=== PATIENT | male | born 1935 | race American Indian/Alaskan Native ===

== ENCOUNTER 2016-05-12 17:20 | Inpatient (IN) | payer MEDICARE ==
[2016-05-12 18:18] LABS: Hematocrit 26.5 % (35.5-45.6); Hemoglobin 8.6 gm/dl (11.8-15.2); Mean Corpuscular HGB Conc 32 % (32-34); Mean Corpuscular Hemoglobin 27 pg (28-32); Mean Corpuscular Volume 82 fl (84-94); Platelet Count 340 K/mm3 (140-440); Red Blood Count 3.24 M/mm3 (3.65-5.03); Red Cell Distribution Width 18.6 % (13.2-15.2); White Blood Count 9.6 K/mm3 (4.5-11.0)
[2016-05-12] MEDS ORDERED: DUONEB 0.5 MG-3 MG/3 ML SOLN IH ONE (18:18)
[2016-05-12 18:26] LABS: Anion Gap 25 mmol/L; Blood Urea Nitrogen 27 mg/dL (9-20); Calcium 9.4 mg/dL (8.4-10.2); Carbon Dioxide 17 mmol/L (22-30); Glucose 82 mg/dL (75-100); Potassium 5.5 mmol/L (3.6-5.0); Sodium 138 mmol/L (137-145)
--- NOTE | 2016-05-12 18:31 | Emergency Department Report ---
HPI - General Chief Complaint: Dyspnea/Respdistress Time Seen by Provider: 05/12/16 18:12 - HPI HPI: This is a 80-year-old Afro-Bhut[place] male presents to the emergency department by EMS from home with complaint of shortness of breath and some generalized chest tightness has been going on since this morning. The patient has been using his inhaler without much relief. He denies any fever, back pain, nausea, vomiting or diaphoresis. He has a history of asthma, COPD not on oxygen, diabetes, left lower extremity DVT, and multiple hip surgeries. Patient complains of a few days of left lower extremity swelling around the foot and ankle. He is on Coumadin from a previous DVT and says he has been compliant with medications. The patient lives alone but is not ambulatory and is able to do his ADLs by using crutches. He has a primary care doctor but cannot name at this current time. No recent travel. ED Past Medical Hx - Past Medical History Previous Medical History?: Yes Hx Hypertension: Yes Hx Diabetes: Yes Hx Arthritis: Yes Hx Asthma: Yes Hx COPD: Yes Hx HIV: No Additional medical history: left foot dvt - Surgical History Hx Appendectomy: Yes Additional Surgical History: Total hip replacement and surgeries x 19 (10/31/15: currently has residual infections from most recent hip replacement performed in 2014) - Social History Smoking Status: Former Smoker - Medications Home Medications: Home Medications Medication Instructions Recorded Confirmed Last Taken Type Lisinopril/Hydrochlorothiazide 1 tab PO QDAY 12/11/15 05/12/16 1 Day Ago History [Zestoretic 20-25 mg] Metformin HCl [Glucophage] 1 tab PO DAILY 01/17/16 05/12/16 Unknown History Ipratropium/Albuter (Nf) 2 puff IH QID #1 inha 01/24/16 05/12/16 Unknown Rx [Combivent Inhaler] Warfarin [Coumadin] 5 mg PO DAILY@1700 #10 tablet 01/24/16 05/12/16 Unknown Rx Azithromycin [Zithromax TAB] 250 mg PO QDAY #6 tablet 04/29/16 05/12/16 Unknown Rx Prednisone [predniSONE 10 mg 10 mg PO .TAPER #1 tab.ds.pk 04/29/16 05/12/16 Unknown Rx (6-Day Pack, 21 Tabs)] glipiZIDE [Glucotrol] 5 mg PO QDAY 05/12/16 05/12/16 Unknown History ED Review of Systems ROS: Stated complaint: ATTILA Other details as noted in HPI Comment: All other systems reviewed and negative Constitutional: denies: chills, fever Eyes: denies: eye pain, eye discharge, vision change ENT: denies: ear pain, throat pain Respiratory: cough, shortness of breath, wheezing Cardiovascular: chest pain, edema. denies: palpitations Gastrointestinal: denies: abdominal pain, nausea, diarrhea Genitourinary: denies: urgency, dysuria Musculoskeletal: denies: back pain, joint swelling, arthralgia Skin: denies: rash, lesions Neurological: denies: headache, weakness, paresthesias Physical Exam - Physical Exam Vital Signs: Vital Signs 05/12/16 05/12/16 05/12/16 17:32 17:36 17:44 Temperature 98.3 F Pulse Rate 122 H Blood Pressure 136/62 O2 Sat by Pulse 99 Oximetry Physical Exam: GENERAL: The patient is well-developed well-nourished. HEENT: Normocephalic. Atraumatic. Extraocular motions are intact. Patient has moist mucous membranes. Pupils equal reactive to light bilaterally. NECK: Supple. Trachea is midline. CHEST/LUNGS: Moderate wheezing throughout the chest. There is tachypnea but no accessory muscle use. There is no respiratory distress noted. HEART/CARDIOVASCULAR: Regular. There is mild tachycardia. There is no gallop rub or murmur. ABDOMEN: Abdomen is soft, nontender. Patient has normal bowel sounds. There is no abdominal distention. SKIN: Warm and dry. NEURO: The patient is awake, alert, and oriented. The patient is cooperative. The patient has no focal neurologic deficits. The patient has normal speech. MUSCULOSKELETAL: There is no tenderness or deformity. There is no limitation range of motion. There is no evidence of acute injury. ED Course Vital Signs 05/12/16 05/12/16 05/12/16 17:32 17:36 17:44 Temperature 98.3 F Pulse Rate 122 H Blood Pressure 136/62 O2 Sat by Pulse 99 Oximetry ED Medical Decision Making - Lab Data Result diagrams: 05/12/16 17:54 05/12/16 17:53 - EKG Data -: EKG Interpreted by Me EKG shows normal: sinus rhythm, axis, intervals, QRS complexes, ST-T waves Rate: tachycardia (109 bpm) - EKG Data When compared to previous EKG there are: previous EKG unavailable Interpretation: normal EKG (with sinus tach) - Radiology Data Radiology results: report reviewed, image reviewed interpreted by me: Chest x-ray shows some hyperinflation of the lungs and some signs of some interstitial lung disease. No obvious pneumonia. No pleural effusions. No pneumothorax. CT angiography of the chest shows no embolism or dissection. Emphysema and fibrotic densities are seen. - Medical Decision Making Is a 80-year-old male presents the emergency department with complaint of shortness of breath and some chest tightness this morning. Patient's lungs sound tight with some moderate wheezing but there is no respiratory distress seen. Patient was given some breathing treatments and steroids. Patient's labs show some hyperkalemia with potassium of 5.5, supratherapeutic INR and anemia. Patient still had a elevated and equivocal d-dimer and due to his complaints of pain and shortness of breath, despite his supratherapeutic INR, he had a CT angiography of the chest done that did not show any PE or dissection but did show signs of emphysema and some fibrotic densities. The patient had some hypoxia when he was first in the emergency department. This is improved with supplemental oxygen and breathing treatments. However the patient continues to have tachycardia and bronchospasm. This reason the patient will be admitted to the hospital for further evaluation and treatment has been accepted for admission by the hospitalist, Dr. Rodríguez. - Differential Diagnosis PE, [place], asthma, COPD, pneumonia, CHF Critical Care Time: No Critical care attestation.: If time is entered above; I have spent that time in minutes in the direct care of this critically ill patient, excluding procedure time. ED Disposition Clinical Impression: COPD with exacerbation, Shortness of breath, Supratherapeutic INR, Hyperkalemia Chest pain Qualifiers: Chest pain type: unspecified Qualified Code(s): R07.9 - Chest pain, unspecified Disposition: OP ADMITTED IP TO THIS HOSP Is pt being admited?: Yes Does the pt Need Aspirin: Yes Condition: Stable Instructions: Chronic Obstructive Pulmonary Disease (ED), Chest Pain (ED) Referrals: PRIMARY CARE, [Primary Care Provider] - 3-5 Days Time of Disposition: 00:50
[2016-05-12 18:49] LABS: INR 4.89 (0.87-1.13)
[2016-05-12 18:50] LABS: Partial Thromboplastin Time 56.4 Sec. (24.2-36.6)
[2016-05-12] MEDS ORDERED: PROVENTIL IH ONE (19:00)
[2016-05-12] MEDS ORDERED: KIONEX PO ONE (19:01)
[2016-05-12 19:56] LABS: Anisocytosis 1+; Basophils % (Manual) 0 % (0.0-1.8); Blastocytes % (Manual) 0 %; Eosinophils % (Manual) 0 % (0.0-4.3); Microcytosis 1+; Poikilocytosis 1+
[2016-05-12 19:57] LABS: Diff Status Complete; Elliptocytes 1+; Hypochromasia 1+; Platelet Estimate Consistent w Auto
[2016-05-12] MEDS ORDERED: NACL ONE (19:57)
[2016-05-12] MEDS ORDERED: BENADRYL ONE (21:05)
[2016-05-12] MEDS ORDERED: BENADRYL IV ONE (21:13)
--- NOTE | 2016-05-12 22:54 | Cat Scan Report ---
FINAL REPORT PROCEDURE: CT ANGIO CHEST TECHNIQUE: Computerized tomographic angiography of the chest was performed after the IV injection of iodinated nonionic contrast including image processing. The image data was postprocessed using 2-dimensional multiplanar reformatted (MPR) and 3-dimensional (MIP and/or volume rendered) techniques. HISTORY: SOB COMPARISON: January 18, 2016 FINDINGS: Heart and pericardium: Normal. Thoracic aorta: Aorta is calcified and tortuous. Pulmonary vasculature: Suboptimal enhancement. No embolism seen. Lymph nodes: Calcified mediastinal lymph nodes.. Lungs: Emphysema and fibrotic densities. Right upper lobe nodule measuring 0.6 cm, axial series 3, image 48. Moderate tracheomegaly. Pleural space: No effusion, thickening, or pneumothorax. Musculoskeletal structures: Degenerative change. Upper abdominal structures: Hepatic cysts. IMPRESSION: No embolism seen. Emphysema and fibrotic densities.
[2016-05-13] MEDS ORDERED: BABY ASPIRIN PO ONE (00:50)
[2016-05-13] MEDS ORDERED: DULCOLAX PR PRN (01:22)
[2016-05-13] MEDS ORDERED: MILK OF MAGNESIA PO PRN (01:22)
[2016-05-13] MEDS ORDERED: ZOFRAN IV PRN (01:22)
--- NOTE | 2016-05-13 01:26 | History and Physical Report ---
History of Present Illness Date of examination: 05/13/16 History of present illness: 80-year-old man with a history of COPD, hypertension, diabetes, CHF constant emergency room with worsening shortness of breath, cough productive of thick white phlegm,, not relieved with his nebulizer treatments at home Patient denies chest pain, palpitation, abdominal pain, hematochezia, dysuria, frequency, focal weakness, dysarthria, fever chills, polydipsia polyuria, hot or cold intolerance, easy bruisability, or rash or bleeding from mucosal membrane, rhinorrhea, epistaxis, earache, tinnitus, blurry vision, eye discharge , anxiety, depression. Other review of systems negative PAST SURGICAL HISTORY: Appendectomy, hip replacement SOCIAL HISTORY: Denies alcohol, tobacco, drugs FAMILY HISTORY: Hypertension Medications and Allergies Allergies Allergy/AdvReac Type Severity Reaction Status Date / Time iodine Allergy Shortness Verified 09/09/15 21:37 of Breath shellfish derived Allergy Shortness Verified 10/31/15 02:03 of Breath Home Medications Medication Instructions Recorded Confirmed Last Taken Type Lisinopril/Hydrochlorothiazide 1 tab PO QDAY 12/11/15 05/12/16 1 Day Ago History [Zestoretic 20-25 mg] Metformin HCl [Glucophage] 1 tab PO DAILY 01/17/16 05/12/16 Unknown History Ipratropium/Albuter (Nf) 2 puff IH QID #1 inha 01/24/16 05/12/16 Unknown Rx [Combivent Inhaler] Warfarin [Coumadin] 5 mg PO DAILY@1700 #10 tablet 01/24/16 05/12/16 Unknown Rx Azithromycin [Zithromax TAB] 250 mg PO QDAY #6 tablet 04/29/16 05/12/16 Unknown Rx Prednisone [predniSONE 10 mg 10 mg PO .TAPER #1 tab.ds.pk 04/29/16 05/12/16 Unknown Rx (6-Day Pack, 21 Tabs)] glipiZIDE [Glucotrol] 5 mg PO QDAY 05/12/16 05/12/16 Unknown History Exam - Physical Exam Narrative exam: Gen. appearance: Patient lying in bed, no apparent distress HEENT: Normocephalic, atraumatic, pupils equally round and reactive to light, extraocular movement intact, and no sclericterus,. No JVD or thyromegaly or nodule,neck supple, no carotid bruit ,mucous membranes moist, no exudate or erythema Heart: S1, S2, regular rate and rhythm Lungs: Clear to auscultation bilaterally, breathing comfortable Abdomen: Positive bowel sounds, nontender, nondistended, no organomegaly Extremity: No edema, cyanosis, clubbing Skin: No rash, nodules, warm, dry Neuro: Oriented 3, cranial nerves II-12 intact, speech is fluent, motor and sensory intact - Constitutional Vitals: Temp Pulse Resp BP Pulse Ox 98.3 F 121 H 26 H 132/66 99 05/12/16 17:36 05/12/16 21:00 05/12/16 21:00 05/12/16 21:00 05/12/16 21:00 Results - Labs CBC & Chem 7: 05/12/16 17:54 05/12/16 17:53 Labs: Abnormal lab results 05/12/16 05/12/16 05/12/16 Range/Units 17:53 17:54 18:25 RBC 3.24 L (3.65-5.03) M/mm3 Hgb 8.6 L (11.8-15.2) gm/dl Hct 26.5 L (35.5-45.6) % MCV 82 L (84-94) fl MCH 27 L (28-32) pg RDW 18.6 H (13.2-15.2) % Seg Neuts % (Manual) 91.0 H (40.0-70.0) % Lymphocytes % (Manual) 2.0 L (13.4-35.0) % Seg Neutrophils # Man 8.7 H (1.8-7.7) K/mm3 Lymphocytes # (Manual) 0.2 L (1.2-5.4) K/mm3 PT 46.2 H (12.2-14.9) Sec. INR 4.89 H (0.87-1.13) APTT 56.4 H (24.2-36.6) Sec. D-Dimer 1051.41 H (0-234) ng/mlDDU Potassium 5.5 H (3.6-5.0) mmol/L Carbon Dioxide 17 L (22-30) mmol/L BUN 27 H (9-20) mg/dL - Imaging and Cardiology EKG: image reviewed Chest x-ray: image reviewed CT scan - chest: report reviewed Assessment and Plan COPD exacerbation Hypertension Diabetes CHF, stable Admits medicine Start high-dose IV steroids, nebulizer treatments Check cardiac enzymes, fingersticks, and initiate insulin sliding scale Continue outpatient medications, start dvt prophalaxis
[2016-05-13] MEDS ORDERED: CARDIZEM ONE (02:06)
[2016-05-13] MEDS ORDERED: TYLENOL ONE (02:13)
[2016-05-13] MEDS ORDERED: CARDIZEM PO ONE (02:14)
[2016-05-13 02:18] LABS: Creatine Kinase MB 2.3 ng/mL (0.0-4.0)
[2016-05-13 02:19] LABS: Creatine Kinase 97 units/L (55-170)
[2016-05-13] MEDS: TYLENOL PO PRN ×3 (02:21→21:29)
[2016-05-13] MEDS ORDERED: BABY ASPIRIN ONE (02:25)
[2016-05-13] MEDS ORDERED: DUONEB 0.5 MG-3 MG/3 ML SOLN IH ONE (02:26)
[2016-05-13] MEDS: DUONEB 0.5 MG-3 MG/3 ML SOLN IH SCH ×4 (02:27→20:28)
[2016-05-13 03:48] LABS: Creatine Kinase MB 2.4 ng/mL (0.0-4.0)
[2016-05-13 08:32] LABS: Creatine Kinase MB 2.1 ng/mL (0.0-4.0)
--- NOTE | 2016-05-13 08:35 | XRay Report ---
AP CHEST: HISTORY: Shortness of breath Mild chronic interstitial changes and chronic granulomatous findings are stable since 04/26/16. No evidence for pneumonia, pleural effusion or pneumothorax. Heart size is within normal limits. IMPRESSION: No acute cardiopulmonary process.
--- NOTE | 2016-05-13 09:32 | Admit Criteria Form ---
Admission Criteria Documentation: COPD Clinical Indications for Admission to Inpatient Care (Place 'X' for any and all applicable criteria): Admission is indicated for ANY ONE of the following (1)(2)(3): [ ]I. Acute exacerbation by high-risk comorbidity (e.g., pneumonia, dysrhythmia, heart failure, pleural effusion, pneumothorax) or severe underlying COPD (e.g., steroid dependent) [X]II. Inpatient admission required rather than observation care (see Chronic Obstructive Pulmonary Disease: Observation Care) because of ANY ONE of the following: [X]a) New or pre-existing signs or symptoms of COPD (eg, dyspnea or Tachypnea at rest or with minimal activity) that persist despite outpatient and observation care treatment [ ]b) New-onset hypoxemia (room air SaO2 less than 90%, PO2 less than 60 mm Hg (8.0 kPa)) that persists despite outpatient and observation care treatment [ ]c) Worsening of pre-existing hypoxemia (eg, new or increased requirement for supplemental oxygen to maintain oxygenation at baseline level) that persists despite outpatient and observation care treatment, with oxygen treatment needs performable only in acute inpatient setting [ ]d) Hypercarbia (PCO2 greater than 40 mm Hg (5.3 kPa))-induced respiratory acidosis (pH less than 7.35) that persists despite outpatient and observation care treatment [ ]e) Supplemental oxygen or respiratory treatments for over 24 hours that are performable only in acute inpatient setting [ ]f) Chest tube placement with active evacuation (e.g., suction, drainage) (5) [ ]g) Other condition, treatment or monitoring requiring inpatient admission [ ]III. Planned invasive surgical or diagnostic procedures requiring acute- care hospitalization [ ]IV. Acute respiratory failure (e.g., uncompensated hypercarbia, severe hypoxemia) [ ]V. Severe comorbid condition (e.g., severe steroid myopathy, acute vertebral fracture) that has acutely worsened pulmonary function [ ]. Confusion state, lethargy, obtundation, stupor or coma Extended stay beyond goal length of stay may be needed for (31)(32): [ ]a ) Respiratory Failure. [ ]b) Severe or persisting hypoxemia or hypercarbia [ ]c) Severe or persistent dyspnea [ ]d) Comorbidities (e.g. chronic heart failure, atrial fibrillation with rapid response, pneumonia) [ ]e) Malnutrition The original [facility] content created by [facility] has been revised. The portions of the content which have been revised are identified through the use of italic text or in bold, and [facility] has neither reviewed nor approved the modified material. All other unmodified content is copyright [facility]. Please see references footnoted in the original [facility] edition 2016 Admission Criteria Met: Yes
[2016-05-13] MEDS ORDERED: D50W (25GM) IV PRN (11:59)
[2016-05-13] MEDS ORDERED: PROVENTIL IH PRN (12:37)
[2016-05-13] MEDS ORDERED: NON-FORMULARY (Ipratropium/Albuter (Nf) 2 PUFF) IH SCH (14:00)
[2016-05-13 14:24] LABS: INR 7.6 (0.87-1.13)
[2016-05-13] MEDS ORDERED: COUMADIN PO SCH ×2 (17:00)
[2016-05-13] MEDS: NOVOLOG SUB-Q SCH (17:48)
[2016-05-14] MEDS: NOVOLOG SUB-Q SCH ×6 (00:46→22:33)
[2016-05-14] MEDS: DUONEB 0.5 MG-3 MG/3 ML SOLN IH SCH ×5 (01:04→19:41)
[2016-05-14 05:51] LABS: Hematocrit 22.6 % (35.5-45.6); Hemoglobin 7.4 gm/dl (11.8-15.2); Mean Corpuscular HGB Conc 33 % (32-34); Mean Corpuscular Hemoglobin 27 pg (28-32); Mean Corpuscular Volume 81 fl (84-94); Platelet Count 324 K/mm3 (140-440); Red Blood Count 2.79 M/mm3 (3.65-5.03); Red Cell Distribution Width 18.4 % (13.2-15.2); White Blood Count 10.9 K/mm3 (4.5-11.0)
[2016-05-14 06:04] LABS: Anion Gap 20 mmol/L; Blood Urea Nitrogen 34 mg/dL (9-20); Calcium 8.8 mg/dL (8.4-10.2); Carbon Dioxide 22 mmol/L (22-30); Chloride 101.4 mmol/L (98-107); Glucose 166 mg/dL (75-100); Potassium 5.3 mmol/L (3.6-5.0); Sodium 138 mmol/L (137-145)
[2016-05-14 06:05] LABS: INR 6.46 (0.87-1.13)
[2016-05-14 07:26] LABS: INR 6.12 (0.87-1.13)
[2016-05-14 07:36] LABS: Basophils % (Manual) 0 % (0.0-1.8); Blastocytes % (Manual) 0 %; Eosinophils % (Manual) 0 % (0.0-4.3)
[2016-05-14 07:37] LABS: Anisocytosis 1+; Diff Status Complete; Elliptocytes Few; Hypochromasia 1+; Poikilocytosis Few; Schistocytes Rare
[2016-05-14] MEDS: TYLENOL PO PRN ×3 (08:27→21:07)
--- NOTE | 2016-05-14 09:53 | Progress Note ---
Assessment and Plan Assessment and plan: 1. Acute hypoxemic respiratory failure. Continue O2 for supportive care. Etiology secondary to COPD exacerbation. CTA negative for PE 2. Acute COPD exacerbation. Continue IV steroids, bronchodilators, nebulizers and O2 for supportive care. 3. Hypertension. Resume antihypertensive medications. 4. Type 2 diabetes mellitus. Continue Accu-Cheks and sliding scale. 5. Coagulopathy. Continue to hold Coumadin. 6. Anemia. Given the anticoagulation will check Hemoccult of stools. Transfuse for hemoglobin less than 7.0. History Interval history: No new issues overnight. Hospitalist Physical - Constitutional Vitals: Temp Pulse Resp BP Pulse Ox 98.2 F 95 H 20 100/55 97 05/13/16 16:00 05/14/16 02:46 05/14/16 02:46 05/13/16 16:00 05/13/16 16:00 General appearance: Present: no acute distress, well-nourished - EENT Eyes: Present: PERRL, EOM intact ENT: hearing intact, clear oral mucosa, dentition normal - Neck Neck: Present: supple, normal ROM - Respiratory Respiratory effort: normal Respiratory: bilateral: diminished, rhonchi, wheezing - Cardiovascular Rhythm: regular Heart Sounds: Present: S1 & S2. Absent: gallop, rub - Extremities Extremities: no ischemia, No edema, Full ROM - Abdominal General gastrointestinal: soft, non-tender, non-distended, normal bowel sounds - Integumentary Integumentary: Present: clear, warm, dry - Neurologic Neurologic: CNII-XII intact, moves all extremities Results - Labs CBC & Chem 7: 05/14/16 05:23 05/14/16 05:23 Labs: Laboratory Last Values WBC 10.9 K/mm3 (4.5-11.0) 05/14/16 05:23 RBC 2.79 M/mm3 (3.65-5.03) L 05/14/16 05:23 Hgb 7.4 gm/dl (11.8-15.2) L 05/14/16 05:23 Hct 22.6 % (35.5-45.6) L 05/14/16 05:23 MCV 81 fl (84-94) L 05/14/16 05:23 MCH 27 pg (28-32) L 05/14/16 05:23 MCHC 33 % (32-34) 05/14/16 05:23 RDW 18.4 % (13.2-15.2) H 05/14/16 05:23 Plt Count 324 K/mm3 (140-440) 05/14/16 05:23 Add Manual Diff Complete 05/14/16 05:23 Total Counted 100 05/14/16 05:23 Seg Neutrophils % [employer] 05/14/16 05:23 Seg Neuts % (Manual) 91.0 % (40.0-70.0) H 05/14/16 05:23 Band Neutrophils % 0 % 05/14/16 05:23 Lymphocytes % (Manual) 6.0 % (13.4-35.0) L 05/14/16 05:23 Reactive Lymphs % (Man) 0 % 05/14/16 05:23 Monocytes % (Manual) 3.0 % (0.0-7.3) 05/14/16 05:23 Eosinophils % (Manual) 0 % (0.0-4.3) 05/14/16 05:23 Basophils % (Manual) 0 % (0.0-1.8) 05/14/16 05:23 Metamyelocytes % 0 % 05/14/16 05:23 Myelocytes % 0 % 05/14/16 05:23 Promyelocytes % 0 % 05/14/16 05:23 Blast Cells % 0 % 05/14/16 05:23 Nucleated RBC % Not Reportable 05/14/16 05:23 Seg Neutrophils # Man 9.9 K/mm3 (1.8-7.7) H 05/14/16 05:23 Band Neutrophils # 0.0 K/mm3 05/14/16 05:23 Lymphocytes # (Manual) 0.7 K/mm3 (1.2-5.4) L 05/14/16 05:23 Abs React Lymphs (Man) 0.0 K/mm3 05/14/16 05:23 Monocytes # (Manual) 0.3 K/mm3 (0.0-0.8) 05/14/16 05:23 Eosinophils # (Manual) 0.0 K/mm3 (0.0-0.4) 05/14/16 05:23 Basophils # (Manual) 0.0 K/mm3 (0.0-0.1) 05/14/16 05:23 Metamyelocytes # 0.0 K/mm3 05/14/16 05:23 Myelocytes # 0.0 K/mm3 05/14/16 05:23 Promyelocytes # 0.0 K/mm3 05/14/16 05:23 Blast Cells # 0.0 K/mm3 05/14/16 05:23 WBC Morphology Not Reportable 05/14/16 05:23 Hypersegmented Neuts Not Reportable 05/14/16 05:23 Hyposegmented Neuts Not Reportable 05/14/16 05:23 Hypogranular Neuts Not Reportable 05/14/16 05:23 Smudge Cells Not Reportable 05/14/16 05:23 Toxic Granulation Not Reportable 05/14/16 05:23 Toxic Vacuolation Not Reportable 05/14/16 05:23 Dohle Bodies Not Reportable 05/14/16 05:23 Pelger-Huet Anomaly Not Reportable 05/14/16 05:23 Yvonne Rods Not Reportable 05/14/16 05:23 Platelet Estimate Appears normal 05/14/16 05:23 Clumped Platelets Not Reportable 05/14/16 05:23 Plt Clumps, EDTA Not Reportable 05/14/16 05:23 Large Platelets Not Reportable 05/14/16 05:23 Giant Platelets Not Reportable 05/14/16 05:23 Platelet Satelliting Not Reportable 05/14/16 05:23 Plt Morphology Comment Not Reportable 05/14/16 05:23 RBC Morphology Not Reportable 05/14/16 05:23 Dimorphic RBCs Not Reportable 05/14/16 05:23 Polychromasia Not Reportable 05/14/16 05:23 Hypochromasia 1+ 05/14/16 05:23 Poikilocytosis Few 05/14/16 05:23 Anisocytosis 1+ 05/14/16 05:23 Microcytosis Not Reportable 05/14/16 05:23 Macrocytosis Not Reportable 05/14/16 05:23 Spherocytes Not Reportable 05/14/16 05:23 Pappenheimer Bodies Not Reportable 05/14/16 05:23 Sickle Cells Not Reportable 05/14/16 05:23 Target Cells Not Reportable 05/14/16 05:23 Tear Drop Cells Not Reportable 05/14/16 05:23 Ovalocytes Not Reportable 05/14/16 05:23 Helmet Cells Not Reportable 05/14/16 05:23 Ngo-Chaumont Bodies Not Reportable 05/14/16 05:23 [place] Rings Not Reportable 05/14/16 05:23 [place] Cells Not Reportable 05/14/16 05:23 Bite Cells Not Reportable 05/14/16 05:23 Crenated Cell Not Reportable 05/14/16 05:23 Elliptocytes Few 05/14/16 05:23 Acanthocytes (Spur) Not Reportable 05/14/16 05:23 Rouleaux Not Reportable 05/14/16 05:23 Hemoglobin C Crystals Not Reportable 05/14/16 05:23 Schistocytes Rare 05/14/16 05:23 Malaria parasites Not Reportable 05/14/16 05:23 Miguel Angel Bodies Not Reportable 05/14/16 05:23 Hem Pathologist Commnt No 05/14/16 05:23 PT 55.2 Sec. (12.2-14.9) H 05/14/16 06:49 INR 6.12 (0.87-1.13) H* 05/14/16 06:49 APTT 56.4 Sec. (24.2-36.6) H 05/12/16 18:25 D-Dimer 1051.41 ng/mlDDU (0-234) H 05/12/16 18:25 Sodium 138 mmol/L (137-145) 05/14/16 05:23 Potassium 5.3 mmol/L (3.6-5.0) H 05/14/16 05:23 Chloride 101.4 mmol/L (98-107) 05/14/16 05:23 Carbon Dioxide 22 mmol/L (22-30) 05/14/16 05:23 Anion Gap 20 mmol/L 05/14/16 05:23 BUN 34 mg/dL (9-20) H 05/14/16 05:23 Creatinine 1.0 mg/dL (0.8-1.5) 05/14/16 05:23 Estimated GFR > 60 ml/min 05/14/16 05:23 BUN/Creatinine Ratio 34.00 % 05/14/16 05:23 Glucose 166 mg/dL (75-100) H 05/14/16 05:23 POC Glucose 168 (70-105) H 05/14/16 06:09 Calcium 8.8 mg/dL (8.4-10.2) 05/14/16 05:23 Total Creatine Kinase 86 units/L (55-170) 05/13/16 08:04 CK-MB (CK-2) 2.1 ng/mL (0.0-4.0) 05/13/16 08:04 CK-MB (CK-2) Rel Index 2.4 (0-4) 05/13/16 08:04 Troponin T < 0.010 ng/mL (0.00-0.029) 05/13/16 08:04 NT-Pro-B Natriuret Pep 94.04 pg/mL (0-900) 05/12/16 17:53
[2016-05-14] MEDS ORDERED: NON-FORMULARY (Lisinopril/Hydrochlorothiazide [Zestoretic 20-25 Mg] 1 TAB) PO SCH (10:00)
[2016-05-14] MEDS: HCTZ PO SCH (11:10)
[2016-05-14] MEDS: ZESTRIL PO SCH (11:10)
[2016-05-15] MEDS: TYLENOL PO PRN ×3 (01:41→11:29)
[2016-05-15] MEDS: DUONEB 0.5 MG-3 MG/3 ML SOLN IH SCH ×4 (04:22→20:42)
[2016-05-15 06:33] LABS: Hematocrit 23.3 % (35.5-45.6); Hemoglobin 7.5 gm/dl (11.8-15.2); Mean Corpuscular HGB Conc 32 % (32-34); Mean Corpuscular Hemoglobin 26 pg (28-32); Mean Corpuscular Volume 81 fl (84-94); Platelet Count 340 K/mm3 (140-440); Red Blood Count 2.88 M/mm3 (3.65-5.03); Red Cell Distribution Width 18.5 % (13.2-15.2); White Blood Count 11.3 K/mm3 (4.5-11.0)
[2016-05-15 06:44] LABS: INR 4.52 (0.87-1.13)
[2016-05-15 06:57] LABS: Anion Gap 22 mmol/L; BUN/Creatinine Ratio 31.81; Blood Urea Nitrogen 35 mg/dL (9-20); Calcium 8.7 mg/dL (8.4-10.2); Carbon Dioxide 24 mmol/L (22-30); Chloride 96.4 mmol/L (98-107); Glucose 166 mg/dL (75-100); Sodium 137 mmol/L (137-145)
[2016-05-15] MEDS: NOVOLOG SUB-Q SCH ×4 (07:54→23:48)
[2016-05-15 08:00] LABS: Basophils % (Manual) 0 % (0.0-1.8); Blastocytes % (Manual) 0 %; Eosinophils % (Manual) 0 % (0.0-4.3)
[2016-05-15 08:02] LABS: Anisocytosis 1+; Diff Status Complete; Elliptocytes 1+; Hypochromasia 1+; Ovalocytes Few; Polychromasia 1+
[2016-05-15] MEDS: ZESTRIL PO SCH (11:20)
[2016-05-15] MEDS: HCTZ PO SCH (11:21)
--- NOTE | 2016-05-15 12:25 | Discharge Summary ---
Providers - Providers Date of Admission: 05/13/16 01:22 Date of discharge: 05/16/16 Attending physician: DENICE LOMBARDI Primary care physician: JO ANN ALBA MD Hospitalization Reason for admission: sob Condition: Stable Hospital course: 80-year-old man with a history of COPD, hypertension, diabetes and CHF who presented to the emergency room with worsening shortness of breath, cough productive of thick white phlegm .not relieved with his nebulizer treatments at home. Patient was admitted with a diagnosis of COPD exacerbation with bronchitis. Patient was initially treated with high-dose Solu-Medrol IV which was later transitioned to by mouth prednisone. Patient has significant improvement throughout hospitalization. Patient felt that his breathing returned to his baseline. He was felt to have received maximal hospital benefit to be discharged home. Dedicated discharge time 35 minutes. Disposition: DISCHARGED TO HOME OR SELFCARE Time spent for discharge: 35 - Discharge Diagnoses (1) COPD with exacerbation Status: Acute (2) Acute exacerbation of COPD with asthma Status: Acute (3) Acute renal failure Status: Acute Qualifiers: Acute renal failure type: A Core Measure Documentation - Palliative Care Palliative Care/ Comfort Measures: Not Applicable - Core Measures Any of the following diagnoses?: none Exam - Constitutional Vitals: Temp Pulse Resp BP Pulse Ox 99 F 94 H 20 110/60 94 05/15/16 08:00 05/15/16 11:20 05/15/16 08:00 05/15/16 11:20 05/15/16 08:00 General appearance: Present: no acute distress, well-nourished - EENT Eyes: Present: PERRL ENT: hearing intact, clear oral mucosa - Neck Neck: Present: supple, normal ROM - Respiratory Respiratory effort: normal Respiratory: bilateral: CTA - Cardiovascular Heart Sounds: Present: S1 & S2. Absent: rub, click - Extremities Extremities: pulses symmetrical, No edema Peripheral Pulses: within normal limits - Abdominal General gastrointestinal: Present: soft, non-tender, non-distended, normal bowel sounds Male genitourinary: Present: normal - Integumentary Integumentary: Present: clear, warm, dry - Musculoskeletal Musculoskeletal: gait normal, strength equal bilaterally - Psychiatric Psychiatric: appropriate mood/affect, intact judgment & insight - Neurologic Neurologic: CNII-XII intact, moves all extremities Plan Activity: no restrictions Weight Bearing Status: Full Weight Bearing Diet: regular Follow up with: PRIMARY CARE, [Primary Care Provider] - 3-5 Days Forms: Warfarin Discharge Instruction Prescriptions: Azithromycin [Zithromax TAB] 250 mg PO QDAY #6 tablet glipiZIDE [Glucotrol] 5 mg PO QDAY #30 tablet Ipratropium/Albuter (Nf) [Combivent Inhaler] 2 puff IH QID #1 inha Lisinopril/Hydrochlorothiazide [Zestoretic 20-25 mg] 1 tab PO QDAY #30 tablet Metformin HCl [Glucophage] 1 tab PO DAILY #30 tablet Prednisone [predniSONE 10 mg (6-Day Pack, 21 Tabs)] 10 mg PO .TAPER #1 tab.ds.pk Warfarin [Coumadin] 5 mg PO DAILY@1700 #10 tablet
--- NOTE | 2016-05-15 12:30 | Progress Note ---
Assessment and Plan Assessment and plan: 1. Acute hypoxemic respiratory failure. Continue O2 for supportive care. Etiology secondary to COPD exacerbation. CTA negative for PE 2. Acute COPD exacerbation. Continue IV steroids, bronchodilators, nebulizers and O2 for supportive care. Anticipate discharge in a.m. 3. Hypertension. Resume antihypertensive medications. 4. Type 2 diabetes mellitus. Continue Accu-Cheks and sliding scale. 5. Coagulopathy. Continue to hold Coumadin. 6. Anemia. Given the anticoagulation will check Hemoccult of stools. Transfuse for hemoglobin less than 7.0. - Patient Problems (1) COPD with exacerbation Current Visit: Yes Status: Acute (2) Acute exacerbation of COPD with asthma Current Visit: No Status: Acute (3) Acute renal failure Current Visit: No Status: Acute Qualifiers: Acute renal failure type: A History Interval history: No new issues overnight. Hospitalist Physical - Constitutional Vitals: Temp Pulse Resp BP Pulse Ox 99 F 94 H 20 110/60 94 05/15/16 08:00 05/15/16 11:20 05/15/16 08:00 05/15/16 11:20 05/15/16 08:00 General appearance: Present: no acute distress, well-nourished - EENT Eyes: Present: PERRL, EOM intact ENT: hearing intact, clear oral mucosa, dentition normal - Neck Neck: Present: supple, normal ROM - Respiratory Respiratory effort: normal Respiratory: bilateral: diminished, wheezing (mild) - Cardiovascular Rhythm: regular Heart Sounds: Present: S1 & S2. Absent: gallop, rub - Extremities Extremities: no ischemia, No edema, Full ROM - Abdominal General gastrointestinal: soft, non-tender, non-distended, normal bowel sounds - Integumentary Integumentary: Present: clear, warm, dry - Neurologic Neurologic: CNII-XII intact, moves all extremities Results - Labs CBC & Chem 7: 05/15/16 06:03 05/15/16 06:02 Labs: Laboratory Last Values WBC 11.3 K/mm3 (4.5-11.0) H 05/15/16 06:03 RBC 2.88 M/mm3 (3.65-5.03) L 05/15/16 06:03 Hgb 7.5 gm/dl (11.8-15.2) L 05/15/16 06:03 Hct 23.3 % (35.5-45.6) L 05/15/16 06:03 MCV 81 fl (84-94) L 05/15/16 06:03 MCH 26 pg (28-32) L 05/15/16 06:03 MCHC 32 % (32-34) 05/15/16 06:03 RDW 18.5 % (13.2-15.2) H 05/15/16 06:03 Plt Count 340 K/mm3 (140-440) 05/15/16 06:03 Add Manual Diff Complete 05/15/16 06:03 Total Counted 100 05/15/16 06:03 Seg Neutrophils % [employer] 05/15/16 06:03 Seg Neuts % (Manual) 90.0 % (40.0-70.0) H 05/15/16 06:03 Band Neutrophils % 3.0 % 05/15/16 06:03 Lymphocytes % (Manual) 5.0 % (13.4-35.0) L 05/15/16 06:03 Reactive Lymphs % (Man) 0 % 05/15/16 06:03 Monocytes % (Manual) 2.0 % (0.0-7.3) 05/15/16 06:03 Eosinophils % (Manual) 0 % (0.0-4.3) 05/15/16 06:03 Basophils % (Manual) 0 % (0.0-1.8) 05/15/16 06:03 Metamyelocytes % 0 % 05/15/16 06:03 Myelocytes % 0 % 05/15/16 06:03 Promyelocytes % 0 % 05/15/16 06:03 Blast Cells % 0 % 05/15/16 06:03 Nucleated RBC % Not Reportable 05/15/16 06:03 Seg Neutrophils # Man 10.2 K/mm3 (1.8-7.7) H 05/15/16 06:03 Band Neutrophils # 0.3 K/mm3 05/15/16 06:03 Lymphocytes # (Manual) 0.6 K/mm3 (1.2-5.4) L 05/15/16 06:03 Abs React Lymphs (Man) 0.0 K/mm3 05/15/16 06:03 Monocytes # (Manual) 0.2 K/mm3 (0.0-0.8) 05/15/16 06:03 Eosinophils # (Manual) 0.0 K/mm3 (0.0-0.4) 05/15/16 06:03 Basophils # (Manual) 0.0 K/mm3 (0.0-0.1) 05/15/16 06:03 Metamyelocytes # 0.0 K/mm3 05/15/16 06:03 Myelocytes # 0.0 K/mm3 05/15/16 06:03 Promyelocytes # 0.0 K/mm3 05/15/16 06:03 Blast Cells # 0.0 K/mm3 05/15/16 06:03 WBC Morphology Not Reportable 05/15/16 06:03 Hypersegmented Neuts Not Reportable 05/15/16 06:03 Hyposegmented Neuts Not Reportable 05/15/16 06:03 Hypogranular Neuts Not Reportable 05/15/16 06:03 Smudge Cells Not Reportable 05/15/16 06:03 Toxic Granulation Not Reportable 05/15/16 06:03 Toxic Vacuolation Not Reportable 05/15/16 06:03 Dohle Bodies Not Reportable 05/15/16 06:03 Pelger-Huet Anomaly Not Reportable 05/15/16 06:03 Yvonne Rods Not Reportable 05/15/16 06:03 Platelet Estimate Appears normal 05/15/16 06:03 Clumped Platelets Not Reportable 05/15/16 06:03 Plt Clumps, EDTA Not Reportable 05/15/16 06:03 Large Platelets Not Reportable 05/15/16 06:03 Giant Platelets Not Reportable 05/15/16 06:03 Platelet Satelliting Not Reportable 05/15/16 06:03 Plt Morphology Comment Not Reportable 05/15/16 06:03 RBC Morphology Not Reportable 05/15/16 06:03 Dimorphic RBCs Not Reportable 05/15/16 06:03 Polychromasia 1+ 05/15/16 06:03 Hypochromasia 1+ 05/15/16 06:03 Poikilocytosis Not Reportable 05/15/16 06:03 Anisocytosis 1+ 05/15/16 06:03 Microcytosis Not Reportable 05/15/16 06:03 Macrocytosis Not Reportable 05/15/16 06:03 Spherocytes Not Reportable 05/15/16 06:03 Pappenheimer Bodies Not Reportable 05/15/16 06:03 Sickle Cells Not Reportable 05/15/16 06:03 Target Cells Not Reportable 05/15/16 06:03 Tear Drop Cells Not Reportable 05/15/16 06:03 Ovalocytes Few 05/15/16 06:03 Helmet Cells Not Reportable 05/15/16 06:03 [place] Bodies Not Reportable 05/15/16 06:03 [place] Rings Not Reportable 05/15/16 06:03 Alvin Cells Not Reportable 05/15/16 06:03 Bite Cells Not Reportable 05/15/16 06:03 Crenated Cell Not Reportable 05/15/16 06:03 Elliptocytes 1+ 05/15/16 06:03 Acanthocytes (Spur) Not Reportable 05/15/16 06:03 Rouleaux Not Reportable 05/15/16 06:03 Hemoglobin C Crystals Not Reportable 05/15/16 06:03 Schistocytes Not Reportable 05/15/16 06:03 Malaria parasites Not Reportable 05/15/16 06:03 Miguel Angel Bodies Not Reportable 05/15/16 06:03 Hem Pathologist Commnt No 05/15/16 06:03 PT 43.4 Sec. (12.2-14.9) H 05/15/16 06:02 INR 4.52 (0.87-1.13) H 05/15/16 06:02 APTT 56.4 Sec. (24.2-36.6) H 05/12/16 18:25 D-Dimer 1051.41 ng/mlDDU (0-234) H 05/12/16 18:25 Sodium 137 mmol/L (137-145) 05/15/16 06:02 Potassium 5.0 mmol/L (3.6-5.0) 05/15/16 06:02 Chloride 96.4 mmol/L (98-107) L 05/15/16 06:02 Carbon Dioxide 24 mmol/L (22-30) 05/15/16 06:02 Anion Gap 22 mmol/L 05/15/16 06:02 BUN 35 mg/dL (9-20) H 05/15/16 06:02 Creatinine 1.1 mg/dL (0.8-1.5) 05/15/16 06:02 Estimated GFR > 60 ml/min 05/15/16 06:02 BUN/Creatinine Ratio 31.81 % 05/15/16 06:02 Glucose 166 mg/dL (75-100) H 05/15/16 06:02 POC Glucose 183 (70-105) H 05/15/16 07:39 Calcium 8.7 mg/dL (8.4-10.2) 05/15/16 06:02 Total Creatine Kinase 86 units/L (55-170) 05/13/16 08:04 CK-MB (CK-2) 2.1 ng/mL (0.0-4.0) 05/13/16 08:04 CK-MB (CK-2) Rel Index 2.4 (0-4) 05/13/16 08:04 Troponin T < 0.010 ng/mL (0.00-0.029) 05/13/16 08:04 NT-Pro-B Natriuret Pep 94.04 pg/mL (0-900) 05/12/16 17:53
[2016-05-15] MEDS: PERCOCET 5/325 PO PRN (20:30)
[2016-05-16 06:12] LABS: INR 2.69 (0.87-1.13)
[2016-05-16] MEDS: PERCOCET 5/325 PO PRN ×2 (06:23→17:05)
[2016-05-16] MEDS: DUONEB 0.5 MG-3 MG/3 ML SOLN IH SCH ×3 (07:42→20:32)
[2016-05-16] MEDS: NOVOLOG SUB-Q SCH ×3 (08:15→16:54)
[2016-05-16 08:47] LABS: Anion Gap 18 mmol/L; Blood Urea Nitrogen 36 mg/dL (9-20); Calcium 8.4 mg/dL (8.4-10.2); Carbon Dioxide 24 mmol/L (22-30); Chloride 95.3 mmol/L (98-107); Glucose 142 mg/dL (75-100); Potassium 4.9 mmol/L (3.6-5.0); Sodium 132 mmol/L (137-145)
[2016-05-16] MEDS: ZESTRIL PO SCH (11:00)
[2016-05-16] MEDS: HCTZ PO SCH (11:00)
[2016-05-16] MEDS ORDERED: COUMADIN PO SCH (17:00)
[2016-05-16 20:17] VITALS: BP 104/63
== END 2016-05-16 20:30 | disposition home or self-care (01) | DRG 189 ==
LOC: ED 17:20 → 3A 05-13 01:22 → CC2 05-14 12:14
PROVIDERS: ADMIT Internal Medicine; ATTEND Hospitalist
DX: J96.01 Acute respiratory failure with hypoxia (principal); J44.1 Chronic obstructive pulmonary disease with (acute) exacerbation; D68.9 Coagulation defect, unspecified; N17.9 Acute kidney failure, unspecified; I50.9 Heart failure, unspecified; E11.9 Type 2 diabetes mellitus without complications; M19.90 Unspecified osteoarthritis, unspecified site; Z96.649 Presence of unspecified artificial hip joint; I11.0 Hypertensive heart disease with heart failure; D64.9 Anemia, unspecified; J45.909 Unspecified asthma, uncomplicated; Z86.718 Personal history of other venous thrombosis and embolism; Z87.891 Personal history of nicotine dependence; Z82.49 Family history of ischemic heart disease and other diseases of the circulatory system; Z91.013 Allergy to seafood; Z91.041 Radiographic dye allergy status
CPT/HCPCS: 36415; 71010; 71275; 80048; 82550; 82553; 82962; 83880; 84484; 85007; 85025; 85379; 85610; 85730; 93005; 93010; 94640; 94760; 96374; 96375; J1200; J1815; J2920; J2930; Q9967

== ENCOUNTER 2016-09-17 17:55 | Inpatient (IN) | payer MEDICARE ==
[~2016-09-17 17:55] MED LIST: KETALAR IV ONE
[2016-09-17] MEDS ORDERED: KETALAR ONE (17:59)
[2016-09-17] MEDS ORDERED: PROVENTIL IH ONE (18:13)
[2016-09-17] MEDS ORDERED: NACL 0.9% 1000 ML 1,000 ML IV ONE (18:13)
[2016-09-17] MEDS ORDERED: ATROVENT IH ONE (18:13)
[2016-09-17] MEDS ORDERED: MAGNESIUM SULFATE 2GM/50ML 2 GM/50 ML BAG IV ONE (18:13)
--- NOTE | 2016-09-17 18:15 | Emergency Department Report ---
ED General Adult HPI - General Chief complaint: Dyspnea/Respdistress Stated complaint: ALTERED MENTAL STATUS Time Seen by Provider: 09/17/16 18:06 Source: EMS (verbal report received from EMS.ems notes not available at time of chart dictation), RN notes reviewed, old records reviewed Mode of arrival: Stretcher Limitations: Altered Mental Status - History of Present Illness Initial comments: This is a 80-year-old male. I have evaluated him in the past. Please see my note from 08/09/2016 for the full details of the patient's past medical history. The patient is brought to the hospital by EMS today for altered mental status. They report that he was found sitting in a corner. He reports normal fingerstick. EMS verbally reported the patient was hypoxic in the field, and was altered. They report normal fingerstick. Upon arrival to the ER, patient is altered, combative, moving 4 extremities, and hypoxic. He is given ketamine 50 mg, started on BiPAP therapy, and improved. He is found to have wheezing rales and rhonchi in the bilateral upper and lower lung bases, x-ray of the chest and was treated hyperinflated lungs, and an ABG did not demonstrate hypercapnic or hypoxemic respiratory failure. He was found to be somewhat acidotic with a decreased PaCO2, and decreased serum bicarbonate, suggestive of mixed picture acidosis. Patient's family is not available at this time, patient himself is sedated on BiPAP, protecting his airway at this time, saturating well, in no further distress. -: unknown Severity scale (0 -10): 0 Quality: constant Improves with: other (per hpi) Worsens with: other (per hpi) Associated Symptoms: confusion, shortness of breath, weakness - Related Data Home Medications Medication Instructions Recorded Confirmed Last Taken Coumadin 5 mg PO QHS 08/10/16 09/17/16 08/09/16 Amoxicillin/K Clav Tab [Augmentin 1 tab PO Q12HR 09/17/16 09/17/16 Unknown 875 mg] Dexamethasone 6 mg PO DAILY 09/17/16 09/17/16 Unknown Lisinopril/Hydrochlorothiazide 1 tab PO QDAY 09/17/16 09/17/16 Unknown [Zestoretic 20-25 mg] traMADol [Ultram] 50 mg PO BID PRN 09/17/16 09/17/16 Unknown Previous Rx's Medication Instructions Recorded Last Taken Type Ipratropium/Albuter (Nf) 2 puff IH QID #1 inha 08/12/16 Unknown Rx [Combivent Inhaler] Allergies Allergy/AdvReac Type Severity Reaction Status Date / Time iodine Allergy Shortness Verified 09/09/15 21:37 of Breath shellfish derived Allergy Shortness Verified 10/31/15 02:03 of Breath ED Review of Systems ROS: Stated complaint: ALTERED MENTAL STATUS Other details as noted in HPI Comment: Unobtainable due to pts medical conditions ED Past Medical Hx - Past Medical History Hx Hypertension: Yes Hx Diabetes: Yes Hx Arthritis: Yes Hx Asthma: Yes Hx COPD: Yes Hx HIV: No Additional medical history: left foot dvt - Surgical History Hx Appendectomy: Yes Additional Surgical History: Total hip replacement and surgeries x 19 (10/31/15: currently has residual infections from most recent hip replacement performed in 2014) - Social History Smoking Status: Unknown if ever smoked - Medications Home Medications: Home Medications Medication Instructions Recorded Confirmed Last Taken Type Coumadin 5 mg PO QHS 08/10/16 09/17/16 08/09/16 History Ipratropium/Albuter (Nf) 2 puff IH QID #1 inha 08/12/16 09/17/16 Unknown Rx [Combivent Inhaler] Amoxicillin/K Clav Tab [Augmentin 1 tab PO Q12HR 09/17/16 09/17/16 Unknown History 875 mg] Dexamethasone 6 mg PO DAILY 09/17/16 09/17/16 Unknown History Lisinopril/Hydrochlorothiazide 1 tab PO QDAY 09/17/16 09/17/16 Unknown History [Zestoretic 20-25 mg] traMADol [Ultram] 50 mg PO BID PRN 09/17/16 09/17/16 Unknown History ED Physical Exam - General Limitations: Altered Mental Status General appearance: in distress - Head Head exam: Present: atraumatic, normocephalic - Eye Eye exam: Present: normal appearance - ENT ENT exam: Present: mucous membranes dry - Neck Neck exam: Present: normal inspection, full ROM - Respiratory Respiratory exam: Present: respiratory distress, wheezes, rales, rhonchi, accessory muscle use - Cardiovascular Cardiovascular Exam: Present: normal rhythm, tachycardia, normal heart sounds. Absent: systolic murmur, diastolic murmur, rubs, gallop - GI/Abdominal GI/Abdominal exam: Present: soft, normal bowel sounds. Absent: distended, tenderness, guarding, rebound, rigid, pulsatile mass - Rectal Rectal exam: Present: normal inspection - exam: Present: normal inspection External exam: Present: normal external exam - Extremities Exam Extremities exam: Present: normal inspection, normal capillary refill. Absent: calf tenderness - Back Exam Back exam: Present: normal inspection, full ROM. Absent: tenderness, CVA tenderness (R), CVA tenderness (L), muscle spasm, paraspinal tenderness, vertebral tenderness - Neurological Exam Neurological exam: Present: altered, other (patient is moving 4 extremities spontaneously to initiation/induction with ketamine.) - Psychiatric Psychiatric exam: Present: anxious - Skin Skin exam: Present: warm, dry, intact, normal color. Absent: rash ED Course Vital Signs 09/17/16 09/17/16 09/17/16 18:04 18:21 18:22 Temperature 99.2 F Pulse Rate 132 H 120 H Pulse Rate [ 119 H Bilateral Upper Lobe] Respiratory 24 35 H Rate Respiratory 32 H Rate [Bilateral Upper Lobe] Blood Pressure 125/67 148/55 O2 Sat by Pulse 100 98 Oximetry 09/17/16 09/17/16 09/17/16 18:30 18:35 19:01 Temperature Pulse Rate 119 H 109 H Pulse Rate [ 122 H Bilateral Upper Lobe] Respiratory 17 15 Rate Respiratory 34 H Rate [Bilateral Upper Lobe] Blood Pressure 147/63 150/72 O2 Sat by Pulse 100 100 Oximetry 09/17/16 09/17/16 09/17/16 19:31 19:59 20:00 Temperature Pulse Rate 122 H 149 H 138 H Pulse Rate [ Bilateral Upper Lobe] Respiratory 26 H 17 Rate Respiratory Rate [Bilateral Upper Lobe] Blood Pressure 140/113 154/69 168/73 O2 Sat by Pulse 100 98 Oximetry 09/17/16 09/17/16 09/17/16 20:30 22:03 22:30 Temperature Pulse Rate 137 H 120 H 128 H Pulse Rate [ Bilateral Upper Lobe] Respiratory 17 20 17 Rate Respiratory Rate [Bilateral Upper Lobe] Blood Pressure 171/76 174/71 149/62 O2 Sat by Pulse 98 100 100 Oximetry 09/17/16 09/17/16 09/17/16 22:59 23:00 23:30 Temperature Pulse Rate 110 H 118 H 112 H Pulse Rate [ Bilateral Upper Lobe] Respiratory 16 15 Rate Respiratory Rate [Bilateral Upper Lobe] Blood Pressure 129/67 144/69 117/55 O2 Sat by Pulse 100 98 100 Oximetry 09/17/16 09/18/16 09/18/16 23:48 00:00 00:30 Temperature Pulse Rate 108 H 108 H 99 H Pulse Rate [ Bilateral Upper Lobe] Respiratory 11 L 10 L Rate Respiratory Rate [Bilateral Upper Lobe] Blood Pressure 129/67 127/63 123/63 O2 Sat by Pulse 100 Oximetry 09/18/16 09/18/16 09/18/16 00:41 00:51 01:00 Temperature Pulse Rate 104 H 109 H 111 H Pulse Rate [ Bilateral Upper Lobe] Respiratory 8 L 12 12 Rate Respiratory Rate [Bilateral Upper Lobe] Blood Pressure 125/63 130/62 145/66 O2 Sat by Pulse 100 100 100 Oximetry 09/18/16 09/18/16 01:02 01:11 Temperature Pulse Rate 122 H Pulse Rate [ Bilateral Upper Lobe] Respiratory Rate Respiratory Rate [Bilateral Upper Lobe] Blood Pressure 129/67 145/66 O2 Sat by Pulse 100 100 Oximetry - Reevaluation(s) Reevaluation #1: 09/17/16 19:05 differential diagnosis: Stroke, intracranial injury, pneumonia, urinary tract infection, multifactorial respiratory failure, COPD exacerbation Assessment and plan: 80-year-old male with altered mental status, sedated on ketamine at this time, on BiPAP, currently protecting his airway. His airway reflexes are intact. The is due to the ketamine. He does not require intubation at this time. CT scan of the brain is pending. Laboratory studies and urinalysis are pending. I Reevaluation #2: 09/17/16 20:06 patient continued to desaturate, and was pulling off of his leads , and pulling himself off of the BiPAP. Therefore, given his altered mental status desaturation, inability to cooperate with his care, he is intubated with one attempt with no obvious complications and no difficulty. The case was presented to the Hospital physician, Dr. Baer, who accepts the patient to his service. Reevaluation #3: 09/17/16 20:18 labs suggest elevated respiratory rate, decreased bicarbonate, consistent with tachypnea mild myositis noted in elevated ck hyperkalemia noted ivf, ketamine infusion ordered, ceftriaxone ordered, kayexalate ordered Dr Engel to follow up on head ct - EJ/Peripheral Line Neck L Time Out Performed: Yes Indications: multiple IV sites needed Skin Cleansed in Sterile Fashion: Yes Size: 18 Dressing Placed: Tegaderm Patient Tolerated Procedure: well - Intubation Time Out Performed: Yes Sedative: Ketamine Mg Given: 150 Paralytic: Rocuronium Mg Given: 100 Laryngoscope: fiberoptic video scope Size: 4 Assist Device Used: fiberoptic device ET Tube Size: 8 Tube Secured Location: teeth Tube Placement Confirmation: visualized tube passing t Patient Tolerated Procedure: well Intubation Complications: none Additional Comments: Patient was induced with 150 mg of ketamine. He is placed on a nasal cannula at 15 L/m. He receives [id number] ventilation. He does not desaturate. He is paralyzed with rocuronium. The patient has video laryngoscopy performed by the physician day care assistant Joshua under my direct supervision. The cords are visualized, and a 8.0 endotracheal tube is passed with one attempt with no obvious complications or desaturation. The patient tolerated the procedure well. ED Medical Decision Making - Lab Data Result diagrams: 09/23/16 05:15 09/23/16 05:15 Vital Signs 09/17/16 09/17/16 09/17/16 18:04 18:21 18:22 Temperature 99.2 F Pulse Rate 132 H 120 H Pulse Rate [ 119 H Bilateral Upper Lobe] Respiratory 24 35 H Rate Respiratory 32 H Rate [Bilateral Upper Lobe] Blood Pressure 125/67 148/55 O2 Sat by Pulse 100 98 Oximetry 09/17/16 18:35 Temperature Pulse Rate Pulse Rate [ 122 H Bilateral Upper Lobe] Respiratory Rate Respiratory 34 H Rate [Bilateral Upper Lobe] Blood Pressure O2 Sat by Pulse Oximetry Lab Results 09/17/16 09/17/16 Range/Units 18:00 18:34 POC ABG pH 7.316 L (7.35-7.45) POC ABG pCO2 27.3 L (35-45) POC ABG pO2 140 H (80-105) POC ABG HCO3 13.9 POC ABG Total CO2 15 POC ABG O2 Sat 99 POC ABG Base Excess -12 FiO2 30 % POC Glucose 123 H (70-105) - EKG Data -: EKG Interpreted by Or Rate: tachycardia - EKG Data 09/17/16 19:07 sinus tachycardia, 127 bpm, atrial enlargement, not morphologically consistent with STEMI, poor r wave progression - Radiology Data Radiology results: report reviewed, image reviewed interpreted by me: xr chest: hyper inflated lungs xr chest s/p intubation shows hyperinflated lungs, ett and ogt in place nap otherwise ct brain negative Critical Care Time: Yes Critical care time in (mins) excluding proc time.: 45 Critical care attestation.: If time is entered above; I have spent that time in minutes in the direct care of this critically ill patient, excluding procedure time. Critical Care Time: Critical care time includes multiple bedside evaluations, interpretation of laboratory studies, radiology studies, time spent managing critically ill patient with respiratory failure requiring positive pressure ventilation. This does not include procedure time. ED Disposition Clinical Impression: Respiratory failure, Acute exacerbation of COPD with asthma Disposition: OP ADMIT IP TO THIS HOSP Is pt being admited?: Yes Condition: Critical
[2016-09-17] MEDS ORDERED: KETALAR IV ONE ×4 (18:25→20:04)
[2016-09-17 18:41] LABS: ISTAT Base Excess -12; ISTAT HCO3 13.9; ISTAT PCO2 27.3 (35-45); ISTAT PH 7.316 (7.35-7.45); ISTAT PO2 140 (80-105); ISTAT SO2 99; ISTAT TCO2 15
--- NOTE | 2016-09-17 18:48 | Admit Criteria Form ---
Admission Criteria Documentation: RESPIRATORY FAILURE GRG Clinical Indications for Admission to Inpatient Care (Place 'X' for any and all applicable criteria): Hospital admission is needed for appropriate care of the patient because of acute respiratory failure or insufficiency as indicated by ANY ONE of the following(1)(2)(3)(4)(5)(6)(7)(8): [ X]I. Mechanical ventilation needed (acute invasive or noninvasive) [ ]II. Severe ventilation deficit as indicated by ANY ONE of the following (9) [ ]a) Respiratory acidosis (pH less than 7.32 and partial pressure of carbon dioxide greater than 40 mm Hg (5.3 kPa)) [ ]b) Partial pressure of carbon dioxide greater than 44 mm Hg (5.9 kPa ) (new) [ ]c) Airflow measurements less than 25% of predicted (eg, peak expiratory flow rate less than 100 L/minute) [ ]d) Forced vital capacity less than 15 mL/kg of ideal body weight, or 50% decrease in vital capacity from baseline [ ]III. Noncardiac pulmonary edema not resolving with rapid emergency treatment (8) [ ]IV. Severe respiratory distress as indicated by ANY ONE of the following: [ ]a) Severe tachypnea (respiratory rate greater than 30, greater than 45 for 6-month-old, greater than 60 for ) [ ]b) Severe hypoxemia (partial pressure of oxygen less than 50 mm Hg ( 6.7 kPa) on greater than 50% oxygen or partial pressure of oxygen to FIO2 ratio less than 200) [ ]c) Mental status deterioration from respiratory disease [ ]V. Airway obstruction or inadequate protection [A](10)(11) The original [employer] content created by [employer] has been revised. The portions of the content which have been revised are identified through the use of italic text or in bold, and [employer] has neither reviewed nor approved the modified material. All other unmodified content is copyright [employer]. Please see references footnoted in the original [employer] edition 2016 Admission Criteria Met: Yes
[2016-09-17 19:10] LABS: Bilirubin,Urine NEG (Negative); Blood,Urine SM (Negative); Ketones,Urine NEG (Negative); Leukocyte Esterase,Urine NEG (Negative); Nitrite,Urine NEG (Negative); Protein,Urine <15 mg/dL mg/dL (Negative); Urobilinogen,Urine < 2.0 mg/dL (<2.0); WBC,Urine < 1.0 /HPF (0.0-6.0)
[2016-09-17 19:21] LABS: Basophils % (Auto) 0.2 % (0.0-1.8); Eosinophils % (Auto) 0.2 % (0.0-4.3); Hematocrit 30.8 % (35.5-45.6); Mean Corpuscular HGB Conc 32 % (32-34); Mean Corpuscular Volume 80 fl (84-94); Platelet Count 478 K/mm3 (140-440); Red Blood Count 3.86 M/mm3 (3.65-5.03); Red Cell Distribution Width 17.7 % (13.2-15.2); White Blood Count 10.4 K/mm3 (4.5-11.0)
[2016-09-17 19:33] LABS: INR 2.47 (0.87-1.13)
[2016-09-17 19:34] LABS: Mean Corpuscular Hemoglobin 26 pg (28-32); Partial Thromboplastin Time 41.8 Sec. (24.2-36.6)
[2016-09-17 19:45] LABS: Alanine Aminotransferase 12 units/L (7-56); Albumin/Globulin Ratio 1.3 %; Alkaline Phosphatase 126 units/L (35-129); Anion Gap 26 mmol/L; BUN/Creatinine Ratio 44.28; Blood Urea Nitrogen 62 mg/dL (9-20); Calcium 9.2 mg/dL (8.4-10.2); Carbon Dioxide 13 mmol/L (22-30); Chloride 102.4 mmol/L (98-107); Creatine Kinase 1631 units/L (55-170); Glucose 120 mg/dL (75-100); Potassium 5.7 mmol/L (3.6-5.0); Sodium 136 mmol/L (137-145); Total Protein 7.2 g/dL (6.3-8.2)
[2016-09-17] MEDS ORDERED: VASELINE LIP THERAPY TP PRN (19:59)
[2016-09-17] MEDS ORDERED: KIONEX PR ONE (19:59)
[2016-09-17] MEDS ORDERED: ARTIFICIAL TEARS OPHTH OINT OU PRN (19:59)
[2016-09-17] MEDS ORDERED: NACL 0.9% 500 ML IV SCH (20:00)
--- NOTE | 2016-09-17 20:01 | Emergency Department Report ---
Blank Doc - Documentation Documentation: EMERGENCY DEPARTMENT PROCEDURE NOTE: ENDOTRACHEAL INTUBATION DATE 09/17/[address] Currie DIAGNOSIS: hypoxia, COPD exacerbation PROCEDURE PERFORMED Endotracheal Intubation. ANESTHESIA Ketamine and Roccuronium used for induction/paralysis None. INDICATIONS FOR PROCEDURE: Hypoxia The patient is a 80year-old male s/p respiratory failure. The patient is in need of airway maintenance and protection. DESCRIPTION OF PROCEDURE IN DETAIL The patient was lying in the supine position. Preoxygenation via NC and BipPAp was provided for a minimum of 3 minutes. The patient had continuous cardiac as well as pulse oximetry monitoring during the procedure. Rapid sequence induction was provided by administration Ketamine and Roccuronium. A glidodoscope video laryngoscope was used to directly visualize the vocal cords. A 8mm endotracheal tube was visualized advancing between the cords to a level of 20 cm at the lips. The sylette was then removed and discarded. Tube placement was also noted by fogging in the tube, equal and bilateral breath sounds, no sounds over the epigastrium, and end-tidal colorimetric monitoring. The cuff was then inflated with 10ccs of air and the tube secured using a commercially available device. A good pulse oximetry wave form was seen on the monitor throughout the procedure. The patient was then connected to the ventilator on PRVC setting titrated by Dr. Currie and Resp Therapy. Peep setting at 5. 450L/min rate 18 A portable chest x-ray has been ordered for placement.
[2016-09-17] MEDS ORDERED: ZEMURON IV ONE (20:04)
[2016-09-17] MEDS ORDERED: ROCEPHIN/NS 1 GM/50 ML 1 GM/50 ML BAG IV ONE (20:22)
[2016-09-17] MEDS ORDERED: D50W (25GM) IV PRN (20:32)
--- NOTE | 2016-09-17 20:35 | History and Physical Report ---
History of Present Illness Date of examination: 09/17/16 Chief complaint: Altered mental status History of present illness: 80-year-old -[place] man with past medical history significant for COPD , diabetes, hypertension, DVT, PE was brought by EMS for altered mental status. He was found to be CT when the corner. Patient is intubated and on mechanical ventilation and history is obtained from chart review. While in the emergency department he was hypoxic and he was put on BiPAP and he started to get better, but the patient become agitated and took off the BiPAP so the ER doctor intubated him and started on mechanical ventilation. Patient's INR is 2.47 which is therapeutic. Past History Past Medical History: COPD, diabetes, hypertension Past Surgical History: Other (hip surgery) Social history: other (couldn't obtained because of altered mental status) Family history: other (couldn't obtained because of altered mental status) Medications and Allergies Allergies Allergy/AdvReac Type Severity Reaction Status Date / Time iodine Allergy Shortness Verified 09/09/15 21:37 of Breath shellfish derived Allergy Shortness Verified 10/31/15 02:03 of Breath Home Medications Medication Instructions Recorded Confirmed Last Taken Type Coumadin 5 mg PO QHS 08/10/16 09/17/16 08/09/16 History Ipratropium/Albuter (Nf) 2 puff IH QID #1 inha 08/12/16 09/17/16 Unknown Rx [Combivent Inhaler] Amoxicillin/K Clav Tab [Augmentin 1 tab PO Q12HR 09/17/16 09/17/16 Unknown History 875 mg] Dexamethasone 6 mg PO DAILY 09/17/16 09/17/16 Unknown History Lisinopril/Hydrochlorothiazide 1 tab PO QDAY 09/17/16 09/17/16 Unknown History [Zestoretic 20-25 mg] traMADol [Ultram] 50 mg PO BID PRN 09/17/16 09/17/16 Unknown History Active Meds: Active Medications Albuterol/Ipratropium (Duoneb *Not For Prn Use*) 1 ampul IH QIDRT MARTHA Hydrophilic Ointment (Vaseline Lip Therapy) 1 applic TP Q2HR PRN PRN Reason: Dry Lips Ketamine HCl 500 mg/ Sodium (Chloride) 505 mls @ 15 mls/hr IV DIRECT MARTHA Ceftriaxone Sodium (Rocephin/Ns 1 Gm/50 Ml) 1 gm in 50 mls @ 100 mls/hr IV ONCE ONE PRN Reason: Protocol Stop: 09/17/16 20:51 Levofloxacin/Dextrose (Levaquin 750mg/150ml) 750 mg in 150 mls @ 100 mls/hr IV Q24HR MARTHA PRN Reason: Protocol Methylprednisolone Sodium Succinate (Solu-Medrol) 80 mg IV Q8HR MARTHA Multi-Ingred Cream/Lotion/Oil/Oint (Artificial Tears Ophth Oint) 1 applic OU Q4HR PRN PRN Reason: Dry Eye(s) Sodium Chloride (Nacl 0.9% 500 Ml) 1 ml IV DIRECT MARTHA Review of Systems ROS unobtainable: due to mental status (couldn't obtained because of altered mental status) Exam - Physical Exam Narrative exam: Patient is intubated and on mechanical ventilation. The patient appeared well nourished and normally developed. Vital signs as documented. Head exam is unremarkable. No scleral icterus . Neck is without jugular venous distension, thyromegaly, or carotid bruits. Lungs are clear to auscultation. Cardiac exam reveals regular rate and Rhythm. First and second heart sounds normal. No murmurs, rubs or gallops. Abdominal exam reveals normal bowel sounds, no masses, no organomegaly and no aortic enlargement. Extremities are nonedematous and both femoral and pedal pulses are normal. 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 - Constitutional Vitals: Temp Pulse Resp BP Pulse Ox 99.2 F 122 H 34 H 148/55 98 09/17/16 18:04 09/17/16 18:35 09/17/16 18:35 09/17/16 18:22 09/17/16 18:22 Results - Labs CBC & Chem 7: 09/17/16 18:13 09/17/16 18:13 Labs: Laboratory Last Values WBC 10.4 K/mm3 (4.5-11.0) 09/17/16 18:13 RBC 3.86 M/mm3 (3.65-5.03) 09/17/16 18:13 Hgb 10.0 gm/dl (11.8-15.2) L 09/17/16 18:13 Hct 30.8 % (35.5-45.6) L 09/17/16 18:13 MCV 80 fl (84-94) L 09/17/16 18:13 MCH 26 pg (28-32) L 09/17/16 18:13 MCHC 32 % (32-34) 09/17/16 18:13 RDW 17.7 % (13.2-15.2) H 09/17/16 18:13 Plt Count 478 K/mm3 (140-440) H 09/17/16 18:13 Lymph % (Auto) 6.5 % (13.4-35.0) L 09/17/16 18:13 [place] % (Auto) 7.4 % (0.0-7.3) H 09/17/16 18:13 Eos % (Auto) 0.2 % (0.0-4.3) 09/17/16 18:13 Baso % (Auto) 0.2 % (0.0-1.8) 09/17/16 18:13 Lymph # 0.7 K/mm3 (1.2-5.4) L 09/17/16 18:13 [place] # 0.8 K/mm3 (0.0-0.8) 09/17/16 18:13 Eos # 0.0 K/mm3 (0.0-0.4) 09/17/16 18:13 Baso # 0.0 K/mm3 (0.0-0.1) 09/17/16 18:13 Seg Neutrophils % 85.7 % (40.0-70.0) H 09/17/16 18:13 Seg Neutrophils # 8.9 K/mm3 (1.8-7.7) H 09/17/16 18:13 PT 28.1 Sec. (12.2-14.9) H 09/17/16 18:13 INR 2.47 (0.87-1.13) H 09/17/16 18:13 APTT 41.8 Sec. (24.2-36.6) H 09/17/16 18:13 POC ABG pH 7.316 (7.35-7.45) L 09/17/16 18:34 POC ABG pCO2 27.3 (35-45) L 09/17/16 18:34 POC ABG pO2 140 (80-105) H 09/17/16 18:34 POC ABG HCO3 13.9 09/17/16 18:34 POC ABG Total CO2 15 09/17/16 18:34 POC ABG O2 Sat 99 09/17/16 18:34 POC ABG Base Excess -12 09/17/16 18:34 FiO2 30 % 09/17/16 18:34 Sodium 136 mmol/L (137-145) L 09/17/16 18:13 Potassium 5.7 mmol/L (3.6-5.0) H 09/17/16 18:13 Chloride 102.4 mmol/L (98-107) 09/17/16 18:13 Carbon Dioxide 13 mmol/L (22-30) L 09/17/16 18:13 Anion Gap 26 mmol/L 09/17/16 18:13 BUN 62 mg/dL (9-20) H 09/17/16 18:13 Creatinine 1.4 mg/dL (0.8-1.5) 09/17/16 18:13 Estimated GFR 59 ml/min 09/17/16 18:13 BUN/Creatinine Ratio 44.28 % 09/17/16 18:13 Glucose 120 mg/dL (75-100) H 09/17/16 18:13 POC Glucose 123 (70-105) H 09/17/16 18:00 Lactic Acid 1.30 mmol/L (0.7-2.0) 09/17/16 19:15 Calcium 9.2 mg/dL (8.4-10.2) 09/17/16 18:13 Total Bilirubin 0.40 mg/dL (0.1-1.2) 09/17/16 18:13 AST 32 units/L (5-40) 09/17/16 18:13 ALT 12 units/L (7-56) 09/17/16 18:13 Alkaline Phosphatase 126 units/L (35-129) 09/17/16 18:13 Ammonia 27.0 umol/L (25-60) 09/17/16 19:15 Total Creatine Kinase 1631 units/L (55-170) H 09/17/16 18:13 Troponin T < 0.010 ng/mL (0.00-0.029) 09/17/16 18:13 Total Protein 7.2 g/dL (6.3-8.2) 09/17/16 18:13 Albumin 4.0 g/dL (3.9-5) 09/17/16 18:13 Albumin/Globulin Ratio 1.3 % 09/17/16 18:13 TSH 0.519 mlU/mL (0.270-4.200) 09/17/16 19:15 Urine Color Yellow (Yellow) 09/17/16 18:43 Urine Turbidity Clear (Clear) 09/17/16 18:43 Urine pH 5.0 (5.0-7.0) 09/17/16 18:43 Ur Specific [place] 1.014 (1.003-1.030) 09/17/16 18:43 Urine Protein <15 mg/dl mg/dL (Negative) 09/17/16 18:43 Urine Glucose (UA) Neg mg/dL (Negative) 09/17/16 18:43 Urine Ketones Neg mg/dL (Negative) 09/17/16 18:43 Urine Blood Sm (Negative) 09/17/16 18:43 Urine Nitrite Neg (Negative) 09/17/16 18:43 Urine Bilirubin Neg (Negative) 09/17/16 18:43 Urine Urobilinogen < 2.0 mg/dL (<2.0) 09/17/16 18:43 Ur Leukocyte Esterase Neg (Negative) 09/17/16 18:43 Urine WBC (Auto) < 1.0 /HPF (0.0-6.0) 09/17/16 18:43 Urine RBC (Auto) 1.0 /HPF (0.0-6.0) 09/17/16 18:43 Salicylates < 0.3 mg/dL (2.8-20.0) L 09/17/16 19:15 Acetaminophen < 15.0 ug/mL (10.0-30.0) 09/17/16 18:13 Plasma/Serum Alcohol < 0.01 gm% (0-0.07) 09/17/16 19:15 - Imaging and Cardiology Chest x-ray: image reviewed (hyperinflated ) Assessment and Plan Assessment and plan: Acute hypoxic respiratory failure - Patient is intubated on mechanical ventilation COPD exacerbation - Patient is on Solu-Medrol, nebulizer treatment, Levaquin Diabetes mellitus type 2 - Patient is on low-dose sliding-scale insulin - Accu-Chek Hypertension - On when necessary hydralazine 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 The aggregate critical care time was [34] minutes. This time is in addition to time spent performing reported procedures but includes the following: [x] Data Review and interpretation [x] Patient assessment and monitoring of vital signs [x] Documentation [x] Medication orders and management Advance Directives: Yes VTE prophylaxis?: Chemical Plan of care discussed with patient/family: No
[2016-09-17] MEDS ORDERED: APRESOLINE IV PRN (20:49)
[2016-09-17] MEDS ORDERED: KETALAR IV SCH (21:00)
[2016-09-17] MEDS ORDERED: NACL 0.9% IV SCH (21:00)
[2016-09-17 21:09] LABS: ISTAT Base Excess -14; ISTAT HCO3 14.9; ISTAT PCO2 42.1 (35-45); ISTAT PH 7.156 (7.35-7.45); ISTAT PO2 357 (80-105); ISTAT SO2 100; ISTAT TCO2 16
[2016-09-17] MEDS ORDERED: SODIUM BICARBONATE PEDIATRIC ONE (21:09)
[2016-09-17] MEDS ORDERED: NOVOLOG SUB-Q SCH (22:00)
[2016-09-17] MEDS ORDERED: COUMADIN 5 MG PO SCH (22:00)
[2016-09-17] MEDS: COUMADIN PO SCH (22:20)
--- NOTE | 2016-09-17 22:23 | Cat Scan Report ---
FINAL REPORT PROCEDURE: CT HEAD/BRAIN WO CON TECHNIQUE: Computerized tomography of the head was performed without contrast material. HISTORY: Altered mental status COMPARISON: 01/18/2016 FINDINGS: Skull and scalp: Scalp swelling right frontal head area. Portions of NG tube and endotracheal tube seen.. Paranasal sinuses: Fluid and thickening of the ethmoids. Hypoplastic left frontal sinus.. Ventricles and subarachnoid spaces: Normal. Cerebrum: No evidence of hemorrhage, acute infarction or mass . Cerebellum phong and brainstem: 7 x 9 millimeter low attenuated area right pontine area may reflect macro lacunar infarct or artifact, axial 18. Vasculature: No hyper dense MCA sign at this time.. Comments: Mild to moderate diffuse atrophy with mild periventricular microischemic change and central lacunar infarct disease. Questionable dural calcification or high attenuation left anterior frontal lobe region similar to prior study for but projecting differently given head positioning axial 30. IMPRESSION: No definite evidence of acute intracranial pathology. If symptoms and or concern persist consider followup MRI.
[2016-09-17] MEDS: LEVAQUIN 750MG/150ML 750 MG/150 ML BAG IV SCH (22:35)
[2016-09-17] MEDS ORDERED: SODIUM BICARBONATE IV ONE (23:23)
[2016-09-17] MEDS ORDERED: fentaNYL DRIP Premix 2,000 MCG/100 ML BAG IV ONE (23:26)
--- NOTE | 2016-09-17 23:45 | XRay Report ---
FINAL REPORT EXAM: XR ABDOMEN 1V AP HISTORY: ng tube placement confirmation TECHNIQUE: Supine abdomen PRIORS: None. FINDINGS: NG tube present. Distal end overlying the fundus of the stomach. There is mild gastric distention. In the visualized portion of the upper abdomen no acute abnormality identified. IMPRESSION: NG tube in satisfactory position
[2016-09-17] MEDS: fentaNYL DRIP Premix 2,000 MCG/100 ML BAG IV SCH (23:50)
[2016-09-18] MEDS: MIDAZOLAM 100 MG in NACL 0.9% 80 ML IV SCH (01:11)
[2016-09-18 01:14] LABS: ISTAT Base Excess -3; ISTAT HCO3 21.8; ISTAT PCO2 35.6 (35-45); ISTAT PH 7.396 (7.35-7.45); ISTAT PO2 147 (80-105); ISTAT SO2 99; ISTAT TCO2 23
[2016-09-18 03:44] LABS: Hematocrit 27.9 % (35.5-45.6); Hemoglobin 9.1 gm/dl (11.8-15.2); Mean Corpuscular HGB Conc 33 % (32-34); Mean Corpuscular Volume 78 fl (84-94); Platelet Count 434 K/mm3 (140-440); Red Blood Count 3.56 M/mm3 (3.65-5.03); White Blood Count 10.4 K/mm3 (4.5-11.0)
[2016-09-18 03:47] LABS: Mean Corpuscular Hemoglobin 26 pg (28-32)
[2016-09-18 03:58] LABS: INR 2.65 (0.87-1.13)
[2016-09-18 04:03] LABS: Blood Urea Nitrogen 55 mg/dL (9-20); Calcium 8.7 mg/dL (8.4-10.2); Carbon Dioxide 21 mmol/L (22-30); Chloride 104.3 mmol/L (98-107); Glucose 146 mg/dL (75-100); Sodium 142 mmol/L (137-145)
[2016-09-18 04:11] LABS: Anion Gap 22 mmol/L
[2016-09-18] MEDS: fentaNYL DRIP Premix 2,000 MCG/100 ML BAG IV SCH (05:43)
[2016-09-18] MEDS: DUONEB *Not for PRN Use IH SCH ×4 (07:20→21:55)
[2016-09-18 07:42] LABS: Anisocytosis 1+; Basophils % (Manual) 0 % (0.0-1.8); Blastocytes % (Manual) 0 %; Eosinophils % (Manual) 0 % (0.0-4.3); Poikilocytosis 1+
[2016-09-18 07:43] LABS: Acanthocytes Few; Diff Status Complete; Helmet Cells Rare; Platelet Estimate Cons; Tear Drop Cells Rare
--- NOTE | 2016-09-18 08:17 | XRay Report ---
AP chest x-ray. History: ET tube placement. Findings: The heart and lungs reveal no acute findings or interval changes. An endotracheal tube is in satisfactory position.
--- NOTE | 2016-09-18 08:18 | Consultation ---
History of Present Illness Consult date: 09/18/16 Requesting physician: TANGELA TAYLOR Reason for consult: COPD, other (Acute Hypoxemic Respiratory Failure on MVS; MICHAEL ) History of present illness: PULMONARY/CCM CONSULT NOTE (Full note dictated # [id number]) Please see dictated notes for full details Past History Past Medical History: COPD, diabetes, hypertension Past Surgical History: Other (hip surgery) Social history: other (couldn't obtained because of altered mental status) Family history: other (couldn't obtained because of altered mental status) Medications and Allergies Allergies Allergy/AdvReac Type Severity Reaction Status Date / Time iodine Allergy Shortness Verified 09/09/15 21:37 of Breath shellfish derived Allergy Shortness Verified 10/31/15 02:03 of Breath Home Medications Medication Instructions Recorded Confirmed Last Taken Type Coumadin 5 mg PO QHS 08/10/16 09/17/16 08/09/16 History Ipratropium/Albuter (Nf) 2 puff IH QID #1 inha 08/12/16 09/17/16 Unknown Rx [Combivent Inhaler] Amoxicillin/K Clav Tab [Augmentin 1 tab PO Q12HR 09/17/16 09/17/16 Unknown History 875 mg] Dexamethasone 6 mg PO DAILY 09/17/16 09/17/16 Unknown History Lisinopril/Hydrochlorothiazide 1 tab PO QDAY 09/17/16 09/17/16 Unknown History [Zestoretic 20-25 mg] traMADol [Ultram] 50 mg PO BID PRN 09/17/16 09/17/16 Unknown History Active Meds: Active Medications Albuterol/Ipratropium (Duoneb *Not For Prn Use*) 1 ampul IH QIDRT [facility] Last Admin: 09/18/16 07:20 Dose: 1 ampul Dextrose (D50w (25gm)) 50 ml IV PRN PRN PRN Reason: Hypoglycemia Famotidine (Pepcid) 20 mg IV DAILY [facility] Hydralazine HCl (Apresoline) 10 mg IV Q4H PRN PRN Reason: HTN SY=>160 Hydrochlorothiazide (Hctz) 25 mg PO QDAY [facility] Hydrophilic Ointment (Vaseline Lip Therapy) 1 applic TP Q2HR PRN PRN Reason: Dry Lips Levofloxacin/Dextrose (Levaquin 750mg/150ml) 750 mg in 150 mls @ 100 mls/hr IV Q48H MARTHA PRN Reason: Protocol Last Admin: 09/17/16 22:35 Dose: 100 mls/hr Fentanyl Citrate (Fentanyl Drip Premix) 2,000 mcg in 100 mls @ 2.608 mls/hr IV TITR MARTHA; 1 MCG/KG/HR PRN Reason: Protocol Last Admin: 09/18/16 05:43 Dose: 3 mcg/kg/hr, 7.824 mls/hr Midazolam HCl 100 mg/ Sodium (Chloride) 100 mls @ 2 mls/hr IV TITR MARTHA; 2 MG/HR PRN Reason: Protocol Last Admin: 09/18/16 01:11 Dose: 2 mg/hr, 2 mls/hr Insulin Aspart (Novolog) 0 units SUB-Q QHS MARTHA PRN Reason: Protocol Last Admin: 09/17/16 22:42 Dose: 2 units Lisinopril (Zestril) 20 mg PO QDAY [facility] Methylprednisolone Sodium Succinate (Solu-Medrol) 80 mg IV Q8H [facility] Last Admin: 09/18/16 02:34 Dose: 80 mg Multi-Ingred Cream/Lotion/Oil/Oint (Artificial Tears Ophth Oint) 1 applic OU Q4HR PRN PRN Reason: Dry Eye(s) Sodium Chloride (Nacl 0.9% 500 Ml) 1 ml IV DIRECT MARTHA Warfarin Sodium (Coumadin) 5 mg PO DAILY@1700 [facility] Last Admin: 09/17/16 22:20 Dose: 5 mg Physical Examination Vital signs: Vital Signs Temp Pulse Resp BP Pulse Ox 99.2 F 132 H 24 125/67 100 09/17/16 18:04 09/17/16 18:04 09/17/16 18:04 09/17/16 18:04 09/17/16 18:04 Results - Laboratory Findings CBC and BMP: 09/18/16 03:21 09/18/16 03:21 ABG POC ABG pH 7.396 (7.35-7.45) 09/18/16 01:02 POC ABG pCO2 35.6 (35-45) 09/18/16 01:02 POC ABG pO2 147 (80-105) H 09/18/16 01:02 POC ABG HCO3 21.8 09/18/16 01:02 POC ABG Total CO2 23 09/18/16 01:02 POC ABG O2 Sat 99 09/18/16 01:02 PT/INR, D-dimer PT 29.7 Sec. (12.2-14.9) H 09/18/16 03:21 INR 2.65 (0.87-1.13) H 09/18/16 03:21 Abnormal lab findings: Abnormal Labs 09/17/16 09/17/16 09/18/16 20:58 22:37 01:02 RBC Hgb Hct MCV MCH RDW Seg Neuts % (Manual) Lymphocytes % (Manual) Seg Neutrophils # Man Lymphocytes # (Manual) PT INR POC ABG pH 7.156 L POC ABG pO2 357 H 147 H Carbon Dioxide BUN Glucose POC Glucose 225 H 09/18/16 09/18/16 09/18/16 03:21 03:21 03:21 RBC 3.56 L Hgb 9.1 L Hct 27.9 L MCV 78 L MCH 26 L RDW 17.0 H Seg Neuts % (Manual) 98.0 H Lymphocytes % (Manual) 1.0 L Seg Neutrophils # Man 10.2 H Lymphocytes # (Manual) 0.1 L PT 29.7 H INR 2.65 H POC ABG pH POC ABG pO2 Carbon Dioxide 21 L D BUN 55 H Glucose 146 H POC Glucose
--- NOTE | 2016-09-18 08:18 | XRay Report ---
AP chest x-ray. History: Shortness of breath. Findings: The heart and lungs reveal no acute or significant abnormalities.
--- NOTE | 2016-09-18 08:33 | XRay Report ---
NECK SOFT TISSUE RADIOGRAPHS INDICATION: Bloody secretions. COMPARISON: None similar. FINDINGS: AP and crosstable lateral radiographs to evaluate neck soft tissues limited due to presence of endotracheal and esophagogastric tubes. Few extrinsic artifacts as well. No gross soft tissue abnormality though suspected. Edentulous jaw. Advanced multilevel cervical spondylosis. Osteopenia. Clear imaged lung apices. CONCLUSION: Findings, as above. Thank you for the opportunity to participate in this patient's care.
[2016-09-18] MEDS ORDERED: PEPCID IV SCH (10:00)
[2016-09-18] MEDS ORDERED: NON-FORMULARY (Lisinopril/Hydrochlorothiazide [Zestoretic 20-25 Mg] 1 TAB) PO SCH (10:00)
[2016-09-18] MEDS: ZESTRIL PO SCH (10:04)
[2016-09-18] MEDS: HCTZ PO SCH (10:04)
[2016-09-18] MEDS: NOVOLOG SUB-Q SCH ×3 (10:05→17:47)
[2016-09-18 10:41] LABS: Magnesium 2.9 mg/dL (1.7-2.3); Phosphorous 3.9 mg/dL (2.5-4.5)
--- NOTE | 2016-09-18 11:09 | Progress Note ---
Assessment and Plan Assessment and plan: Acute hypoxic respiratory failure - Patient is intubated on mechanical ventilation. Patient currently on fentanyl and Versed for sedation. Pulmonary consultation pending. 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 Hospitalist Physical - Constitutional Vitals: Temp Pulse Resp BP Pulse Ox 98 F 90 9 L 98/47 96 09/18/16 08:04 09/18/16 10:30 09/18/16 07:51 09/18/16 10:04 09/18/16 10:30 General appearance: Present: no acute distress, well-nourished - EENT Eyes: Present: PERRL, EOM intact ENT: hearing intact, clear oral mucosa, dentition normal - Neck Neck: Present: supple, normal ROM - Respiratory Respiratory effort: normal Respiratory: bilateral: CTA - Cardiovascular Rhythm: regular Heart Sounds: Present: S1 & S2. Absent: gallop, rub - Extremities Extremities: no ischemia, No edema, Full ROM - Abdominal General gastrointestinal: soft, non-tender, non-distended, normal bowel sounds - Integumentary Integumentary: Present: clear, warm, dry - Neurologic Neurologic: CNII-XII intact, moves all extremities Results - Labs CBC & Chem 7: 09/18/16 03:21 09/18/16 03:21 Labs: Laboratory Last Values WBC 10.4 K/mm3 (4.5-11.0) 09/18/16 03:21 RBC 3.56 M/mm3 (3.65-5.03) L 09/18/16 03:21 Hgb 9.1 gm/dl (11.8-15.2) L 09/18/16 03:21 Hct 27.9 % (35.5-45.6) L 09/18/16 03:21 MCV 78 fl (84-94) L 09/18/16 03:21 MCH 26 pg (28-32) L 09/18/16 03:21 MCHC 33 % (32-34) 09/18/16 03:21 RDW 17.0 % (13.2-15.2) H 09/18/16 03:21 Plt Count 434 K/mm3 (140-440) 09/18/16 03:21 Lymph % (Auto) 6.5 % (13.4-35.0) L 09/17/16 18:13 [place] % (Auto) 7.4 % (0.0-7.3) H 09/17/16 18:13 Eos % (Auto) 0.2 % (0.0-4.3) 09/17/16 18:13 Baso % (Auto) 0.2 % (0.0-1.8) 09/17/16 18:13 Lymph # 0.7 K/mm3 (1.2-5.4) L 09/17/16 18:13 [place] # 0.8 K/mm3 (0.0-0.8) 09/17/16 18:13 Eos # 0.0 K/mm3 (0.0-0.4) 09/17/16 18:13 Baso # 0.0 K/mm3 (0.0-0.1) 09/17/16 18:13 Add Manual Diff Complete 09/18/16 03:21 Total Counted 100 09/18/16 03:21 Seg Neutrophils % [employer] 09/18/16 03:21 Seg Neuts % (Manual) 98.0 % (40.0-70.0) H 09/18/16 03:21 Band Neutrophils % 0 % 09/18/16 03:21 Lymphocytes % (Manual) 1.0 % (13.4-35.0) L 09/18/16 03:21 Reactive Lymphs % (Man) 0 % 09/18/16 03:21 Monocytes % (Manual) 1.0 % (0.0-7.3) 09/18/16 03:21 Eosinophils % (Manual) 0 % (0.0-4.3) 09/18/16 03:21 Basophils % (Manual) 0 % (0.0-1.8) 09/18/16 03:21 Metamyelocytes % 0 % 09/18/16 03:21 Myelocytes % 0 % 09/18/16 03:21 Promyelocytes % 0 % 09/18/16 03:21 Blast Cells % 0 % 09/18/16 03:21 Nucleated RBC % Not Reportable 09/18/16 03:21 Seg Neutrophils # 8.9 K/mm3 (1.8-7.7) H 09/17/16 18:13 Seg Neutrophils # Man 10.2 K/mm3 (1.8-7.7) H 09/18/16 03:21 Band Neutrophils # 0.0 K/mm3 09/18/16 03:21 Lymphocytes # (Manual) 0.1 K/mm3 (1.2-5.4) L 09/18/16 03:21 Abs React Lymphs (Man) 0.0 K/mm3 09/18/16 03:21 Monocytes # (Manual) 0.1 K/mm3 (0.0-0.8) 09/18/16 03:21 Eosinophils # (Manual) 0.0 K/mm3 (0.0-0.4) 09/18/16 03:21 Basophils # (Manual) 0.0 K/mm3 (0.0-0.1) 09/18/16 03:21 Metamyelocytes # 0.0 K/mm3 09/18/16 03:21 Myelocytes # 0.0 K/mm3 09/18/16 03:21 Promyelocytes # 0.0 K/mm3 09/18/16 03:21 Blast Cells # 0.0 K/mm3 09/18/16 03:21 WBC Morphology Not Reportable 09/18/16 03:21 Hypersegmented Neuts Not Reportable 09/18/16 03:21 Hyposegmented Neuts Not Reportable 09/18/16 03:21 Hypogranular Neuts Not Reportable 09/18/16 03:21 Smudge Cells Not Reportable 09/18/16 03:21 Toxic Granulation Not Reportable 09/18/16 03:21 Toxic Vacuolation Not Reportable 09/18/16 03:21 Dohle Bodies Not Reportable 09/18/16 03:21 Pelger-Huet Anomaly Not Reportable 09/18/16 03:21 Yvonne Rods Not Reportable 09/18/16 03:21 Platelet Estimate Cons 09/18/16 03:21 Clumped Platelets Not Reportable 09/18/16 03:21 Plt Clumps, EDTA Not Reportable 09/18/16 03:21 Large Platelets Not Reportable 09/18/16 03:21 Giant Platelets Not Reportable 09/18/16 03:21 Platelet Satelliting Not Reportable 09/18/16 03:21 Plt Morphology Comment Not Reportable 09/18/16 03:21 RBC Morphology Not Reportable 09/18/16 03:21 Dimorphic RBCs Not Reportable 09/18/16 03:21 Polychromasia Not Reportable 09/18/16 03:21 Hypochromasia Not Reportable 09/18/16 03:21 Poikilocytosis 1+ 09/18/16 03:21 Anisocytosis 1+ 09/18/16 03:21 Microcytosis Not Reportable 09/18/16 03:21 Macrocytosis Not Reportable 09/18/16 03:21 Spherocytes Not Reportable 09/18/16 03:21 Pappenheimer Bodies Not Reportable 09/18/16 03:21 Sickle Cells Not Reportable 09/18/16 03:21 Target Cells Not Reportable 09/18/16 03:21 Tear Drop Cells Rare 09/18/16 03:21 Ovalocytes Not Reportable 09/18/16 03:21 Helmet Cells Rare 09/18/16 03:21 [place] Bodies Not Reportable 09/18/16 03:21 [place] Rings Not Reportable 09/18/16 03:21 [place] Cells Not Reportable 09/18/16 03:21 Bite Cells Not Reportable 09/18/16 03:21 Crenated Cell Not Reportable 09/18/16 03:21 Elliptocytes Not Reportable 09/18/16 03:21 Acanthocytes (Spur) Few 09/18/16 03:21 Rouleaux Not Reportable 09/18/16 03:21 Hemoglobin C Crystals Not Reportable 09/18/16 03:21 Schistocytes Not Reportable 09/18/16 03:21 Malaria parasites Not Reportable 09/18/16 03:21 [place] Bodies Not Reportable 09/18/16 03:21 Hem Pathologist Commnt No 09/18/16 03:21 PT 29.7 Sec. (12.2-14.9) H 09/18/16 03:21 INR 2.65 (0.87-1.13) H 09/18/16 03:21 APTT 41.8 Sec. (24.2-36.6) H 09/17/16 18:13 POC ABG pH 7.396 (7.35-7.45) 09/18/16 01:02 POC ABG pCO2 35.6 (35-45) 09/18/16 01:02 POC ABG pO2 147 (80-105) H 09/18/16 01:02 POC ABG HCO3 21.8 09/18/16 01:02 POC ABG Total CO2 23 09/18/16 01:02 POC ABG O2 Sat 99 09/18/16 01:02 POC ABG Base Excess -3 09/18/16 01:02 FiO2 40 % 09/18/16 01:02 Sodium 142 mmol/L (137-145) 09/18/16 03:21 Potassium 5.0 mmol/L (3.6-5.0) 09/18/16 03:21 Chloride 104.3 mmol/L (98-107) 09/18/16 03:21 Carbon Dioxide 21 mmol/L (22-30) L D 09/18/16 03:21 Anion Gap 22 mmol/L 09/18/16 03:21 BUN 55 mg/dL (9-20) H 09/18/16 03:21 Creatinine 1.3 mg/dL (0.8-1.5) 09/18/16 03:21 Estimated GFR > 60 ml/min 09/18/16 03:21 BUN/Creatinine Ratio 42.30 % 09/18/16 03:21 Glucose 146 mg/dL (75-100) H 09/18/16 03:21 POC Glucose 225 (70-105) H 09/17/16 22:37 Hemoglobin A1c 5.7 % (4-6) 09/17/16 18:13 Lactic Acid 1.30 mmol/L (0.7-2.0) 09/17/16 19:15 Calcium 8.7 mg/dL (8.4-10.2) 09/18/16 03:21 Phosphorus 3.90 mg/dL (2.5-4.5) 09/18/16 03:21 Magnesium 2.90 mg/dL (1.7-2.3) H 09/18/16 03:21 Total Bilirubin 0.40 mg/dL (0.1-1.2) 09/17/16 18:13 AST 32 units/L (5-40) 09/17/16 18:13 ALT 12 units/L (7-56) 09/17/16 18:13 Alkaline Phosphatase 126 units/L (35-129) 09/17/16 18:13 Ammonia 27.0 umol/L (25-60) 09/17/16 19:15 Total Creatine Kinase 1631 units/L (55-170) H 09/17/16 18:13 Troponin T < 0.010 ng/mL (0.00-0.029) 09/17/16 18:13 Total Protein 7.2 g/dL (6.3-8.2) 09/17/16 18:13 Albumin 4.0 g/dL (3.9-5) 09/17/16 18:13 Albumin/Globulin Ratio 1.3 % 09/17/16 18:13 Triglycerides 98 mg/dL (2-149) 09/17/16 18:13 Cholesterol 139 mg/dL (50-199) 09/17/16 18:13 LDL Cholesterol Direct 49 mg/dL (50-130) L 09/17/16 18:13 HDL Cholesterol 71 mg/dL (40-59) H 09/17/16 18:13 Cholesterol/HDL Ratio 1.95 % 09/17/16 18:13 TSH 0.519 mlU/mL (0.270-4.200) 09/17/16 19:15 Urine Color Yellow (Yellow) 09/17/16 18:43 Urine Turbidity Clear (Clear) 09/17/16 18:43 Urine pH 5.0 (5.0-7.0) 09/17/16 18:43 Ur Specific [place] 1.014 (1.003-1.030) 09/17/16 18:43 Urine Protein <15 mg/dl mg/dL (Negative) 09/17/16 18:43 Urine Glucose (UA) Neg mg/dL (Negative) 09/17/16 18:43 Urine Ketones Neg mg/dL (Negative) 09/17/16 18:43 Urine Blood Sm (Negative) 09/17/16 18:43 Urine Nitrite Neg (Negative) 09/17/16 18:43 Urine Bilirubin Neg (Negative) 09/17/16 18:43 Urine Urobilinogen < 2.0 mg/dL (<2.0) 09/17/16 18:43 Ur Leukocyte Esterase Neg (Negative) 09/17/16 18:43 Urine WBC (Auto) < 1.0 /HPF (0.0-6.0) 09/17/16 18:43 Urine RBC (Auto) 1.0 /HPF (0.0-6.0) 09/17/16 18:43 Salicylates < 0.3 mg/dL (2.8-20.0) L 09/17/16 19:15 Acetaminophen < 15.0 ug/mL (10.0-30.0) 09/17/16 18:13 Plasma/Serum Alcohol < 0.01 gm% (0-0.07) 09/17/16 19:15
[2016-09-18] MEDS: HALDOL IV PRN ×2 (11:30→17:28)
[2016-09-18] MEDS: Centrum Liq PO SCH (11:59)
[2016-09-18] MEDS ORDERED: PANCREAZE DR 10,500 UNIT FEEDTUBE PRN (12:03)
[2016-09-18] MEDS ORDERED: SODIUM BICARBONATE FEEDTUBE PRN (12:03)
[2016-09-18] MEDS ORDERED: SIMPLE SYRUP FEEDTUBE PRN ×2 (12:03)
[2016-09-18 16:46] LABS: C-Reactive Protein 9.3 mg/dL (0.00-1.30)
[2016-09-18] MEDS: COUMADIN PO SCH (17:27)
[2016-09-18] MEDS ORDERED: ZEMURON IV ONE (19:35)
[2016-09-18] MEDS ORDERED: KETALAR ONE (19:35)
[2016-09-19] MEDS: NOVOLOG SUB-Q SCH ×4 (01:59→18:21)
[2016-09-19] MEDS: fentaNYL DRIP Premix 2,000 MCG/100 ML BAG IV SCH ×2 (03:33→17:45)
[2016-09-19 04:46] LABS: Hematocrit 27.4 % (35.5-45.6); Mean Corpuscular HGB Conc 33 % (32-34); Mean Corpuscular Volume 78 fl (84-94); Platelet Count 390 K/mm3 (140-440); Red Blood Count 3.51 M/mm3 (3.65-5.03); Red Cell Distribution Width 17.1 % (13.2-15.2); White Blood Count 13.2 K/mm3 (4.5-11.0)
[2016-09-19 04:55] LABS: INR 3.89 (0.87-1.13)
[2016-09-19 05:04] LABS: Anion Gap 18 mmol/L; Blood Urea Nitrogen 48 mg/dL (9-20); Calcium 8.7 mg/dL (8.4-10.2); Carbon Dioxide 23 mmol/L (22-30); Glucose 206 mg/dL (75-100); Potassium 4.5 mmol/L (3.6-5.0); Sodium 144 mmol/L (137-145)
[2016-09-19 05:06] LABS: Mean Corpuscular Hemoglobin 26 pg (28-32)
--- NOTE | 2016-09-19 05:19 | Consultation ---
PULMONARY CRITICAL CARE CONSULT NOTE. CONSULTING PHYSICIAN: Dr. Currie. REASON FOR CONSULTATION: Acute respiratory failure, on mechanical ventilatory support. CHIEF COMPLAINT AND HISTORY OF PRESENT ILLNESS: The patient is a 80-year-old -Serbian male with past medical history significant amongst other things for a diagnosis of both of diabetes as well as COPD, came into the Emergency Room with altered mental status. He had been found sitting down in a corner. He was reported as being hypoxemic in the field. In the ER, he was moving all extremities. He was given some sedation. He had wheezing and rales bilaterally. He was initially placed on bilevel positive airway pressure ventilation therapy. It seems like the patient deteriorated somewhat while in the Emergency Room. He was not keeping the BiPAP mask on. Because of the altered mental status and the inability to tolerate BiPAP, he was intubated. We are asked to assist with his management. When I stopped by to see him, he was resting peacefully in bed. He had been agitated earlier and sedation had been resumed after his initial sedation . I do not have any history of emesis or overt aspiration. Now with regards to his tobacco use/abuse history, it is unknown. He also has a history of DVT in the past for which he was on anticoagulation. The above is as much of the history of presentation as I have. PAST MEDICAL HISTORY: Hypertension, diabetes, arthritis, COPD, left foot deep venous thrombosis. PAST SURGICAL HISTORY: He has had an appendectomy in the past. 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 MEDICATIONS: He was on at the time I stopped by to see him, according to the medication administration record included the following: DuoNeb treatments nebulized q.i.d., Pepcid 20 mg IV daily. Fentanyl was going at 2 mcg/kg/hour, hydralazine 10 mg IV q.4h. p.r.n. systolic blood pressure greater than 160, hydrochlorothiazide 25 mg p.o. daily, all p.o. meds via the feeding tube, insulin via sliding scale, Levaquin 750 mg IV q.48h. Lisinopril 20 mg p.o. daily, Solu-Medrol 80 mg IV q.8h. Versed drip was going at 3 mg per hour, Coumadin 5 mg p.o. daily. Artificial tears to reach eye q.4 hours p.r.n. dry eyes. ALLERGIES: IODINE AND SHELLFISH. Nature of this allergy is unknown. DIET: Thin gentleman, acute weight loss or gain history is unknown. FAMILY AND SOCIAL HISTORY: Apparently lives in the community. Alcohol, tobacco, or illicit drug use or abuse history unknown. REVIEW OF SYSTEMS: Unobtainable secondary to the patient's medical and mental condition. Since he has been here, no gross hematochezia or melena. No gross hematuria. No hematemesis. No bloody tracheal secretions. No witnessed seizures. Review of systems is otherwise unobtainable or as in the body of history above. PHYSICAL EXAMINATION: GENERAL: At presentation, he had a low grade fever. VITAL SIGNS: Temperature 99.2 degrees Fahrenheit, pulse was 132, respiratory rate was 24, blood pressure was 125/67, oxygen sats were 100%, inspired oxygen concentration was not recorded. HEAD, EYES, EARS, NOSE AND THROAT: Pupils were 1 mm, 1-2 mm at the most, very sluggishly reactive to light. Extraocular muscle movements were intact. NECK: Grossly, there were no palpable lymph nodes in the supraclavicular or submandibular lymph node chains. LUNGS: Auscultation of both lung kwong reveal bilateral rales, prolonged expiratory phase. No wheezing. HEART: Heart sounds 1 and 2 are heard. They were regular in rate and rhythm at the time of my evaluation. ABDOMEN: Soft, flat. Bowel sounds positive, nontender. EXTREMITIES: Without overt digital clubbing, cyanosis, or pedal edema. NEUROLOGIC: He was moving all extremities prior to his sedation. LABORATORY DATA: From my review are as follows: White cell count 10,400, hemoglobin 10.0, hematocrit 30.8, platelet count 478. INR 2.47. Arterial blood gas at presentation showed pH of 7.32, pCO2 of 27, pO2 of 140 that was on 30% FiO2. Admission sodium was 136, potassium 5.7, chloride 102, bicarbonate was 13, BUN was 62, creatinine was 1.4, glucose was 120. Hemoglobin A1c 5.7. Liver function tests essentially within normal limits. CPK was elevated at 1631. Troponin within normal limits. LDL cholesterol was 49. Urinalysis was negative for nitrites and leukocyte esterase. Tylenol, aspirin, and alcohol levels were all within expected limits. Potassium is at 5.0 now, BUN is down to 55. Microbiology study, a tracheal aspirate was sent, no growth to date. I have reviewed the chest x-ray post-intubation, there is an endotracheal tube in place, tip at the lower level of the clavicular heads. Increased interstitial markings bilaterally appear chronic. The film is slightly rotated to the right. No gross pneumothorax, no gross bony fracture. Cardiovascular silhouette appears within normal limits. A CT scan was also done of his head at presentation and it showed no definite acute intracranial abnormality. ASSESSMENT AND PLAN: We have an elderly gentleman coming in with hypoxemic respiratory failure, altered mental status, acute metabolic acidosis and ultimately intubated for airway protection. His pH did drop to about 7.16 on a nonrebreather. I believe that was prior to intubation. From a respiratory standpoint, we will keep him on full mechanical ventilator support in the short time. I will, however, reduce the sat rate to about 12 in preparation for beginning weaning. We will try and calm down over the Versed. If he gets agitated, we will try and control the agitation with Seroquel or some other antipsychotic medication that has minimal respiratory effects. The plan will be to begin weaning him right now. He is therapeutic on his anticoagulation. No need for pulmonary embolus workup. We will continue systemic steroids as ordered. I will reduce the dose a little bit. I will add long-acting bronchodilators and hold on inhaled corticosteroids. Aspiration precautions and other ventilator bundles will be addressed daily. Oxygen will be weaned to keep sats greater than or equal to about 92-94%, and hopefully, we can get to a point of extubation in the short term. From a cardiovascular standpoint, he is relatively hemodynamically stable, not on any vasopressors. Troponin was negative. I will trend the CPK level, I should say, but I doubt this is cardiac related. It may be related to his acute kidney injury though. We will follow him clinically otherwise. From a renal standpoint, I note that actually what I am assuming is an acute kidney injury. The numbers appear prerenal. His serum bicarbonate has improved at this point. We will continue gentle volume hydration. Inputs and outputs will be monitored. Electrolytes will be corrected as necessary. Just in case he is an alcoholic as that history is unknown, I will get magnesium and phosphorus levels and correct as necessary. I will begin a daily multivitamin in the short term. From a GI and nutritional standpoint, enteral nutrition will be the feeding modality of choice. A feeding tube will be placed. Aspiration precautions will be maintained and he is appropriately on GI prophylaxis. From an infectious disease standpoint, I really would have loved to have some blood cultures ordered. For now, we will go with the tracheal aspirate and continue the empiric Levaquin monotherapy. I will get a CRP level as a marker of the severity of the infection and I will trend that along with the lactic acid level as needed during this admission. Anti-infectious will ultimately be deescalated based on results of clinical and microbiologic data. From a PHOTO INTERN standpoint, the exam was grossly nonfocal. Neuro imaging is negative. We will follow him clinically. From a general and hospital healthcare maintenance standpoint, he is going to be on GI prophylaxis. He is fully anticoagulated. Flu and pneumonia vaccination will be per protocol. Thank you very much for the consult Dr. Currie and Dr. Baer. We will follow along and make further recommendations as picture progresses/becomes clearer. He is critically ill on life-sustaining interventions including mechanical ventilator support at high risk for further deterioration including . At this point, I have spent about 35 minutes of critical care time without overlap and excluding any procedural time that may be necessary. JOB# [id number] BELA/CHERELLE
[2016-09-19 05:36] LABS: ISTAT Base Excess -2; ISTAT HCO3 23.1; ISTAT PCO2 37.5 (35-45); ISTAT PH 7.399 (7.35-7.45); ISTAT PO2 125 (80-105); ISTAT SO2 99; ISTAT TCO2 24
[2016-09-19 07:16] LABS: Basophils % (Manual) 0 % (0.0-1.8); Blastocytes % (Manual) 0 %; Eosinophils % (Manual) 0 % (0.0-4.3)
[2016-09-19 07:17] LABS: Anisocytosis 1+; Elliptocytes Rare; Hypersegmented Neutrophils Few; Poikilocytosis Few; Tear Drop Cells Rare
[2016-09-19 07:18] LABS: Diff Status Complete; Large Platelets Rare; Platelet Estimate Consistent w Auto
[2016-09-19] MEDS: HALDOL IV PRN ×2 (07:52→22:43)
[2016-09-19] MEDS: DUONEB *Not for PRN Use IH SCH ×4 (08:40→20:34)
--- NOTE | 2016-09-19 08:43 | XRay Report ---
PORTABLE CHEST INDICATION: ET tube readjustment. COMPARISON: 2:42 AM earlier today. FINDINGS: Portable, frontal chest radiograph, 8:05 AM, 09/19/2016 demonstrates interval esophagogastric tube removal. Endotracheal tube tip approximately 3.3 cm above the foreign. Normal cardiomediastinal silhouette. Clear lungs. Intact bones. EKG leads and some other extrinsic artifacts. CONCLUSION: Interval esophagogastric tube removal, as described. Thank you for the opportunity to participate in this patient's care.
--- NOTE | 2016-09-19 08:44 | XRay Report ---
CHEST 1 VIEW INDICATION: Respiratory failure followup. COMPARISON: 09/17/2016. FINDINGS: Portable, frontal chest radiograph reveals stable cardiomediastinal silhouette, supporting devices, appearance of the lungs and osseous structures, providing for the difference in technique. CONCLUSION: No significant interval change. Thank you for the opportunity to participate in this patient's care.
[2016-09-19] MEDS: MIDAZOLAM 100 MG in NACL 0.9% 80 ML IV SCH (08:48)
[2016-09-19] MEDS: HCTZ PO SCH (09:54)
[2016-09-19] MEDS: ZESTRIL PO SCH (09:54)
[2016-09-19] MEDS: Centrum Liq PO SCH (09:54)
[2016-09-19] MEDS: LEVEMIR SUB-Q SCH (09:58)
[2016-09-19] MEDS ORDERED: PEPCID PO SCH (10:00)
--- NOTE | 2016-09-19 10:46 | Progress Note ---
Assessment and Plan - Patient Problems (1) Acute hypoxemic respiratory failure Current Visit: Yes Status: Acute Plan to address problem: - continue bronchodilators and pulmonary toilet - continue aspiration precautions / addressed VAP bundle - wean oxygen for O2 Sats > 92-94% - adjust anxiolytics/antipsychotics to aid weaning - continue empiric AB's therapy - consider VTE w/up - follow clinically (2) MICHAEL (acute kidney injury) Current Visit: No Status: Acute Plan to address problem: - appears pre-renal - continue volume resuscitation - folow I's & O's - follow electrolytes and correct as necessary (3) Acute exacerbation of COPD with asthma Current Visit: No Status: Acute Plan to address problem: - as for acute resp failure above - continue systemic steroids - consider adding LABA (4) Coumadin toxicity Current Visit: No Status: Acute Qualifiers: Encounter type: initial encounter Injury intent: accidental or unintentional Qualified Code(s): T45.511A - Poisoning by anticoagulants, accidental (unintentional), initial encounter Plan to address problem: - on hold - follow PT/INR - no gross bleeding (5) Diabetes Current Visit: No Status: Acute Qualifiers: Diabetes mellitus type: D Diabetes mellitus complication status: D Diabetes mellitus complication detail: D Diabetic retinopathy severity: D Proliferative retinopathy type: P Diabetes mellitus macular edema: D Diabetes mellitus care home insulin use: D Laterality: L Chronic kidney disease stage: C Plan to address problem: - continue SSI - introduce Detemir insulin (6) Syncope Current Visit: No Status: Acute Qualifiers: Syncope type: S Encounter type: E Plan to address problem: - may have been related to hypoxemia - consider VTE w/up (7) Discharge planning issues Current Visit: Yes Status: Acute Plan to address problem: - hopefully with adding seroquel and adjusting dose can get to a point he tolerates weaning ...he is critically ill on life sustaining interventions including MVS and at high risk for further deterioration including ....35' CCT today without overlap Subjective Date of service: 09/19/16 Principal diagnosis: Acute Hypoxemic Respiratory Failure on MVS; MICHAEL Interval history: Seen and examined at bedside; 24 hour events reviewed; nursing and respiratory care staff consulted; no adverse overnight events reported to me; remains on MVS ; again agitated during sedation holiday and we were unable to wean him; no emesis or overt aspiration and no gross bleeding Objective Vital Signs - 12hr 07/26/17 07/26/17 07/26/17 22:50 23:00 23:09 Temperature Pulse Rate 110 H 100 H 119 H Pulse Rate [ Anterior Bilateral] Respiratory 14 13 13 Rate Respiratory Rate [Anterior Bilateral] Blood Pressure 127/96 118/52 118/52 O2 Sat by Pulse 99 97 100 Oximetry 09/18/16 09/18/16 09/18/16 23:10 23:20 23:30 Temperature Pulse Rate 104 H 107 H 99 H Pulse Rate [ Anterior Bilateral] Respiratory 13 13 13 Rate Respiratory Rate [Anterior Bilateral] Blood Pressure 118/52 118/52 118/52 O2 Sat by Pulse 99 100 100 Oximetry 09/18/16 09/18/16 09/18/16 23:32 23:40 23:50 Temperature Pulse Rate 98 H 100 H 98 H Pulse Rate [ Anterior Bilateral] Respiratory 13 14 14 Rate Respiratory Rate [Anterior Bilateral] Blood Pressure 118/52 118/52 118/52 O2 Sat by Pulse 100 100 100 Oximetry 09/18/16 09/19/16 09/19/16 23:58 00:00 00:10 Temperature 98.0 F Pulse Rate 92 H 99 H Pulse Rate [ Anterior Bilateral] Respiratory 14 14 Rate Respiratory Rate [Anterior Bilateral] Blood Pressure 126/55 126/55 O2 Sat by Pulse 97 100 Oximetry 09/19/16 09/19/16 09/19/16 00:13 00:15 00:20 Temperature Pulse Rate 99 H 95 H Pulse Rate [ Anterior Bilateral] Respiratory 14 Rate Respiratory Rate [Anterior Bilateral] Blood Pressure 126/55 126/55 O2 Sat by Pulse 100 100 100 Oximetry 09/19/16 09/19/16 09/19/16 00:30 00:40 00:50 Temperature Pulse Rate 87 95 H 92 H Pulse Rate [ Anterior Bilateral] Respiratory 13 13 13 Rate Respiratory Rate [Anterior Bilateral] Blood Pressure 126/55 126/55 126/55 O2 Sat by Pulse 100 100 100 Oximetry 09/19/16 09/19/16 09/19/16 01:00 01:10 01:20 Temperature Pulse Rate 93 H 90 96 H Pulse Rate [ Anterior Bilateral] Respiratory 14 14 13 Rate Respiratory Rate [Anterior Bilateral] Blood Pressure 104/54 104/54 104/54 O2 Sat by Pulse 97 100 100 Oximetry 09/19/16 09/19/16 09/19/16 01:30 01:40 01:50 Temperature Pulse Rate 91 H 91 H 88 Pulse Rate [ Anterior Bilateral] Respiratory 14 14 13 Rate Respiratory Rate [Anterior Bilateral] Blood Pressure 104/54 104/54 104/54 O2 Sat by Pulse 100 100 100 Oximetry 09/19/16 09/19/16 09/19/16 02:00 02:10 02:20 Temperature Pulse Rate 87 84 89 Pulse Rate [ Anterior Bilateral] Respiratory 14 14 14 Rate Respiratory Rate [Anterior Bilateral] Blood Pressure 105/53 105/53 105/53 O2 Sat by Pulse 100 100 Oximetry 09/19/16 09/19/16 09/19/16 02:30 02:40 02:50 Temperature Pulse Rate 86 87 85 Pulse Rate [ Anterior Bilateral] Respiratory 14 10 L 10 L Rate Respiratory Rate [Anterior Bilateral] Blood Pressure 105/53 105/53 105/53 O2 Sat by Pulse 100 100 100 Oximetry 09/19/16 09/19/16 09/19/16 03:00 03:10 03:20 Temperature Pulse Rate 91 H 83 93 H Pulse Rate [ Anterior Bilateral] Respiratory 11 L 14 13 Rate Respiratory Rate [Anterior Bilateral] Blood Pressure 125/52 105/53 105/53 O2 Sat by Pulse 97 100 100 Oximetry 09/19/16 09/19/16 09/19/16 03:28 03:30 03:40 Temperature 97.9 F Pulse Rate 88 82 Pulse Rate [ Anterior Bilateral] Respiratory 13 13 Rate Respiratory Rate [Anterior Bilateral] Blood Pressure 105/53 105/53 O2 Sat by Pulse 100 99 Oximetry 09/19/16 09/19/16 09/19/16 03:50 04:00 04:10 Temperature Pulse Rate 78 90 94 H Pulse Rate [ Anterior Bilateral] Respiratory 13 15 16 Rate Respiratory Rate [Anterior Bilateral] Blood Pressure 105/53 110/54 110/54 O2 Sat by Pulse 100 100 100 Oximetry 09/19/16 09/19/16 09/19/16 04:20 04:30 04:40 Temperature Pulse Rate 98 H 84 93 H Pulse Rate [ Anterior Bilateral] Respiratory 12 9 L 13 Rate Respiratory Rate [Anterior Bilateral] Blood Pressure 110/54 110/54 110/54 O2 Sat by Pulse 100 100 99 Oximetry 09/19/16 09/19/16 09/19/16 04:50 05:00 05:10 Temperature Pulse Rate 88 119 H 98 H Pulse Rate [ Anterior Bilateral] Respiratory 13 14 14 Rate Respiratory Rate [Anterior Bilateral] Blood Pressure 110/54 110/54 126/58 O2 Sat by Pulse 99 98 100 Oximetry 09/19/16 09/19/16 09/19/16 05:20 05:30 05:40 Temperature Pulse Rate 94 H 98 H 86 Pulse Rate [ Anterior Bilateral] Respiratory 12 12 13 Rate Respiratory Rate [Anterior Bilateral] Blood Pressure 126/58 126/58 126/58 O2 Sat by Pulse 100 100 99 Oximetry 09/19/16 09/19/16 09/19/16 05:50 06:00 06:10 Temperature Pulse Rate 90 97 H 123 H Pulse Rate [ Anterior Bilateral] Respiratory 13 14 15 Rate Respiratory Rate [Anterior Bilateral] Blood Pressure 126/58 136/61 136/61 O2 Sat by Pulse 100 98 99 Oximetry 09/19/16 09/19/16 09/19/16 06:20 06:30 06:40 Temperature Pulse Rate 116 H 120 H 101 H Pulse Rate [ Anterior Bilateral] Respiratory 16 15 14 Rate Respiratory Rate [Anterior Bilateral] Blood Pressure 136/61 136/61 136/61 O2 Sat by Pulse 100 100 100 Oximetry 09/19/16 09/19/16 09/19/16 06:50 07:00 07:10 Temperature Pulse Rate 97 H 92 H 133 H Pulse Rate [ Anterior Bilateral] Respiratory 14 13 20 Rate Respiratory Rate [Anterior Bilateral] Blood Pressure 136/61 142/63 142/63 O2 Sat by Pulse 100 98 100 Oximetry 09/19/16 09/19/16 09/19/16 07:20 07:30 07:40 Temperature Pulse Rate 120 H 137 H 135 H Pulse Rate [ Anterior Bilateral] Respiratory 18 24 27 H Rate Respiratory Rate [Anterior Bilateral] Blood Pressure 142/63 142/63 142/63 O2 Sat by Pulse 100 99 97 Oximetry 09/19/16 09/19/16 09/19/16 07:50 08:00 08:10 Temperature 97.7 F Pulse Rate 126 H 119 H 112 H Pulse Rate [ Anterior Bilateral] Respiratory 17 17 14 Rate Respiratory Rate [Anterior Bilateral] Blood Pressure 142/63 147/72 147/72 O2 Sat by Pulse 99 96 98 Oximetry 09/19/16 09/19/16 09/19/16 08:20 08:30 08:35 Temperature Pulse Rate 106 H 101 H 100 H Pulse Rate [ Anterior Bilateral] Respiratory 13 13 Rate Respiratory Rate [Anterior Bilateral] Blood Pressure 147/72 147/72 147/72 O2 Sat by Pulse 99 99 99 Oximetry 09/19/16 09/19/16 09/19/16 08:40 08:50 08:55 Temperature Pulse Rate 101 H 96 H Pulse Rate [ 100 H 99 H Anterior Bilateral] Respiratory 14 14 Rate Respiratory 14 15 Rate [Anterior Bilateral] Blood Pressure 147/72 147/72 O2 Sat by Pulse 98 99 Oximetry 09/19/16 09/19/16 09/19/16 09:00 09:10 09:20 Temperature Pulse Rate 95 H 89 87 Pulse Rate [ Anterior Bilateral] Respiratory 10 L 13 14 Rate Respiratory Rate [Anterior Bilateral] Blood Pressure 118/55 118/55 118/55 O2 Sat by Pulse 96 99 99 Oximetry Constitutional: no acute distress, appears uncomfortable, other (sedated) Eyes: non-icteric ENT: oropharynx moist Neck: supple, no lymphadenopathy Effort: mildly labored Ascultation: Bilateral: diminished breath sounds, rales Cardiovascular: regular rate and rhythm Gastrointestinal: normoactive bowel sounds, soft, non-tender, non-distended Integumentary: normal Extremities: no cyanosis, no edema, pulses normal, no ischemia or petechiae Neurologic: unable to assess Psychiatric: other (sedated) CBC and BMP: 09/20/16 05:03 09/20/16 05:03 ABG, PT/INR, D-dimer: ABG POC ABG pH 7.399 (7.35-7.45) 09/19/16 04:40 POC ABG pCO2 37.5 (35-45) 09/19/16 04:40 POC ABG pO2 125 (80-105) H 09/19/16 04:40 POC ABG HCO3 23.1 09/19/16 04:40 POC ABG Total CO2 24 09/19/16 04:40 POC ABG O2 Sat 99 09/19/16 04:40 PT/INR, D-dimer PT 40.3 Sec. (12.2-14.9) H 09/19/16 04:19 INR 3.89 (0.87-1.13) H 09/19/16 04:19 Abnormal lab findings: Abnormal Labs 09/17/16 09/17/16 09/18/16 20:58 22:37 01:02 WBC RBC Hgb Hct MCV MCH RDW Seg Neuts % (Manual) Lymphocytes % (Manual) Seg Neutrophils # Man Lymphocytes # (Manual) PT INR POC ABG pH 7.156 L POC ABG pO2 357 H 147 H Chloride Carbon Dioxide BUN Glucose POC Glucose 225 H Magnesium C-Reactive Protein 09/18/16 09/18/16 09/18/16 03:21 03:21 03:21 WBC RBC 3.56 L Hgb 9.1 L Hct 27.9 L MCV 78 L MCH 26 L RDW 17.0 H Seg Neuts % (Manual) 98.0 H Lymphocytes % (Manual) 1.0 L Seg Neutrophils # Man 10.2 H Lymphocytes # (Manual) 0.1 L PT 29.7 H INR 2.65 H POC ABG pH POC ABG pO2 Chloride Carbon Dioxide 21 L D BUN 55 H Glucose 146 H POC Glucose Magnesium C-Reactive Protein 09/18/16 09/18/16 09/18/16 03:21 12:17 17:37 WBC RBC Hgb Hct MCV MCH RDW Seg Neuts % (Manual) Lymphocytes % (Manual) Seg Neutrophils # Man Lymphocytes # (Manual) PT INR POC ABG pH POC ABG pO2 Chloride Carbon Dioxide BUN Glucose POC Glucose 206 H 189 H Magnesium 2.90 H C-Reactive Protein 9.30 H 09/18/16 09/19/16 09/19/16 23:23 04:19 04:19 WBC 13.2 H RBC 3.51 L Hgb 9.0 L Hct 27.4 L MCV 78 L MCH 26 L RDW 17.1 H Seg Neuts % (Manual) 86.0 H Lymphocytes % (Manual) 9.0 L Seg Neutrophils # Man 11.4 H Lymphocytes # (Manual) PT 40.3 H INR 3.89 H POC ABG pH POC ABG pO2 Chloride Carbon Dioxide BUN Glucose POC Glucose 191 H Magnesium C-Reactive Protein 09/19/16 09/19/16 09/19/16 04:19 04:40 05:22 WBC RBC Hgb Hct MCV MCH RDW Seg Neuts % (Manual) Lymphocytes % (Manual) Seg Neutrophils # Man Lymphocytes # (Manual) PT INR POC ABG pH POC ABG pO2 125 H Chloride 108.0 H Carbon Dioxide BUN 48 H Glucose 206 H POC Glucose 222 H Magnesium C-Reactive Protein Chest x-ray: image reviewed
--- NOTE | 2016-09-19 12:16 | Progress Note ---
Assessment and Plan Assessment and plan: Acute hypoxic respiratory failure - Patient is intubated on mechanical ventilation. Patient currently on fentanyl and Versed for sedation. Pulmonary following. Continue weaning protocols. 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 DVT prophylaxis -Patient is on Coumadin History Interval history: Patient remains intubated and sedated on fentanyl and Versed. Hospitalist Physical - Constitutional Vitals: Temp Pulse Resp BP Pulse Ox 97.7 F 84 11 L 115/54 100 09/19/16 08:00 09/19/16 12:09 09/19/16 12:09 09/19/16 11:43 09/19/16 11:43 General appearance: Present: no acute distress, well-nourished - EENT Eyes: Present: PERRL, EOM intact ENT: hearing intact, clear oral mucosa, dentition normal - Neck Neck: Present: supple, normal ROM - Respiratory Respiratory effort: normal Respiratory: bilateral: CTA - Cardiovascular Rhythm: regular Heart Sounds: Present: S1 & S2. Absent: gallop, rub - Extremities Extremities: no ischemia, No edema, Full ROM - Abdominal General gastrointestinal: soft, non-tender, non-distended, normal bowel sounds - Integumentary Integumentary: Present: clear, warm, dry - Neurologic Neurologic: CNII-XII intact, moves all extremities Results - Labs CBC & Chem 7: 09/19/16 04:19 09/19/16 04:19 Labs: Laboratory Last Values WBC 13.2 K/mm3 (4.5-11.0) H 09/19/16 04:19 RBC 3.51 M/mm3 (3.65-5.03) L 09/19/16 04:19 Hgb 9.0 gm/dl (11.8-15.2) L 09/19/16 04:19 Hct 27.4 % (35.5-45.6) L 09/19/16 04:19 MCV 78 fl (84-94) L 09/19/16 04:19 MCH 26 pg (28-32) L 09/19/16 04:19 MCHC 33 % (32-34) 09/19/16 04:19 RDW 17.1 % (13.2-15.2) H 09/19/16 04:19 Plt Count 390 K/mm3 (140-440) 09/19/16 04:19 Lymph % (Auto) 6.5 % (13.4-35.0) L 09/17/16 18:13 Gem % (Auto) 7.4 % (0.0-7.3) H 09/17/16 18:13 Eos % (Auto) 0.2 % (0.0-4.3) 09/17/16 18:13 Baso % (Auto) 0.2 % (0.0-1.8) 09/17/16 18:13 Lymph # 0.7 K/mm3 (1.2-5.4) L 09/17/16 18:13 Gem # 0.8 K/mm3 (0.0-0.8) 09/17/16 18:13 Eos # 0.0 K/mm3 (0.0-0.4) 09/17/16 18:13 Baso # 0.0 K/mm3 (0.0-0.1) 09/17/16 18:13 Add Manual Diff Complete 09/19/16 04:19 Total Counted 100 09/19/16 04:19 Seg Neutrophils % Voice Data Communications Engineer 09/19/16 04:19 Seg Neuts % (Manual) 86.0 % (40.0-70.0) H 09/19/16 04:19 Band Neutrophils % 2.0 % 09/19/16 04:19 Lymphocytes % (Manual) 9.0 % (13.4-35.0) L 09/19/16 04:19 Reactive Lymphs % (Man) 0 % 09/19/16 04:19 Monocytes % (Manual) 3.0 % (0.0-7.3) 09/19/16 04:19 Eosinophils % (Manual) 0 % (0.0-4.3) 09/19/16 04:19 Basophils % (Manual) 0 % (0.0-1.8) 09/19/16 04:19 Metamyelocytes % 0 % 09/19/16 04:19 Myelocytes % 0 % 09/19/16 04:19 Promyelocytes % 0 % 09/19/16 04:19 Blast Cells % 0 % 09/19/16 04:19 Nucleated RBC % Not Reportable 09/19/16 04:19 Seg Neutrophils # 8.9 K/mm3 (1.8-7.7) H 09/17/16 18:13 Seg Neutrophils # Man 11.4 K/mm3 (1.8-7.7) H 09/19/16 04:19 Band Neutrophils # 0.3 K/mm3 09/19/16 04:19 Lymphocytes # (Manual) 1.2 K/mm3 (1.2-5.4) 09/19/16 04:19 Abs React Lymphs (Man) 0.0 K/mm3 09/19/16 04:19 Monocytes # (Manual) 0.4 K/mm3 (0.0-0.8) 09/19/16 04:19 Eosinophils # (Manual) 0.0 K/mm3 (0.0-0.4) 09/19/16 04:19 Basophils # (Manual) 0.0 K/mm3 (0.0-0.1) 09/19/16 04:19 Metamyelocytes # 0.0 K/mm3 09/19/16 04:19 Myelocytes # 0.0 K/mm3 09/19/16 04:19 Promyelocytes # 0.0 K/mm3 09/19/16 04:19 Blast Cells # 0.0 K/mm3 09/19/16 04:19 WBC Morphology Not Reportable 09/19/16 04:19 Hypersegmented Neuts Few 09/19/16 04:19 Hyposegmented Neuts Not Reportable 09/19/16 04:19 Hypogranular Neuts Not Reportable 09/19/16 04:19 Smudge Cells Not Reportable 09/19/16 04:19 Toxic Granulation Not Reportable 09/19/16 04:19 Toxic Vacuolation Not Reportable 09/19/16 04:19 Dohle Bodies Not Reportable 09/19/16 04:19 Pelger-Huet Anomaly Not Reportable 09/19/16 04:19 Yvonne Rods Not Reportable 09/19/16 04:19 Platelet Estimate Consistent w auto 09/19/16 04:19 Clumped Platelets Not Reportable 09/19/16 04:19 Plt Clumps, EDTA Not Reportable 09/19/16 04:19 Large Platelets Rare 09/19/16 04:19 Giant Platelets Not Reportable 09/19/16 04:19 Platelet Satelliting Not Reportable 09/19/16 04:19 Plt Morphology Comment Not Reportable 09/19/16 04:19 RBC Morphology Not Reportable 09/19/16 04:19 Dimorphic RBCs Not Reportable 09/19/16 04:19 Polychromasia Not Reportable 09/19/16 04:19 Hypochromasia Not Reportable 09/19/16 04:19 Poikilocytosis Few 09/19/16 04:19 Anisocytosis 1+ 09/19/16 04:19 Microcytosis Not Reportable 09/19/16 04:19 Macrocytosis Not Reportable 09/19/16 04:19 Spherocytes Not Reportable 09/19/16 04:19 Pappenheimer Bodies Not Reportable 09/19/16 04:19 Sickle Cells Not Reportable 09/19/16 04:19 Target Cells Not Reportable 09/19/16 04:19 Tear Drop Cells Rare 09/19/16 04:19 Ovalocytes Not Reportable 09/19/16 04:19 Helmet Cells Not Reportable 09/19/16 04:[address] Bodies Not Reportable 09/19/16 04:19 Beeler Rings Not Reportable 09/19/16 04:19 Erick Cells Not Reportable 09/19/16 04:19 Bite Cells Not Reportable 09/19/16 04:19 Crenated Cell Not Reportable 09/19/16 04:19 Elliptocytes Rare 09/19/16 04:19 Acanthocytes (Spur) Not Reportable 09/19/16 04:19 Rouleaux Not Reportable 09/19/16 04:19 Hemoglobin C Crystals Not Reportable 09/19/16 04:19 Schistocytes Not Reportable 09/19/16 04:19 Malaria parasites Not Reportable 09/19/16 04:19 Miguel Angel Bodies Not Reportable 09/19/16 04:19 Hem Pathologist Commnt No 09/19/16 04:19 PT 40.3 Sec. (12.2-14.9) H 09/19/16 04:19 INR 3.89 (0.87-1.13) H 09/19/16 04:19 APTT 41.8 Sec. (24.2-36.6) H 09/17/16 18:13 POC ABG pH 7.399 (7.35-7.45) 09/19/16 04:40 POC ABG pCO2 37.5 (35-45) 09/19/16 04:40 POC ABG pO2 125 (80-105) H 09/19/16 04:40 POC ABG HCO3 23.1 09/19/16 04:40 POC ABG Total CO2 24 09/19/16 04:40 POC ABG O2 Sat 99 09/19/16 04:40 POC ABG Base Excess -2 09/19/16 04:40 FiO2 30 % 09/19/16 04:40 Sodium 144 mmol/L (137-145) 09/19/16 04:19 Potassium 4.5 mmol/L (3.6-5.0) 09/19/16 04:19 Chloride 108.0 mmol/L (98-107) H 09/19/16 04:19 Carbon Dioxide 23 mmol/L (22-30) 09/19/16 04:19 Anion Gap 18 mmol/L 09/19/16 04:19 BUN 48 mg/dL (9-20) H 09/19/16 04:19 Creatinine 1.2 mg/dL (0.8-1.5) 09/19/16 04:19 Estimated GFR > 60 ml/min 09/19/16 04:19 BUN/Creatinine Ratio 40.00 % 09/19/16 04:19 Glucose 206 mg/dL (75-100) H 09/19/16 04:19 POC Glucose 222 (70-105) H 09/19/16 05:22 Hemoglobin A1c 5.7 % (4-6) 09/17/16 18:13 Lactic Acid 1.30 mmol/L (0.7-2.0) 09/17/16 19:15 Calcium 8.7 mg/dL (8.4-10.2) 09/19/16 04:19 Phosphorus 3.90 mg/dL (2.5-4.5) 09/18/16 03:21 Magnesium 2.90 mg/dL (1.7-2.3) H 09/18/16 03:21 Total Bilirubin 0.40 mg/dL (0.1-1.2) 09/17/16 18:13 AST 32 units/L (5-40) 09/17/16 18:13 ALT 12 units/L (7-56) 09/17/16 18:13 Alkaline Phosphatase 126 units/L (35-129) 09/17/16 18:13 Ammonia 27.0 umol/L (25-60) 09/17/16 19:15 Total Creatine Kinase 1631 units/L (55-170) H 09/17/16 18:13 Troponin T < 0.010 ng/mL (0.00-0.029) 09/17/16 18:13 C-Reactive Protein 9.30 mg/dL (0.00-1.30) H 09/18/16 03:21 Total Protein 7.2 g/dL (6.3-8.2) 09/17/16 18:13 Albumin 4.0 g/dL (3.9-5) 09/17/16 18:13 Albumin/Globulin Ratio 1.3 % 09/17/16 18:13 Triglycerides 98 mg/dL (2-149) 09/17/16 18:13 Cholesterol 139 mg/dL (50-199) 09/17/16 18:13 LDL Cholesterol Direct 49 mg/dL (50-130) L 09/17/16 18:13 HDL Cholesterol 71 mg/dL (40-59) H 09/17/16 18:13 Cholesterol/HDL Ratio 1.95 % 09/17/16 18:13 TSH 0.519 mlU/mL (0.270-4.200) 09/17/16 19:15 Urine Color Yellow (Yellow) 09/17/16 18:43 Urine Turbidity Clear (Clear) 09/17/16 18:43 Urine pH 5.0 (5.0-7.0) 09/17/16 18:43 Ur Specific Constable 1.014 (1.003-1.030) 09/17/16 18:43 Urine Protein <15 mg/dl mg/dL (Negative) 09/17/16 18:43 Urine Glucose (UA) Neg mg/dL (Negative) 09/17/16 18:43 Urine Ketones Neg mg/dL (Negative) 09/17/16 18:43 Urine Blood Sm (Negative) 09/17/16 18:43 Urine Nitrite Neg (Negative) 09/17/16 18:43 Urine Bilirubin Neg (Negative) 09/17/16 18:43 Urine Urobilinogen < 2.0 mg/dL (<2.0) 09/17/16 18:43 Ur Leukocyte Esterase Neg (Negative) 09/17/16 18:43 Urine WBC (Auto) < 1.0 /HPF (0.0-6.0) 09/17/16 18:43 Urine RBC (Auto) 1.0 /HPF (0.0-6.0) 09/17/16 18:43 Salicylates < 0.3 mg/dL (2.8-20.0) L 09/17/16 19:15 Acetaminophen < 15.0 ug/mL (10.0-30.0) 09/17/16 18:13 Plasma/Serum Alcohol < 0.01 gm% (0-0.07) 09/17/16 19:15
--- NOTE | 2016-09-19 12:42 | XRay Report ---
ABDOMEN RADIOGRAPH INDICATION: NG tube placement. COMPARISON: 09/17/2016 FINDINGS: Frontal abdominal radiograph demonstrates interval nasogastric tube replacement by a Dobbhoff tube, though similarly looped about the mid stomach with its tip pointing superiorly at the fundus. Nonobstructive bowel gas pattern. At least 3 nails project over the left iliac bone. EKG leads. Clear imaged lung bases. CONCLUSION: Dobbhoff tube now noted and few other findings, as detailed above. Thank you for the opportunity to participate in this patient's care.
[2016-09-19] MEDS ORDERED: DIPRIVAN 10 MG/ML 1,000 MG/100 ML BOTTLE IV SCH (13:00)
[2016-09-19] MEDS: LEVAQUIN 750MG/150ML 750 MG/150 ML BAG IV SCH (21:45)
[2016-09-19] MEDS: LOPRESSOR PO SCH (21:46)
[2016-09-19 22:33] LABS: ISTAT Base Excess -3; ISTAT HCO3 22.1; ISTAT PH 7.408 (7.35-7.45); ISTAT PO2 105 (80-105); ISTAT SO2 98; ISTAT TCO2 23
[2016-09-20] MEDS: NOVOLOG SUB-Q SCH ×3 (00:25→13:38)
[2016-09-20 05:51] LABS: Hematocrit 30.5 % (35.5-45.6); Hemoglobin 9.5 gm/dl (11.8-15.2); Mean Corpuscular HGB Conc 31 % (32-34); Mean Corpuscular Volume 81 fl (84-94); Platelet Count 385 K/mm3 (140-440); Red Blood Count 3.78 M/mm3 (3.65-5.03); Red Cell Distribution Width 17.6 % (13.2-15.2); White Blood Count 15.9 K/mm3 (4.5-11.0)
[2016-09-20 05:59] LABS: INR 4.87 (0.87-1.13); Mean Corpuscular Hemoglobin 25 pg (28-32)
[2016-09-20 06:07] LABS: Anion Gap 21 mmol/L; Blood Urea Nitrogen 45 mg/dL (9-20); Carbon Dioxide 22 mmol/L (22-30); Chloride 107.5 mmol/L (98-107); Glucose 129 mg/dL (75-100); Potassium 4.6 mmol/L (3.6-5.0); Sodium 146 mmol/L (137-145)
[2016-09-20 07:28] LABS: Basophils % (Manual) 0 % (0.0-1.8); Blastocytes % (Manual) 0 %; Eosinophils % (Manual) 0 % (0.0-4.3)
[2016-09-20 07:29] LABS: Anisocytosis 1+; Elliptocytes Few
[2016-09-20 07:30] LABS: Burr Cells Few; Hypersegmented Neutrophils Few; Poikilocytosis Few
[2016-09-20 07:31] LABS: Diff Status Complete
--- NOTE | 2016-09-20 07:41 | XRay Report ---
AP CHEST: HISTORY: Followup respiratory failure The endotracheal tube and feeding tube are in adequate position. Heart and mediastinal structures are unremarkable. The lungs are clear. No pleural effusion or pneumothorax. IMPRESSION: Unremarkable AP chest.
[2016-09-20] MEDS: DUONEB *Not for PRN Use IH SCH ×4 (07:58→20:01)
[2016-09-20] MEDS: HALDOL IV PRN (08:01)
--- NOTE | 2016-09-20 09:42 | Progress Note ---
Assessment and Plan (1) Acute hypoxemic respiratory failure Current Visit: Yes Status: Acute Plan to address problem: - continue bronchodilators and pulmonary toilet - continue aspiration precautions / addressed VAP bundle - continue wean oxygen for O2 Sats > 92-94% - adjust anxiolytics/antipsychotics (will begin seroquel taper) - continue empiric AB's therapy and follow cultures - will begin VTE w/up re: acute hypotensive episode - continue to follow clinically in the ICU (2) MICHAEL (acute kidney injury) Current Visit: No Status: Acute Plan to address problem: - appears pre-renal - continue volume resuscitation - follow I's & O's - follow electrolytes and correct as necessary (3) Acute exacerbation of COPD with asthma Current Visit: No Status: Acute Plan to address problem: - as for acute resp failure above - continue systemic steroids - will add brovana (4) Coumadin toxicity Current Visit: No Status: Acute Qualifiers: Encounter type: initial encounter Injury intent: accidental or unintentional Qualified Code(s): T45.511A - Poisoning by anticoagulants, accidental (unintentional), initial encounter Plan to address problem: - on hold - follow PT/INR - no gross bleeding (5) Diabetes Current Visit: No Status: Acute Qualifiers: Diabetes mellitus type: D Diabetes mellitus complication status: D Diabetes mellitus complication detail: D Diabetic retinopathy severity: D Proliferative retinopathy type: P Diabetes mellitus macular edema: D Diabetes mellitus nursing home insulin use: D Laterality: L Chronic kidney disease stage: C Plan to address problem: - continue SSI - introduce Detemir insulin (6) Syncope Current Visit: No Status: Acute Qualifiers: Syncope type: S Encounter type: E Plan to address problem: - may have been related to hypoxemia - acute hypotension bothersome - get 2D ECHO - get cardiac enzymes - get stat D-dimer +/- NM VQ scan - aggresive volume resuscitation - get serum lactate (7) Discharge planning issues Current Visit: Yes Status: Acute Plan to address problem: - hopefully with adding seroquel and adjusting dose can get to a point he tolerates weaning ...he remains critically ill on life sustaining interventions including MVS and at high risk for further deterioration including ....care plan discussed with outside room ....35' CCT today without overlap Subjective Date of service: 09/20/16 Principal diagnosis: Acute Hypoxemic Respiratory Failure on MVS; MICHAEL Interval history: Seen and examined at bedside; 24 hour events reviewed; nursing and respiratory care staff consulted; no adverse overnight events reported to me; did better with increased seroquel dosing; passed SBT and given a trial of extubation; denies acute chest pains or increased SOB; episode of unexplained hypotension without syncope post extubation though; no N/V/F/C Objective Vital Signs - 12hr 09/19/16 09/19/16 09/19/16 21:46 21:50 22:00 Temperature Pulse Rate 131 H 145 H 127 H Pulse Rate [ Anterior Bilateral Throughout] Pulse Rate [ 130 H From Monitor] Respiratory 23 11 L Rate Respiratory Rate [Anterior Bilateral Throughout] Blood Pressure 142/71 142/72 O2 Sat by Pulse 99 100 Oximetry 09/19/16 09/19/16 09/19/16 22:10 22:20 22:24 Temperature Pulse Rate 128 H 123 H 125 H Pulse Rate [ Anterior Bilateral Throughout] Pulse Rate [ From Monitor] Respiratory 12 12 12 Rate Respiratory Rate [Anterior Bilateral Throughout] Blood Pressure 142/72 142/72 142/72 O2 Sat by Pulse 100 100 100 Oximetry 09/19/16 09/19/16 09/19/16 22:30 22:40 22:50 Temperature Pulse Rate 156 H 126 H 124 H Pulse Rate [ Anterior Bilateral Throughout] Pulse Rate [ From Monitor] Respiratory 22 13 12 Rate Respiratory Rate [Anterior Bilateral Throughout] Blood Pressure 142/72 142/72 142/72 O2 Sat by Pulse 100 100 100 Oximetry 09/19/16 09/19/16 09/19/16 23:00 23:10 23:20 Temperature Pulse Rate 123 H 123 H 126 H Pulse Rate [ Anterior Bilateral Throughout] Pulse Rate [ From Monitor] Respiratory 11 L 11 L 13 Rate Respiratory Rate [Anterior Bilateral Throughout] Blood Pressure 131/70 131/70 131/70 O2 Sat by Pulse 98 99 100 Oximetry 09/19/16 09/19/16 09/19/16 23:30 23:40 23:50 Temperature Pulse Rate 118 H 114 H 112 H Pulse Rate [ Anterior Bilateral Throughout] Pulse Rate [ From Monitor] Respiratory 12 12 12 Rate Respiratory Rate [Anterior Bilateral Throughout] Blood Pressure 131/70 131/70 131/70 O2 Sat by Pulse 100 99 99 Oximetry 09/20/16 09/20/16 09/20/16 00:00 00:10 00:20 Temperature 97.6 F Pulse Rate 140 H 117 H 114 H Pulse Rate [ Anterior Bilateral Throughout] Pulse Rate [ 104 H From Monitor] Respiratory 17 12 11 L Rate Respiratory Rate [Anterior Bilateral Throughout] Blood Pressure 131/70 131/70 131/70 O2 Sat by Pulse 99 100 100 Oximetry 09/20/16 09/20/16 09/20/16 00:25 00:30 00:40 Temperature Pulse Rate 113 H 108 H 113 H Pulse Rate [ Anterior Bilateral Throughout] Pulse Rate [ From Monitor] Respiratory 12 11 L Rate Respiratory Rate [Anterior Bilateral Throughout] Blood Pressure 152/86 131/70 131/70 O2 Sat by Pulse 100 100 100 Oximetry 09/20/16 09/20/16 09/20/16 00:50 01:00 01:10 Temperature Pulse Rate 113 H 107 H 133 H Pulse Rate [ Anterior Bilateral Throughout] Pulse Rate [ From Monitor] Respiratory 12 10 L 14 Rate Respiratory Rate [Anterior Bilateral Throughout] Blood Pressure 131/70 138/71 138/71 O2 Sat by Pulse 100 100 Oximetry 09/20/16 09/20/16 09/20/16 01:20 01:30 01:40 Temperature Pulse Rate 112 H 108 H 119 H Pulse Rate [ Anterior Bilateral Throughout] Pulse Rate [ From Monitor] Respiratory 11 L 12 12 Rate Respiratory Rate [Anterior Bilateral Throughout] Blood Pressure 138/71 138/71 138/71 O2 Sat by Pulse 100 100 100 Oximetry 09/20/16 09/20/16 09/20/16 01:50 02:00 02:10 Temperature Pulse Rate 112 H 107 H 129 H Pulse Rate [ Anterior Bilateral Throughout] Pulse Rate [ From Monitor] Respiratory 11 L 11 L 15 Rate Respiratory Rate [Anterior Bilateral Throughout] Blood Pressure 138/71 143/72 143/72 O2 Sat by Pulse 100 100 Oximetry 09/20/16 09/20/16 09/20/16 02:20 02:30 02:40 Temperature Pulse Rate 111 H 113 H 108 H Pulse Rate [ Anterior Bilateral Throughout] Pulse Rate [ From Monitor] Respiratory 12 12 11 L Rate Respiratory Rate [Anterior Bilateral Throughout] Blood Pressure 143/72 143/72 143/72 O2 Sat by Pulse 100 100 99 Oximetry 09/20/16 09/20/16 09/20/16 02:50 03:00 03:10 Temperature Pulse Rate 109 H 107 H 115 H Pulse Rate [ Anterior Bilateral Throughout] Pulse Rate [ From Monitor] Respiratory 11 L 11 L 11 L Rate Respiratory Rate [Anterior Bilateral Throughout] Blood Pressure 143/72 131/69 131/69 O2 Sat by Pulse 99 100 Oximetry 09/20/16 09/20/16 09/20/16 03:20 03:30 03:40 Temperature 98.5 F Pulse Rate 111 H 106 H 113 H Pulse Rate [ Anterior Bilateral Throughout] Pulse Rate [ From Monitor] Respiratory 10 L 10 L 10 L Rate Respiratory Rate [Anterior Bilateral Throughout] Blood Pressure 131/69 131/69 131/69 O2 Sat by Pulse 100 100 100 Oximetry 09/20/16 09/20/16 09/20/16 03:50 04:00 04:10 Temperature Pulse Rate 110 H 104 H 115 H Pulse Rate [ Anterior Bilateral Throughout] Pulse Rate [ From Monitor] Respiratory 12 11 L 11 L Rate Respiratory Rate [Anterior Bilateral Throughout] Blood Pressure 131/69 131/71 131/71 O2 Sat by Pulse 100 98 100 Oximetry 09/20/16 09/20/16 09/20/16 04:20 04:30 04:40 Temperature Pulse Rate 104 H 106 H 111 H Pulse Rate [ Anterior Bilateral Throughout] Pulse Rate [ From Monitor] Respiratory 12 11 L 12 Rate Respiratory Rate [Anterior Bilateral Throughout] Blood Pressure 131/69 131/69 131/69 O2 Sat by Pulse 100 100 100 Oximetry 09/20/16 09/20/16 09/20/16 04:50 05:00 05:10 Temperature Pulse Rate 103 H 113 H 102 H Pulse Rate [ Anterior Bilateral Throughout] Pulse Rate [ From Monitor] Respiratory 11 L 12 9 L Rate Respiratory Rate [Anterior Bilateral Throughout] Blood Pressure 131/71 143/79 143/79 O2 Sat by Pulse 99 99 100 Oximetry 09/20/16 09/20/16 09/20/16 05:20 05:30 05:40 Temperature Pulse Rate 127 H 102 H 113 H Pulse Rate [ Anterior Bilateral Throughout] Pulse Rate [ From Monitor] Respiratory 15 10 L 14 Rate Respiratory Rate [Anterior Bilateral Throughout] Blood Pressure 143/79 143/79 143/79 O2 Sat by Pulse 100 100 100 Oximetry 09/20/16 09/20/16 09/20/16 07:51 08:10 08:11 Temperature Pulse Rate 110 H 103 H Pulse Rate [ 111 H 118 H Anterior Bilateral Throughout] Pulse Rate [ From Monitor] Respiratory 14 Rate Respiratory 16 15 Rate [Anterior Bilateral Throughout] Blood Pressure 148/77 158/83 O2 Sat by Pulse 100 99 Oximetry Constitutional: no acute distress, alert Eyes: non-icteric ENT: oropharynx moist Neck: supple, no lymphadenopathy Effort: mildly labored Ascultation: Bilateral: diminished breath sounds, rales (scant bilaterally) Cardiovascular: regular rate and rhythm, other (tachycardia in 120's to 130's) Gastrointestinal: normoactive bowel sounds, soft, non-tender, non-distended Integumentary: normal Extremities: no cyanosis, no edema, pulses normal, no ischemia or petechiae Neurologic: normal mental status, non-focal exam, pupils equal and round, motor strength normal and Psychiatric: mood appropriate, affect normal CBC and BMP: 09/20/16 05:03 09/20/16 05:03 ABG, PT/INR, D-dimer: ABG POC ABG pH 7.408 (7.35-7.45) 09/19/16 22:20 POC ABG pCO2 35.0 (35-45) 09/19/16 22:20 POC ABG pO2 105 (80-105) 09/19/16 22:20 POC ABG HCO3 22.1 09/19/16 22:20 POC ABG Total CO2 23 09/19/16 22:20 POC ABG O2 Sat 98 09/19/16 22:20 PT/INR, D-dimer PT 46.0 Sec. (12.2-14.9) H 09/20/16 05:03 INR 4.87 (0.87-1.13) H 09/20/16 05:03 Abnormal lab findings: Abnormal Labs 09/17/16 09/17/16 09/18/16 20:58 22:37 01:02 WBC RBC Hgb Hct MCV MCH MCHC RDW Seg Neuts % (Manual) Lymphocytes % (Manual) Seg Neutrophils # Man Lymphocytes # (Manual) PT INR POC ABG pH 7.156 L POC ABG pO2 357 H 147 H Sodium Chloride Carbon Dioxide BUN Glucose POC Glucose 225 H Magnesium C-Reactive Protein 09/18/16 09/18/16 09/18/16 03:21 03:21 03:21 WBC RBC 3.56 L Hgb 9.1 L Hct 27.9 L MCV 78 L MCH 26 L MCHC RDW 17.0 H Seg Neuts % (Manual) 98.0 H Lymphocytes % (Manual) 1.0 L Seg Neutrophils # Man 10.2 H Lymphocytes # (Manual) 0.1 L PT 29.7 H INR 2.65 H POC ABG pH POC ABG pO2 Sodium Chloride Carbon Dioxide 21 L D BUN 55 H Glucose 146 H POC Glucose Magnesium C-Reactive Protein 09/18/16 09/18/16 09/18/16 03:21 12:17 17:37 WBC RBC Hgb Hct MCV MCH MCHC RDW Seg Neuts % (Manual) Lymphocytes % (Manual) Seg Neutrophils # Man Lymphocytes # (Manual) PT INR POC ABG pH POC ABG pO2 Sodium Chloride Carbon Dioxide BUN Glucose POC Glucose 206 H 189 H Magnesium 2.90 H C-Reactive Protein 9.30 H 09/18/16 09/19/16 09/19/16 23:23 04:19 04:19 WBC 13.2 H RBC 3.51 L Hgb 9.0 L Hct 27.4 L MCV 78 L MCH 26 L MCHC RDW 17.1 H Seg Neuts % (Manual) 86.0 H Lymphocytes % (Manual) 9.0 L Seg Neutrophils # Man 11.4 H Lymphocytes # (Manual) PT 40.3 H INR 3.89 H POC ABG pH POC ABG pO2 Sodium Chloride Carbon Dioxide BUN Glucose POC Glucose 191 H Magnesium C-Reactive Protein 09/19/16 09/19/16 09/19/16 04:19 04:40 05:22 WBC RBC Hgb Hct MCV MCH MCHC RDW Seg Neuts % (Manual) Lymphocytes % (Manual) Seg Neutrophils # Man Lymphocytes # (Manual) PT INR POC ABG pH POC ABG pO2 125 H Sodium Chloride 108.0 H Carbon Dioxide BUN 48 H Glucose 206 H POC Glucose 222 H Magnesium C-Reactive Protein 09/19/16 09/19/16 09/19/16 11:59 17:58 23:43 WBC RBC Hgb Hct MCV MCH MCHC RDW Seg Neuts % (Manual) Lymphocytes % (Manual) Seg Neutrophils # Man Lymphocytes # (Manual) PT INR POC ABG pH POC ABG pO2 Sodium Chloride Carbon Dioxide BUN Glucose POC Glucose 162 H 201 H 236 H Magnesium C-Reactive Protein 09/20/16 09/20/16 09/20/16 04:04 05:03 05:03 WBC 15.9 H RBC Hgb 9.5 L Hct 30.5 L MCV 81 L MCH 25 L MCHC 31 L RDW 17.6 H Seg Neuts % (Manual) 94.0 H Lymphocytes % (Manual) 4.0 L Seg Neutrophils # Man 14.9 H Lymphocytes # (Manual) 0.6 L PT 46.0 H INR 4.87 H POC ABG pH POC ABG pO2 Sodium Chloride Carbon Dioxide BUN Glucose POC Glucose 129 H Magnesium C-Reactive Protein 09/20/16 05:03 WBC RBC Hgb Hct MCV MCH MCHC RDW Seg Neuts % (Manual) Lymphocytes % (Manual) Seg Neutrophils # Man Lymphocytes # (Manual) PT INR POC ABG pH POC ABG pO2 Sodium 146 H Chloride 107.5 H Carbon Dioxide BUN 45 H Glucose 129 H POC Glucose Magnesium C-Reactive Protein Chest x-ray: image reviewed
[2016-09-20] MEDS: LOPRESSOR PO SCH ×2 (11:04→23:03)
[2016-09-20] MEDS: HCTZ PO SCH (11:05)
[2016-09-20] MEDS: ZESTRIL PO SCH (11:06)
[2016-09-20] MEDS: Centrum Liq PO SCH (11:07)
[2016-09-20] MEDS: PEPCID PO SCH ×2 (11:13→23:03)
[2016-09-20] MEDS: LEVEMIR SUB-Q SCH (11:15)
[2016-09-20 11:43] LABS: ISTAT Base Excess 0; ISTAT HCO3 24.4; ISTAT PCO2 38.6 (35-45); ISTAT PH 7.409 (7.35-7.45); ISTAT PO2 101 (80-105); ISTAT SO2 98; ISTAT TCO2 26
--- NOTE | 2016-09-20 13:03 | Progress Note ---
Assessment and Plan Assessment and plan: Acute hypoxic respiratory failure - Patient is intubated on mechanical ventilation. Patient currently on fentanyl and Versed for sedation. Pulmonary following. Continue weaning protocols. Acute COPD exacerbation - Continue IV Solu-Medrol, nebulizer treatments and Levaquin Leukocytosis. Etiology likely secondary to IV steroids. 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 DVT prophylaxis -Patient is on Coumadin History Interval history: Patient remains intubated and sedated on fentanyl and Versed. Hospitalist Physical - Constitutional Vitals: Temp Pulse Resp BP Pulse Ox 97.3 F L 94 H 17 143/65 100 09/20/16 08:00 09/20/16 12:17 09/20/16 12:17 09/20/16 11:06 09/20/16 10:57 General appearance: Present: no acute distress, well-nourished - EENT Eyes: Present: PERRL, EOM intact ENT: hearing intact, clear oral mucosa, dentition normal - Neck Neck: Present: supple, normal ROM - Respiratory Respiratory effort: normal Respiratory: bilateral: diminished, rhonchi, wheezing - Cardiovascular Rhythm: regular Heart Sounds: Present: S1 & S2. Absent: gallop, rub - Extremities Extremities: no ischemia, No edema, Full ROM - Abdominal General gastrointestinal: soft, non-tender, non-distended, normal bowel sounds - Integumentary Integumentary: Present: clear, warm, dry - Neurologic Neurologic: CNII-XII intact, moves all extremities Results - Labs CBC & Chem 7: 09/20/16 05:03 09/20/16 05:03 Labs: Laboratory Last Values WBC 15.9 K/mm3 (4.5-11.0) H 09/20/16 05:03 RBC 3.78 M/mm3 (3.65-5.03) 09/20/16 05:03 Hgb 9.5 gm/dl (11.8-15.2) L 09/20/16 05:03 Hct 30.5 % (35.5-45.6) L 09/20/16 05:03 MCV 81 fl (84-94) L 09/20/16 05:03 MCH 25 pg (28-32) L 09/20/16 05:03 MCHC 31 % (32-34) L 09/20/16 05:03 RDW 17.6 % (13.2-15.2) H 09/20/16 05:03 Plt Count 385 K/mm3 (140-440) 09/20/16 05:03 Lymph % (Auto) 6.5 % (13.4-35.0) L 09/17/16 18:13 [place] % (Auto) 7.4 % (0.0-7.3) H 09/17/16 18:13 Eos % (Auto) 0.2 % (0.0-4.3) 09/17/16 18:13 Baso % (Auto) 0.2 % (0.0-1.8) 09/17/16 18:13 Lymph # 0.7 K/mm3 (1.2-5.4) L 09/17/16 18:13 [place] # 0.8 K/mm3 (0.0-0.8) 09/17/16 18:13 Eos # 0.0 K/mm3 (0.0-0.4) 09/17/16 18:13 Baso # 0.0 K/mm3 (0.0-0.1) 09/17/16 18:13 Add Manual Diff Complete 09/20/16 05:03 Total Counted 100 09/20/16 05:03 Seg Neutrophils % Investor Relations Manager 09/20/16 05:03 Seg Neuts % (Manual) 94.0 % (40.0-70.0) H 09/20/16 05:03 Band Neutrophils % 0 % 09/20/16 05:03 Lymphocytes % (Manual) 4.0 % (13.4-35.0) L 09/20/16 05:03 Reactive Lymphs % (Man) 0 % 09/20/16 05:03 Monocytes % (Manual) 2.0 % (0.0-7.3) 09/20/16 05:03 Eosinophils % (Manual) 0 % (0.0-4.3) 09/20/16 05:03 Basophils % (Manual) 0 % (0.0-1.8) 09/20/16 05:03 Metamyelocytes % 0 % 09/20/16 05:03 Myelocytes % 0 % 09/20/16 05:03 Promyelocytes % 0 % 09/20/16 05:03 Blast Cells % 0 % 09/20/16 05:03 Nucleated RBC % Not Reportable 09/20/16 05:03 Seg Neutrophils # 8.9 K/mm3 (1.8-7.7) H 09/17/16 18:13 Seg Neutrophils # Man 14.9 K/mm3 (1.8-7.7) H 09/20/16 05:03 Band Neutrophils # 0.0 K/mm3 09/20/16 05:03 Lymphocytes # (Manual) 0.6 K/mm3 (1.2-5.4) L 09/20/16 05:03 Abs React Lymphs (Man) 0.0 K/mm3 09/20/16 05:03 Monocytes # (Manual) 0.3 K/mm3 (0.0-0.8) 09/20/16 05:03 Eosinophils # (Manual) 0.0 K/mm3 (0.0-0.4) 09/20/16 05:03 Basophils # (Manual) 0.0 K/mm3 (0.0-0.1) 09/20/16 05:03 Metamyelocytes # 0.0 K/mm3 09/20/16 05:03 Myelocytes # 0.0 K/mm3 09/20/16 05:03 Promyelocytes # 0.0 K/mm3 09/20/16 05:03 Blast Cells # 0.0 K/mm3 09/20/16 05:03 WBC Morphology Not Reportable 09/20/16 05:03 Hypersegmented Neuts Few 09/20/16 05:03 Hyposegmented Neuts Not Reportable 09/20/16 05:03 Hypogranular Neuts Not Reportable 09/20/16 05:03 Smudge Cells Not Reportable 09/20/16 05:03 Toxic Granulation Not Reportable 09/20/16 05:03 Toxic Vacuolation Not Reportable 09/20/16 05:03 Dohle Bodies Not Reportable 09/20/16 05:03 Pelger-Huet Anomaly Not Reportable 09/20/16 05:03 Yvonne Rods Not Reportable 09/20/16 05:03 Platelet Estimate Appears normal 09/20/16 05:03 Clumped Platelets Not Reportable 09/20/16 05:03 Plt Clumps, EDTA Not Reportable 09/20/16 05:03 Large Platelets Not Reportable 09/20/16 05:03 Giant Platelets Not Reportable 09/20/16 05:03 Platelet Satelliting Not Reportable 09/20/16 05:03 Plt Morphology Comment Not Reportable 09/20/16 05:03 RBC Morphology Not Reportable 09/20/16 05:03 Dimorphic RBCs Not Reportable 09/20/16 05:03 Polychromasia Not Reportable 09/20/16 05:03 Hypochromasia Not Reportable 09/20/16 05:03 Poikilocytosis Few 09/20/16 05:03 Anisocytosis 1+ 09/20/16 05:03 Microcytosis Not Reportable 09/20/16 05:03 Macrocytosis Not Reportable 09/20/16 05:03 Spherocytes Not Reportable 09/20/16 05:03 Pappenheimer Bodies Not Reportable 09/20/16 05:03 Sickle Cells Not Reportable 09/20/16 05:03 Target Cells Not Reportable 09/20/16 05:03 Tear Drop Cells Not Reportable 09/20/16 05:03 Ovalocytes Not Reportable 09/20/16 05:03 Helmet Cells Not Reportable 09/20/16 05:03 [place] Bodies Not Reportable 09/20/16 05:03 [place] Rings Not Reportable 09/20/16 05:03 [place] Cells Few 09/20/16 05:03 Bite Cells Not Reportable 09/20/16 05:03 Crenated Cell Not Reportable 09/20/16 05:03 Elliptocytes Few 09/20/16 05:03 Acanthocytes (Spur) Not Reportable 09/20/16 05:03 Rouleaux Not Reportable 09/20/16 05:03 Hemoglobin C Crystals Not Reportable 09/20/16 05:03 Schistocytes Not Reportable 09/20/16 05:03 Malaria parasites Not Reportable 09/20/16 05:03 Miguel Angel Bodies Not Reportable 09/20/16 05:03 Hem Pathologist Commnt No 09/20/16 05:03 PT 46.0 Sec. (12.2-14.9) H 09/20/16 05:03 INR 4.87 (0.87-1.13) H 09/20/16 05:03 APTT 41.8 Sec. (24.2-36.6) H 09/17/16 18:13 POC ABG pH 7.409 (7.35-7.45) 09/20/16 11:08 POC ABG pCO2 38.6 (35-45) 09/20/16 11:08 POC ABG pO2 101 (80-105) 09/20/16 11:08 POC ABG HCO3 24.4 09/20/16 11:08 POC ABG Total CO2 26 09/20/16 11:08 POC ABG O2 Sat 98 09/20/16 11:08 POC ABG Base Excess 0 09/20/16 11:08 FiO2 30 % 09/20/16 11:08 Sodium 146 mmol/L (137-145) H 09/20/16 05:03 Potassium 4.6 mmol/L (3.6-5.0) 09/20/16 05:03 Chloride 107.5 mmol/L (98-107) H 09/20/16 05:03 Carbon Dioxide 22 mmol/L (22-30) 09/20/16 05:03 Anion Gap 21 mmol/L 09/20/16 05:03 BUN 45 mg/dL (9-20) H 09/20/16 05:03 Creatinine 1.1 mg/dL (0.8-1.5) 09/20/16 05:03 Estimated GFR > 60 ml/min 09/20/16 05:03 BUN/Creatinine Ratio 40.90 % 09/20/16 05:03 Glucose 129 mg/dL (75-100) H 09/20/16 05:03 POC Glucose 129 (70-105) H 09/20/16 04:04 Hemoglobin A1c 5.7 % (4-6) 09/17/16 18:13 Lactic Acid 1.30 mmol/L (0.7-2.0) 09/17/16 19:15 Calcium 9.0 mg/dL (8.4-10.2) 09/20/16 05:03 Phosphorus 3.90 mg/dL (2.5-4.5) 09/18/16 03:21 Magnesium 2.90 mg/dL (1.7-2.3) H 09/18/16 03:21 Total Bilirubin 0.40 mg/dL (0.1-1.2) 09/17/16 18:13 AST 32 units/L (5-40) 09/17/16 18:13 ALT 12 units/L (7-56) 09/17/16 18:13 Alkaline Phosphatase 126 units/L (35-129) 09/17/16 18:13 Ammonia 27.0 umol/L (25-60) 09/17/16 19:15 Total Creatine Kinase 1631 units/L (55-170) H 09/17/16 18:13 Troponin T < 0.010 ng/mL (0.00-0.029) 09/17/16 18:13 C-Reactive Protein 9.30 mg/dL (0.00-1.30) H 09/18/16 03:21 Total Protein 7.2 g/dL (6.3-8.2) 09/17/16 18:13 Albumin 4.0 g/dL (3.9-5) 09/17/16 18:13 Albumin/Globulin Ratio 1.3 % 09/17/16 18:13 Triglycerides 98 mg/dL (2-149) 09/17/16 18:13 Cholesterol 139 mg/dL (50-199) 09/17/16 18:13 LDL Cholesterol Direct 49 mg/dL (50-130) L 09/17/16 18:13 HDL Cholesterol 71 mg/dL (40-59) H 09/17/16 18:13 Cholesterol/HDL Ratio 1.95 % 09/17/16 18:13 TSH 0.519 mlU/mL (0.270-4.200) 09/17/16 19:15 Urine Color Yellow (Yellow) 09/17/16 18:43 Urine Turbidity Clear (Clear) 09/17/16 18:43 Urine pH 5.0 (5.0-7.0) 09/17/16 18:43 Ur Specific [place] 1.014 (1.003-1.030) 09/17/16 18:43 Urine Protein <15 mg/dl mg/dL (Negative) 09/17/16 18:43 Urine Glucose (UA) Neg mg/dL (Negative) 09/17/16 18:43 Urine Ketones Neg mg/dL (Negative) 09/17/16 18:43 Urine Blood Sm (Negative) 09/17/16 18:43 Urine Nitrite Neg (Negative) 09/17/16 18:43 Urine Bilirubin Neg (Negative) 09/17/16 18:43 Urine Urobilinogen < 2.0 mg/dL (<2.0) 09/17/16 18:43 Ur Leukocyte Esterase Neg (Negative) 09/17/16 18:43 Urine WBC (Auto) < 1.0 /HPF (0.0-6.0) 09/17/16 18:43 Urine RBC (Auto) 1.0 /HPF (0.0-6.0) 09/17/16 18:43 Salicylates < 0.3 mg/dL (2.8-20.0) L 09/17/16 19:15 Acetaminophen < 15.0 ug/mL (10.0-30.0) 09/17/16 18:13 Plasma/Serum Alcohol < 0.01 gm% (0-0.07) 09/17/16 19:15
--- NOTE | 2016-09-20 14:31 | XRay Report ---
ABDOMEN RADIOGRAPH INDICATION: Dobbhoff placement. COMPARISON: Yesterday. FINDINGS: Frontal abdominal radiograph, 1:53 PM, 09/20/2016 now demonstrates Dobbhoff tube looped in the proximal stomach with its tip directed inferiorly toward the right lower quadrant. Few lower abdominal air-containing small bowel loop caliber approximately 2.2 cm. Clear visualized lung bases. Mid to lower lumbar degenerative changes. EKG leads. CONCLUSION: Findings, as above. Thank you for the opportunity to participate in this patient's care.
[2016-09-20] MEDS ORDERED: NACL 0.9% 500 ML 500 ML IV ONE (16:34)
[2016-09-20 16:55] LABS: ISTAT Base Excess -1; ISTAT HCO3 23.8; ISTAT PCO2 37.1 (35-45); ISTAT PH 7.415 (7.35-7.45); ISTAT PO2 105 (80-105); ISTAT SO2 98; ISTAT TCO2 25
[2016-09-20] MEDS ORDERED: NACL 0.9% 1000 ML 1,000 ML IV ONE (17:43)
[2016-09-20] MEDS ORDERED: TYLENOL PO PRN (17:54)
[2016-09-20] MEDS ORDERED: MORPHINE IV PRN (17:54)
[2016-09-20] MEDS ORDERED: NACL 0.9% 1000 ML 1,000 ML IV SCH (18:00)
[2016-09-20] MEDS: PERCOCET 5/325 PO PRN (18:58)
[2016-09-20 18:59] LABS: Creatine Kinase 325 units/L (55-170); Creatine Kinase MB 2.2 ng/mL (0.0-4.0)
[2016-09-20] MEDS: LEVAQUIN 750MG/150ML 750 MG/150 ML BAG IV SCH (23:03)
[2016-09-20] MEDS: NACL 0.9% 1000 ML 1,000 ML IV SCH (23:05)
[2016-09-21] MEDS: NOVOLOG SUB-Q SCH ×4 (00:44→18:42)
[2016-09-21] MEDS: PERCOCET 5/325 PO PRN ×2 (01:46→22:03)
[2016-09-21 04:26] LABS: Hematocrit 28.2 % (35.5-45.6); Mean Corpuscular HGB Conc 32 % (32-34); Mean Corpuscular Volume 78 fl (84-94); Platelet Count 336 K/mm3 (140-440); Red Cell Distribution Width 17.3 % (13.2-15.2); White Blood Count 15.5 K/mm3 (4.5-11.0)
[2016-09-21 04:35] LABS: Mean Corpuscular Hemoglobin 25 pg (28-32)
[2016-09-21 04:36] LABS: INR 3.39 (0.87-1.13)
[2016-09-21 04:37] LABS: Anion Gap 22 mmol/L; BUN/Creatinine Ratio 46.66; Blood Urea Nitrogen 56 mg/dL (9-20); Carbon Dioxide 22 mmol/L (22-30); Chloride 104.1 mmol/L (98-107); Glucose 92 mg/dL (75-100); Potassium 4.7 mmol/L (3.6-5.0); Sodium 143 mmol/L (137-145)
[2016-09-21 06:15] LABS: Anisocytosis 1+; Basophils % (Manual) 0 % (0.0-1.8); Blastocytes % (Manual) 0 %; Diff Status Complete; Eosinophils % (Manual) 0 % (0.0-4.3); Hypochromasia 1+; Platelet Estimate Consistent w Auto
[2016-09-21] MEDS: DUONEB *Not for PRN Use IH SCH ×3 (08:18→20:21)
[2016-09-21] MEDS: NACL 0.9% 1000 ML 1,000 ML IV SCH (08:53)
[2016-09-21] MEDS: PEPCID PO SCH ×2 (09:40→22:03)
[2016-09-21] MEDS: HCTZ PO SCH (09:40)
[2016-09-21] MEDS: ZESTRIL PO SCH (09:41)
[2016-09-21] MEDS: Centrum Liq PO SCH (09:42)
[2016-09-21] MEDS: LEVEMIR SUB-Q SCH ×2 (10:35→15:18)
[2016-09-21] MEDS: LOPRESSOR PO SCH (10:49)
--- NOTE | 2016-09-21 12:15 | Progress Note ---
Assessment and Plan Assessment and plan: Acute hypoxic respiratory failure - Continue O2 and BiPAP as needed. Patient is extubated. Pulmonary following. Acute COPD exacerbation - Continue IV Solu-Medrol, nebulizer treatments and Levaquin Leukocytosis. Etiology likely secondary to IV steroids. 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 DVT prophylaxis -Patient is on Coumadin Disposition. Pt. is transferred floor History Interval history: Patient is now extubated and is doing well Hospitalist Physical - Constitutional Vitals: Temp Pulse Resp BP Pulse Ox 98.3 F 100 H 18 123/53 100 09/21/16 11:47 09/21/16 10:00 09/21/16 10:00 09/21/16 10:00 09/21/16 10:00 General appearance: Present: no acute distress, well-nourished - EENT Eyes: Present: PERRL, EOM intact ENT: hearing intact, clear oral mucosa, dentition normal - Neck Neck: Present: supple, normal ROM - Respiratory Respiratory effort: normal Respiratory: bilateral: diminished, rhonchi - Cardiovascular Rhythm: regular Heart Sounds: Present: S1 & S2. Absent: gallop, rub - Extremities Extremities: no ischemia, No edema, Full ROM - Abdominal General gastrointestinal: soft, non-tender, non-distended, normal bowel sounds - Integumentary Integumentary: Present: clear, warm, dry - Neurologic Neurologic: CNII-XII intact, moves all extremities Results - Labs CBC & Chem 7: 09/21/16 03:38 09/21/16 03:38 Labs: Laboratory Last Values WBC 15.5 K/mm3 (4.5-11.0) H 09/21/16 03:38 RBC 3.60 M/mm3 (3.65-5.03) L 09/21/16 03:38 Hgb 9.0 gm/dl (11.8-15.2) L 09/21/16 03:38 Hct 28.2 % (35.5-45.6) L 09/21/16 03:38 MCV 78 fl (84-94) L 09/21/16 03:38 MCH 25 pg (28-32) L 09/21/16 03:38 MCHC 32 % (32-34) 09/21/16 03:38 RDW 17.3 % (13.2-15.2) H 09/21/16 03:38 Plt Count 336 K/mm3 (140-440) 09/21/16 03:38 Lymph % (Auto) 6.5 % (13.4-35.0) L 09/17/16 18:13 [place] % (Auto) 7.4 % (0.0-7.3) H 09/17/16 18:13 Eos % (Auto) 0.2 % (0.0-4.3) 09/17/16 18:13 Baso % (Auto) 0.2 % (0.0-1.8) 09/17/16 18:13 Lymph # 0.7 K/mm3 (1.2-5.4) L 09/17/16 18:13 [place] # 0.8 K/mm3 (0.0-0.8) 09/17/16 18:13 Eos # 0.0 K/mm3 (0.0-0.4) 09/17/16 18:13 Baso # 0.0 K/mm3 (0.0-0.1) 09/17/16 18:13 Add Manual Diff Complete 09/21/16 03:38 Total Counted 100 09/21/16 03:38 Seg Neutrophils % Agronomy Supervisor 09/21/16 03:38 Seg Neuts % (Manual) 89.0 % (40.0-70.0) H 09/21/16 03:38 Band Neutrophils % 0 % 09/21/16 03:38 Lymphocytes % (Manual) 6.0 % (13.4-35.0) L 09/21/16 03:38 Reactive Lymphs % (Man) 0 % 09/21/16 03:38 Monocytes % (Manual) 5.0 % (0.0-7.3) 09/21/16 03:38 Eosinophils % (Manual) 0 % (0.0-4.3) 09/21/16 03:38 Basophils % (Manual) 0 % (0.0-1.8) 09/21/16 03:38 Metamyelocytes % 0 % 09/21/16 03:38 Myelocytes % 0 % 09/21/16 03:38 Promyelocytes % 0 % 09/21/16 03:38 Blast Cells % 0 % 09/21/16 03:38 Nucleated RBC % Not Reportable 09/21/16 03:38 Seg Neutrophils # 8.9 K/mm3 (1.8-7.7) H 09/17/16 18:13 Seg Neutrophils # Man 13.8 K/mm3 (1.8-7.7) H 09/21/16 03:38 Band Neutrophils # 0.0 K/mm3 09/21/16 03:38 Lymphocytes # (Manual) 0.9 K/mm3 (1.2-5.4) L 09/21/16 03:38 Abs React Lymphs (Man) 0.0 K/mm3 09/21/16 03:38 Monocytes # (Manual) 0.8 K/mm3 (0.0-0.8) 09/21/16 03:38 Eosinophils # (Manual) 0.0 K/mm3 (0.0-0.4) 09/21/16 03:38 Basophils # (Manual) 0.0 K/mm3 (0.0-0.1) 09/21/16 03:38 Metamyelocytes # 0.0 K/mm3 09/21/16 03:38 Myelocytes # 0.0 K/mm3 09/21/16 03:38 Promyelocytes # 0.0 K/mm3 09/21/16 03:38 Blast Cells # 0.0 K/mm3 09/21/16 03:38 WBC Morphology Not Reportable 09/21/16 03:38 Hypersegmented Neuts Not Reportable 09/21/16 03:38 Hyposegmented Neuts Not Reportable 09/21/16 03:38 Hypogranular Neuts Not Reportable 09/21/16 03:38 Smudge Cells Not Reportable 09/21/16 03:38 Toxic Granulation Not Reportable 09/21/16 03:38 Toxic Vacuolation Not Reportable 09/21/16 03:38 Dohle Bodies Not Reportable 09/21/16 03:38 Pelger-Huet Anomaly Not Reportable 09/21/16 03:38 Yvonne Rods Not Reportable 09/21/16 03:38 Platelet Estimate Consistent w auto 09/21/16 03:38 Clumped Platelets Not Reportable 09/21/16 03:38 Plt Clumps, EDTA Not Reportable 09/21/16 03:38 Large Platelets Not Reportable 09/21/16 03:38 Giant Platelets Not Reportable 09/21/16 03:38 Platelet Satelliting Not Reportable 09/21/16 03:38 Plt Morphology Comment Not Reportable 09/21/16 03:38 RBC Morphology Not Reportable 09/21/16 03:38 Dimorphic RBCs Not Reportable 09/21/16 03:38 Polychromasia Not Reportable 09/21/16 03:38 Hypochromasia 1+ 09/21/16 03:38 Poikilocytosis Not Reportable 09/21/16 03:38 Anisocytosis 1+ 09/21/16 03:38 Microcytosis Not Reportable 09/21/16 03:38 Macrocytosis Not Reportable 09/21/16 03:38 Spherocytes Not Reportable 09/21/16 03:38 Pappenheimer Bodies Not Reportable 09/21/16 03:38 Sickle Cells Not Reportable 09/21/16 03:38 Target Cells Not Reportable 09/21/16 03:38 Tear Drop Cells Not Reportable 09/21/16 03:38 Ovalocytes Not Reportable 09/21/16 03:38 Helmet Cells Not Reportable 09/21/16 03:38 [place] Bodies Not Reportable 09/21/16 03:38 [place] Rings Not Reportable 09/21/16 03:38 [place] Cells Not Reportable 09/21/16 03:38 Bite Cells Not Reportable 09/21/16 03:38 Crenated Cell Not Reportable 09/21/16 03:38 Elliptocytes Not Reportable 09/21/16 03:38 Acanthocytes (Spur) Not Reportable 09/21/16 03:38 Rouleaux Not Reportable 09/21/16 03:38 Hemoglobin C Crystals Not Reportable 09/21/16 03:38 Schistocytes Not Reportable 09/21/16 03:38 Malaria parasites Not Reportable 09/21/16 03:38 Miguel Angel Bodies Not Reportable 09/21/16 03:38 Hem Pathologist Commnt No 09/21/16 03:38 PT 34.5 Sec. (12.2-14.9) H 09/21/16 03:38 INR 3.39 (0.87-1.13) H 09/21/16 03:38 APTT 41.8 Sec. (24.2-36.6) H 09/17/16 18:13 D-Dimer 567.12 ng/mlDDU (0-234) H 09/20/16 18:11 POC ABG pH 7.415 (7.35-7.45) 09/20/16 16:47 POC ABG pCO2 37.1 (35-45) 09/20/16 16:47 POC ABG pO2 105 (80-105) 09/20/16 16:47 POC ABG HCO3 23.8 09/20/16 16:47 POC ABG Total CO2 25 09/20/16 16:47 POC ABG O2 Sat 98 09/20/16 16:47 POC ABG Base Excess -1 09/20/16 16:47 FiO2 28 % 09/20/16 16:47 Sodium 143 mmol/L (137-145) 09/21/16 03:38 Potassium 4.7 mmol/L (3.6-5.0) 09/21/16 03:38 Chloride 104.1 mmol/L (98-107) 09/21/16 03:38 Carbon Dioxide 22 mmol/L (22-30) 09/21/16 03:38 Anion Gap 22 mmol/L 09/21/16 03:38 BUN 56 mg/dL (9-20) H 09/21/16 03:38 Creatinine 1.2 mg/dL (0.8-1.5) 09/21/16 03:38 Estimated GFR > 60 ml/min 09/21/16 03:38 BUN/Creatinine Ratio 46.66 % 09/21/16 03:38 Glucose 92 mg/dL (75-100) 09/21/16 03:38 POC Glucose 184 (70-105) H 09/21/16 11:30 Hemoglobin A1c 5.7 % (4-6) 09/17/16 18:13 Lactic Acid 2.80 mmol/L (0.7-2.0) H* 09/20/16 18:11 Calcium 8.0 mg/dL (8.4-10.2) L 09/21/16 03:38 Phosphorus 3.90 mg/dL (2.5-4.5) 09/18/16 03:21 Magnesium 2.90 mg/dL (1.7-2.3) H 09/18/16 03:21 Total Bilirubin 0.40 mg/dL (0.1-1.2) 09/17/16 18:13 AST 32 units/L (5-40) 09/17/16 18:13 ALT 12 units/L (7-56) 09/17/16 18:13 Alkaline Phosphatase 126 units/L (35-129) 09/17/16 18:13 Ammonia 27.0 umol/L (25-60) 09/17/16 19:15 Total Creatine Kinase 325 units/L (55-170) H 09/20/16 18:11 CK-MB (CK-2) 2.2 ng/mL (0.0-4.0) 09/20/16 18:11 CK-MB (CK-2) Rel Index 0.6 (0-4) 09/20/16 18:11 Troponin T < 0.010 ng/mL (0.00-0.029) 09/20/16 18:11 C-Reactive Protein 9.30 mg/dL (0.00-1.30) H 09/18/16 03:21 Total Protein 7.2 g/dL (6.3-8.2) 09/17/16 18:13 Albumin 4.0 g/dL (3.9-5) 09/17/16 18:13 Albumin/Globulin Ratio 1.3 % 09/17/16 18:13 Triglycerides 98 mg/dL (2-149) 09/17/16 18:13 Cholesterol 139 mg/dL (50-199) 09/17/16 18:13 LDL Cholesterol Direct 49 mg/dL (50-130) L 09/17/16 18:13 HDL Cholesterol 71 mg/dL (40-59) H 09/17/16 18:13 Cholesterol/HDL Ratio 1.95 % 09/17/16 18:13 TSH 0.519 mlU/mL (0.270-4.200) 09/17/16 19:15 Urine Color Yellow (Yellow) 09/17/16 18:43 Urine Turbidity Clear (Clear) 09/17/16 18:43 Urine pH 5.0 (5.0-7.0) 09/17/16 18:43 Ur Specific [place] 1.014 (1.003-1.030) 09/17/16 18:43 Urine Protein <15 mg/dl mg/dL (Negative) 09/17/16 18:43 Urine Glucose (UA) Neg mg/dL (Negative) 09/17/16 18:43 Urine Ketones Neg mg/dL (Negative) 09/17/16 18:43 Urine Blood Sm (Negative) 09/17/16 18:43 Urine Nitrite Neg (Negative) 09/17/16 18:43 Urine Bilirubin Neg (Negative) 09/17/16 18:43 Urine Urobilinogen < 2.0 mg/dL (<2.0) 09/17/16 18:43 Ur Leukocyte Esterase Neg (Negative) 09/17/16 18:43 Urine WBC (Auto) < 1.0 /HPF (0.0-6.0) 09/17/16 18:43 Urine RBC (Auto) 1.0 /HPF (0.0-6.0) 09/17/16 18:43 Salicylates < 0.3 mg/dL (2.8-20.0) L 09/17/16 19:15 Acetaminophen < 15.0 ug/mL (10.0-30.0) 09/17/16 18:13 Plasma/Serum Alcohol < 0.01 gm% (0-0.07) 09/17/16 19:15
--- NOTE | 2016-09-21 16:47 | Progress Note ---
Assessment and Plan (1) Acute hypoxemic respiratory failure Current Visit: Yes Status: Acute Plan to address problem: - continue bronchodilators and pulmonary toilet - continue aspiration precautions / addressed VAP bundle - continue wean oxygen for O2 Sats > 92-94% - adjust anxiolytics/antipsychotics (will begin seroquel taper) - continue empiric AB's therapy and follow cultures - will begin VTE w/up re: acute hypotensive episode - improved (2) MICHAEL (acute kidney injury) Current Visit: No Status: Acute Plan to address problem: - appears pre-renal - continue volume resuscitation - follow I's & O's - follow electrolytes and correct as necessary (3) Acute exacerbation of COPD with asthma Current Visit: No Status: Acute Plan to address problem: - as for acute resp failure above - continue systemic steroids - added brovana (4) Coumadin toxicity Current Visit: No Status: Acute Qualifiers: Encounter type: initial encounter Injury intent: accidental or unintentional Qualified Code(s): T45.511A - Poisoning by anticoagulants, accidental (unintentional), initial encounter Plan to address problem: - on hold - follow PT/INR - no gross bleeding (5) Diabetes Current Visit: No Status: Acute Qualifiers: Diabetes mellitus type: D Diabetes mellitus complication status: D Diabetes mellitus complication detail: D Diabetic retinopathy severity: D Proliferative retinopathy type: P Diabetes mellitus macular edema: D Diabetes mellitus penitentiary insulin use: D Laterality: L Chronic kidney disease stage: C Plan to address problem: - continue SSI - introduce Detemir insulin (6) Syncope Current Visit: No Status: Acute Qualifiers: Syncope type: S Encounter type: E Plan to address problem: - may have been related to hypoxemia - acute hypotension bothersome - follow 2D ECHO - troponin unremarkable - already anticoagulated and h/o VTE - continue volume resuscitation - trend serum lactate (was elevated) (7) Discharge planning issues Current Visit: Yes Status: Acute Plan to address problem: - ok to transfer out of ICU today Subjective Date of service: 09/21/16 Principal diagnosis: Acute Hypoxemic Respiratory Failure on MVS; MICHAEL Interval history: Seen and examined at bedside; 24 hour events reviewed; nursing and respiratory care staff consulted; no adverse overnight events reported to me; resting peacefully in bed; denies acute chest pains or increased SOB; looks and feels better; no emesis or overt aspiration; no hemoptysis Objective Vital Signs - 12hr 07/29/17 07/29/17 07/29/17 05:01 06:00 07:01 Temperature Pulse Rate 88 76 90 Pulse Rate [ Anterior Bilateral Throughout] Respiratory 11 L 14 16 Rate Respiratory Rate [Anterior Bilateral Throughout] Blood Pressure 126/60 125/59 112/57 O2 Sat by Pulse 100 100 96 Oximetry 09/21/16 09/21/16 09/21/16 07:37 08:00 08:18 Temperature 98.0 F Pulse Rate 96 H Pulse Rate [ 110 H Anterior Bilateral Throughout] Respiratory 23 Rate Respiratory 20 Rate [Anterior Bilateral Throughout] Blood Pressure 122/65 O2 Sat by Pulse 97 98 Oximetry 09/21/16 09/21/16 09/21/16 08:28 09:01 09:41 Temperature Pulse Rate 110 H 92 H Pulse Rate [ 95 H Anterior Bilateral Throughout] Respiratory 28 H Rate Respiratory 20 Rate [Anterior Bilateral Throughout] Blood Pressure 113/74 117/74 O2 Sat by Pulse 95 Oximetry 09/21/16 09/21/16 09/21/16 10:00 10:49 11:00 Temperature Pulse Rate 100 H 107 H Pulse Rate [ Anterior Bilateral Throughout] Respiratory 18 20 Rate Respiratory Rate [Anterior Bilateral Throughout] Blood Pressure 123/53 112/63 125/60 O2 Sat by Pulse 100 100 Oximetry 09/21/16 09/21/16 09/21/16 11:47 12:01 12:41 Temperature 98.3 F Pulse Rate 117 H Pulse Rate [ 92 H Anterior Bilateral Throughout] Respiratory 24 Rate Respiratory 20 Rate [Anterior Bilateral Throughout] Blood Pressure 117/68 O2 Sat by Pulse 99 Oximetry 09/21/16 09/21/16 09/21/16 12:53 13:00 14:00 Temperature Pulse Rate 102 H 92 H Pulse Rate [ 103 H Anterior Bilateral Throughout] Respiratory 25 H 23 Rate Respiratory 20 Rate [Anterior Bilateral Throughout] Blood Pressure 106/53 123/63 O2 Sat by Pulse 100 100 Oximetry Constitutional: no acute distress, alert Eyes: non-icteric ENT: oropharynx moist Neck: supple, no lymphadenopathy Effort: mildly labored Ascultation: Bilateral: diminished breath sounds, wheezes (faint exp in bases), rales (scant bilaterally) Cardiovascular: regular rate and rhythm, other (tachycardia in 120's to 130's) Gastrointestinal: normoactive bowel sounds, soft, non-tender, non-distended Integumentary: normal Extremities: no cyanosis, no edema, pulses normal, no ischemia or petechiae Neurologic: normal mental status, non-focal exam, pupils equal and round, motor strength normal and Psychiatric: mood appropriate, affect normal CBC and BMP: 09/21/16 03:38 09/21/16 03:38 ABG, PT/INR, D-dimer: ABG POC ABG pH 7.415 (7.35-7.45) 09/20/16 16:47 POC ABG pCO2 37.1 (35-45) 09/20/16 16:47 POC ABG pO2 105 (80-105) 09/20/16 16:47 POC ABG HCO3 23.8 09/20/16 16:47 POC ABG Total CO2 25 09/20/16 16:47 POC ABG O2 Sat 98 09/20/16 16:47 PT/INR, D-dimer PT 34.5 Sec. (12.2-14.9) H 09/21/16 03:38 INR 3.39 (0.87-1.13) H 09/21/16 03:38 D-Dimer 567.12 ng/mlDDU (0-234) H 09/20/16 18:11 Abnormal lab findings: Abnormal Labs 09/17/16 09/17/16 09/18/16 20:58 22:37 01:02 WBC RBC Hgb Hct MCV MCH MCHC RDW Seg Neuts % (Manual) Lymphocytes % (Manual) Seg Neutrophils # Man Lymphocytes # (Manual) PT INR D-Dimer POC ABG pH 7.156 L POC ABG pO2 357 H 147 H Sodium Chloride Carbon Dioxide BUN Glucose POC Glucose 225 H Lactic Acid Calcium Magnesium Total Creatine Kinase C-Reactive Protein 09/18/16 09/18/16 09/18/16 03:21 03:21 03:21 WBC RBC 3.56 L Hgb 9.1 L Hct 27.9 L MCV 78 L MCH 26 L MCHC RDW 17.0 H Seg Neuts % (Manual) 98.0 H Lymphocytes % (Manual) 1.0 L Seg Neutrophils # Man 10.2 H Lymphocytes # (Manual) 0.1 L PT 29.7 H INR 2.65 H D-Dimer POC ABG pH POC ABG pO2 Sodium Chloride Carbon Dioxide 21 L D BUN 55 H Glucose 146 H POC Glucose Lactic Acid Calcium Magnesium Total Creatine Kinase C-Reactive Protein 09/18/16 09/18/16 09/18/16 03:21 12:17 17:37 WBC RBC Hgb Hct MCV MCH MCHC RDW Seg Neuts % (Manual) Lymphocytes % (Manual) Seg Neutrophils # Man Lymphocytes # (Manual) PT INR D-Dimer POC ABG pH POC ABG pO2 Sodium Chloride Carbon Dioxide BUN Glucose POC Glucose 206 H 189 H Lactic Acid Calcium Magnesium 2.90 H Total Creatine Kinase C-Reactive Protein 9.30 H 09/18/16 09/19/16 09/19/16 23:23 04:19 04:19 WBC 13.2 H RBC 3.51 L Hgb 9.0 L Hct 27.4 L MCV 78 L MCH 26 L MCHC RDW 17.1 H Seg Neuts % (Manual) 86.0 H Lymphocytes % (Manual) 9.0 L Seg Neutrophils # Man 11.4 H Lymphocytes # (Manual) PT 40.3 H INR 3.89 H D-Dimer POC ABG pH POC ABG pO2 Sodium Chloride Carbon Dioxide BUN Glucose POC Glucose 191 H Lactic Acid Calcium Magnesium Total Creatine Kinase C-Reactive Protein 09/19/16 09/19/16 09/19/16 04:19 04:40 05:22 WBC RBC Hgb Hct MCV MCH MCHC RDW Seg Neuts % (Manual) Lymphocytes % (Manual) Seg Neutrophils # Man Lymphocytes # (Manual) PT INR D-Dimer POC ABG pH POC ABG pO2 125 H Sodium Chloride 108.0 H Carbon Dioxide BUN 48 H Glucose 206 H POC Glucose 222 H Lactic Acid Calcium Magnesium Total Creatine Kinase C-Reactive Protein 09/19/16 09/19/16 09/19/16 11:59 17:58 23:43 WBC RBC Hgb Hct MCV MCH MCHC RDW Seg Neuts % (Manual) Lymphocytes % (Manual) Seg Neutrophils # Man Lymphocytes # (Manual) PT INR D-Dimer POC ABG pH POC ABG pO2 Sodium Chloride Carbon Dioxide BUN Glucose POC Glucose 162 H 201 H 236 H Lactic Acid Calcium Magnesium Total Creatine Kinase C-Reactive Protein 09/20/16 09/20/16 09/20/16 04:04 05:03 05:03 WBC 15.9 H RBC Hgb 9.5 L Hct 30.5 L MCV 81 L MCH 25 L MCHC 31 L RDW 17.6 H Seg Neuts % (Manual) 94.0 H Lymphocytes % (Manual) 4.0 L Seg Neutrophils # Man 14.9 H Lymphocytes # (Manual) 0.6 L PT 46.0 H INR 4.87 H D-Dimer POC ABG pH POC ABG pO2 Sodium Chloride Carbon Dioxide BUN Glucose POC Glucose 129 H Lactic Acid Calcium Magnesium Total Creatine Kinase C-Reactive Protein 09/20/16 09/20/16 09/20/16 05:03 12:25 18:02 WBC RBC Hgb Hct MCV MCH MCHC RDW Seg Neuts % (Manual) Lymphocytes % (Manual) Seg Neutrophils # Man Lymphocytes # (Manual) PT INR D-Dimer POC ABG pH POC ABG pO2 Sodium 146 H Chloride 107.5 H Carbon Dioxide BUN 45 H Glucose 129 H POC Glucose 249 H 140 H Lactic Acid Calcium Magnesium Total Creatine Kinase C-Reactive Protein 09/20/16 09/20/16 09/20/16 18:11 18:11 18:11 WBC RBC Hgb Hct MCV MCH MCHC RDW Seg Neuts % (Manual) Lymphocytes % (Manual) Seg Neutrophils # Man Lymphocytes # (Manual) PT INR D-Dimer 567.12 H POC ABG pH POC ABG pO2 Sodium Chloride Carbon Dioxide BUN Glucose POC Glucose Lactic Acid 2.80 H* Calcium Magnesium Total Creatine Kinase 325 H C-Reactive Protein 09/20/16 09/21/16 09/21/16 23:55 03:38 03:38 WBC 15.5 H RBC 3.60 L Hgb 9.0 L Hct 28.2 L MCV 78 L MCH 25 L MCHC RDW 17.3 H Seg Neuts % (Manual) 89.0 H Lymphocytes % (Manual) 6.0 L Seg Neutrophils # Man 13.8 H Lymphocytes # (Manual) 0.9 L PT 34.5 H INR 3.39 H D-Dimer POC ABG pH POC ABG pO2 Sodium Chloride Carbon Dioxide BUN Glucose POC Glucose 165 H Lactic Acid Calcium Magnesium Total Creatine Kinase C-Reactive Protein 09/21/16 09/21/16 09/21/16 03:38 05:01 11:30 WBC RBC Hgb Hct MCV MCH MCHC RDW Seg Neuts % (Manual) Lymphocytes % (Manual) Seg Neutrophils # Man Lymphocytes # (Manual) PT INR D-Dimer POC ABG pH POC ABG pO2 Sodium Chloride Carbon Dioxide BUN 56 H Glucose POC Glucose 117 H 184 H Lactic Acid Calcium 8.0 L Magnesium Total Creatine Kinase C-Reactive Protein Chest x-ray: image reviewed
[2016-09-21] MEDS: LEVAQUIN 750MG/150ML 750 MG/150 ML BAG IV SCH (22:03)
[2016-09-22] MEDS: NOVOLOG SUB-Q SCH ×4 (00:14→19:00)
[2016-09-22] MEDS: NACL 0.9% 1000 ML 1,000 ML IV SCH (03:04)
[2016-09-22 08:22] LABS: INR 4.35 (0.87-1.13)
[2016-09-22] MEDS: ZESTRIL PO SCH (09:26)
[2016-09-22] MEDS: HCTZ PO SCH (09:26)
[2016-09-22] MEDS: PEPCID PO SCH ×2 (09:26→22:23)
[2016-09-22] MEDS: LOPRESSOR PO SCH ×2 (09:27→22:21)
[2016-09-22] MEDS: LEVEMIR SUB-Q SCH (09:28)
[2016-09-22] MEDS: PERCOCET 5/325 PO PRN ×2 (09:28→20:19)
[2016-09-22] MEDS: Centrum Liq PO SCH (10:18)
[2016-09-22 11:25] LABS: Basophils % (Auto) 0.1 % (0.0-1.8); Hematocrit 29.4 % (35.5-45.6); Hemoglobin 9.7 gm/dl (11.8-15.2); Mean Corpuscular HGB Conc 33 % (32-34); Mean Corpuscular Volume 78 fl (84-94); Platelet Count 331 K/mm3 (140-440); Red Blood Count 3.77 M/mm3 (3.65-5.03); Red Cell Distribution Width 17.1 % (13.2-15.2); White Blood Count 12.1 K/mm3 (4.5-11.0)
[2016-09-22 11:40] LABS: Mean Corpuscular Hemoglobin 26 pg (28-32)
[2016-09-22 11:50] LABS: Anion Gap 19 mmol/L; BUN/Creatinine Ratio 34.54; Blood Urea Nitrogen 38 mg/dL (9-20); Calcium 8.5 mg/dL (8.4-10.2); Carbon Dioxide 21 mmol/L (22-30); Chloride 94.8 mmol/L (98-107); Glucose 124 mg/dL (75-100); Potassium 5.1 mmol/L (3.6-5.0); Sodium 130 mmol/L (137-145)
--- NOTE | 2016-09-22 13:11 | Progress Note ---
Assessment and Plan Assessment and plan: Acute hypoxic respiratory failure - Continue O2 and BiPAP as needed. Patient is extubated. Pulmonary following. Acute COPD exacerbation - Change IV Solu-Medrol to by mouth prednisone, continue nebulizer treatments and Levaquin Leukocytosis. Etiology likely secondary to IV steroids. 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 DVT prophylaxis -Patient is on Coumadin Deconditioning. PT evaluation. Disposition. Pt. will likely need rehabilitation placement. History Interval history: Patient is now extubated and is doing well Hospitalist Physical - Constitutional Vitals: Temp Pulse Resp BP Pulse Ox 99.2 F 79 20 139/67 100 09/22/16 10:00 09/22/16 10:00 09/22/16 10:00 09/22/16 10:00 09/22/16 10:00 General appearance: Present: no acute distress, well-nourished - EENT Eyes: Present: PERRL, EOM intact ENT: hearing intact, clear oral mucosa, dentition normal - Neck Neck: Present: supple, normal ROM - Respiratory Respiratory effort: normal Respiratory: bilateral: CTA - Cardiovascular Rhythm: regular Heart Sounds: Present: S1 & S2. Absent: gallop, rub - Extremities Extremities: no ischemia, No edema, Full ROM - Abdominal General gastrointestinal: soft, non-tender, non-distended, normal bowel sounds - Integumentary Integumentary: Present: clear, warm, dry - Neurologic Neurologic: CNII-XII intact, moves all extremities Results - Labs CBC & Chem 7: 09/22/16 11:14 09/22/16 11:14 Labs: Laboratory Last Values WBC 12.1 K/mm3 (4.5-11.0) H 09/22/16 11:14 RBC 3.77 M/mm3 (3.65-5.03) 09/22/16 11:14 Hgb 9.7 gm/dl (11.8-15.2) L 09/22/16 11:14 Hct 29.4 % (35.5-45.6) L 09/22/16 11:14 MCV 78 fl (84-94) L 09/22/16 11:14 MCH 26 pg (28-32) L 09/22/16 11:14 MCHC 33 % (32-34) 09/22/16 11:14 RDW 17.1 % (13.2-15.2) H 09/22/16 11:14 Plt Count 331 K/mm3 (140-440) 09/22/16 11:14 Lymph % (Auto) 4.1 % (13.4-35.0) L 09/22/16 11:14 [place] % (Auto) 6.5 % (0.0-7.3) 09/22/16 11:14 Eos % (Auto) 0.0 % (0.0-4.3) 09/22/16 11:14 Baso % (Auto) 0.1 % (0.0-1.8) 09/22/16 11:14 Lymph # 0.5 K/mm3 (1.2-5.4) L 09/22/16 11:14 [place] # 0.8 K/mm3 (0.0-0.8) 09/22/16 11:14 Eos # 0.0 K/mm3 (0.0-0.4) 09/22/16 11:14 Baso # 0.0 K/mm3 (0.0-0.1) 09/22/16 11:14 Add Manual Diff Complete 09/21/16 03:38 Total Counted 100 09/21/16 03:38 Seg Neutrophils % 89.3 % (40.0-70.0) H 09/22/16 11:14 Seg Neuts % (Manual) 89.0 % (40.0-70.0) H 09/21/16 03:38 Band Neutrophils % 0 % 09/21/16 03:38 Lymphocytes % (Manual) 6.0 % (13.4-35.0) L 09/21/16 03:38 Reactive Lymphs % (Man) 0 % 09/21/16 03:38 Monocytes % (Manual) 5.0 % (0.0-7.3) 09/21/16 03:38 Eosinophils % (Manual) 0 % (0.0-4.3) 09/21/16 03:38 Basophils % (Manual) 0 % (0.0-1.8) 09/21/16 03:38 Metamyelocytes % 0 % 09/21/16 03:38 Myelocytes % 0 % 09/21/16 03:38 Promyelocytes % 0 % 09/21/16 03:38 Blast Cells % 0 % 09/21/16 03:38 Nucleated RBC % Not Reportable 09/21/16 03:38 Seg Neutrophils # 10.8 K/mm3 (1.8-7.7) H 09/22/16 11:14 Seg Neutrophils # Man 13.8 K/mm3 (1.8-7.7) H 09/21/16 03:38 Band Neutrophils # 0.0 K/mm3 09/21/16 03:38 Lymphocytes # (Manual) 0.9 K/mm3 (1.2-5.4) L 09/21/16 03:38 Abs React Lymphs (Man) 0.0 K/mm3 09/21/16 03:38 Monocytes # (Manual) 0.8 K/mm3 (0.0-0.8) 09/21/16 03:38 Eosinophils # (Manual) 0.0 K/mm3 (0.0-0.4) 09/21/16 03:38 Basophils # (Manual) 0.0 K/mm3 (0.0-0.1) 09/21/16 03:38 Metamyelocytes # 0.0 K/mm3 09/21/16 03:38 Myelocytes # 0.0 K/mm3 09/21/16 03:38 Promyelocytes # 0.0 K/mm3 09/21/16 03:38 Blast Cells # 0.0 K/mm3 09/21/16 03:38 WBC Morphology Not Reportable 09/21/16 03:38 Hypersegmented Neuts Not Reportable 09/21/16 03:38 Hyposegmented Neuts Not Reportable 09/21/16 03:38 Hypogranular Neuts Not Reportable 09/21/16 03:38 Smudge Cells Not Reportable 09/21/16 03:38 Toxic Granulation Not Reportable 09/21/16 03:38 Toxic Vacuolation Not Reportable 09/21/16 03:38 Dohle Bodies Not Reportable 09/21/16 03:38 Pelger-Huet Anomaly Not Reportable 09/21/16 03:38 Yvonne Rods Not Reportable 09/21/16 03:38 Platelet Estimate Consistent w auto 09/21/16 03:38 Clumped Platelets Not Reportable 09/21/16 03:38 Plt Clumps, EDTA Not Reportable 09/21/16 03:38 Large Platelets Not Reportable 09/21/16 03:38 Giant Platelets Not Reportable 09/21/16 03:38 Platelet Satelliting Not Reportable 09/21/16 03:38 Plt Morphology Comment Not Reportable 09/21/16 03:38 RBC Morphology Not Reportable 09/21/16 03:38 Dimorphic RBCs Not Reportable 09/21/16 03:38 Polychromasia Not Reportable 09/21/16 03:38 Hypochromasia 1+ 09/21/16 03:38 Poikilocytosis Not Reportable 09/21/16 03:38 Anisocytosis 1+ 09/21/16 03:38 Microcytosis Not Reportable 09/21/16 03:38 Macrocytosis Not Reportable 09/21/16 03:38 Spherocytes Not Reportable 09/21/16 03:38 Pappenheimer Bodies Not Reportable 09/21/16 03:38 Sickle Cells Not Reportable 09/21/16 03:38 Target Cells Not Reportable 09/21/16 03:38 Tear Drop Cells Not Reportable 09/21/16 03:38 Ovalocytes Not Reportable 09/21/16 03:38 Helmet Cells Not Reportable 09/21/16 03:38 [place] Bodies Not Reportable 09/21/16 03:38 [place] Rings Not Reportable 09/21/16 03:38 [place] Cells Not Reportable 09/21/16 03:38 Bite Cells Not Reportable 09/21/16 03:38 Crenated Cell Not Reportable 09/21/16 03:38 Elliptocytes Not Reportable 09/21/16 03:38 Acanthocytes (Spur) Not Reportable 09/21/16 03:38 Rouleaux Not Reportable 09/21/16 03:38 Hemoglobin C Crystals Not Reportable 09/21/16 03:38 Schistocytes Not Reportable 09/21/16 03:38 Malaria parasites Not Reportable 09/21/16 03:38 [place] Bodies Not Reportable 09/21/16 03:38 Hem Pathologist Commnt No 09/21/16 03:38 PT 42.1 Sec. (12.2-14.9) H 09/22/16 08:00 INR 4.35 (0.87-1.13) H 09/22/16 08:00 APTT 41.8 Sec. (24.2-36.6) H 09/17/16 18:13 D-Dimer 567.12 ng/mlDDU (0-234) H 09/20/16 18:11 POC ABG pH 7.415 (7.35-7.45) 09/20/16 16:47 POC ABG pCO2 37.1 (35-45) 09/20/16 16:47 POC ABG pO2 105 (80-105) 09/20/16 16:47 POC ABG HCO3 23.8 09/20/16 16:47 POC ABG Total CO2 25 09/20/16 16:47 POC ABG O2 Sat 98 09/20/16 16:47 POC ABG Base Excess -1 09/20/16 16:47 FiO2 28 % 09/20/16 16:47 Sodium 130 mmol/L (137-145) L D 09/22/16 11:14 Potassium 5.1 mmol/L (3.6-5.0) H 09/22/16 11:14 Chloride 94.8 mmol/L (98-107) L 09/22/16 11:14 Carbon Dioxide 21 mmol/L (22-30) L 09/22/16 11:14 Anion Gap 19 mmol/L 09/22/16 11:14 BUN 38 mg/dL (9-20) H 09/22/16 11:14 Creatinine 1.1 mg/dL (0.8-1.5) 09/22/16 11:14 Estimated GFR > 60 ml/min 09/22/16 11:14 BUN/Creatinine Ratio 34.54 % 09/22/16 11:14 Glucose 124 mg/dL (75-100) H 09/22/16 11:14 POC Glucose 121 (70-105) H 09/22/16 11:56 Hemoglobin A1c 5.7 % (4-6) 09/17/16 18:13 Lactic Acid 4.10 mmol/L (0.7-2.0) H* 09/21/16 17:54 Calcium 8.5 mg/dL (8.4-10.2) 09/22/16 11:14 Phosphorus 3.90 mg/dL (2.5-4.5) 09/18/16 03:21 Magnesium 2.90 mg/dL (1.7-2.3) H 09/18/16 03:21 Total Bilirubin 0.40 mg/dL (0.1-1.2) 09/17/16 18:13 AST 32 units/L (5-40) 09/17/16 18:13 ALT 12 units/L (7-56) 09/17/16 18:13 Alkaline Phosphatase 126 units/L (35-129) 09/17/16 18:13 Ammonia 27.0 umol/L (25-60) 09/17/16 19:15 Total Creatine Kinase 325 units/L (55-170) H 09/20/16 18:11 CK-MB (CK-2) 2.2 ng/mL (0.0-4.0) 09/20/16 18:11 CK-MB (CK-2) Rel Index 0.6 (0-4) 09/20/16 18:11 Troponin T < 0.010 ng/mL (0.00-0.029) 09/20/16 18:11 C-Reactive Protein 9.30 mg/dL (0.00-1.30) H 09/18/16 03:21 Total Protein 7.2 g/dL (6.3-8.2) 09/17/16 18:13 Albumin 4.0 g/dL (3.9-5) 09/17/16 18:13 Albumin/Globulin Ratio 1.3 % 09/17/16 18:13 Triglycerides 98 mg/dL (2-149) 09/17/16 18:13 Cholesterol 139 mg/dL (50-199) 09/17/16 18:13 LDL Cholesterol Direct 49 mg/dL (50-130) L 09/17/16 18:13 HDL Cholesterol 71 mg/dL (40-59) H 09/17/16 18:13 Cholesterol/HDL Ratio 1.95 % 09/17/16 18:13 TSH 0.519 mlU/mL (0.270-4.200) 09/17/16 19:15 Urine Color Yellow (Yellow) 09/17/16 18:43 Urine Turbidity Clear (Clear) 09/17/16 18:43 Urine pH 5.0 (5.0-7.0) 09/17/16 18:43 Ur Specific [place] 1.014 (1.003-1.030) 09/17/16 18:43 Urine Protein <15 mg/dl mg/dL (Negative) 09/17/16 18:43 Urine Glucose (UA) Neg mg/dL (Negative) 09/17/16 18:43 Urine Ketones Neg mg/dL (Negative) 09/17/16 18:43 Urine Blood Sm (Negative) 09/17/16 18:43 Urine Nitrite Neg (Negative) 09/17/16 18:43 Urine Bilirubin Neg (Negative) 09/17/16 18:43 Urine Urobilinogen < 2.0 mg/dL (<2.0) 09/17/16 18:43 Ur Leukocyte Esterase Neg (Negative) 09/17/16 18:43 Urine WBC (Auto) < 1.0 /HPF (0.0-6.0) 09/17/16 18:43 Urine RBC (Auto) 1.0 /HPF (0.0-6.0) 09/17/16 18:43 Salicylates < 0.3 mg/dL (2.8-20.0) L 09/17/16 19:15 Acetaminophen < 15.0 ug/mL (10.0-30.0) 09/17/16 18:13 Plasma/Serum Alcohol < 0.01 gm% (0-0.07) 09/17/16 19:15
[2016-09-22] MEDS: DUONEB *Not for PRN Use IH SCH ×4 (14:18→20:04)
--- NOTE | 2016-09-22 21:55 | Progress Note ---
Assessment and Plan Patient weak and emaciated. Resting on 2 litres O2. O2 saturation 100%.Says slightly breathing better than admission. - Patient Problems (1) Acute hypoxemic respiratory failure Current Visit: Yes Status: Acute Plan to address problem: O2 supplementation 2 litres. Albuterol/atrovent aerosol treatments q 6 hours. Continue PO prednisone. Continue famotadine. SCDs (2) Acute exacerbation of COPD with asthma Current Visit: No Status: Acute Plan to address problem: O2 supplementation 2 litres. Albuterol/atrovent aerosol treatments q 6 hours. Continue PO prednisone. Continue famotadine. SCDs Continue Levaquine. (3) MICHAEL (acute kidney injury) Current Visit: No Status: Acute Plan to address problem: Management as per nephrology. (4) HTN (hypertension) Current Visit: No Status: Chronic Qualifiers: Hypertension type: essential hypertension Qualified Code(s): I10 - Essential (primary) hypertension Plan to address problem: Management as per primary care. (5) Diabetes Current Visit: No Status: Acute Qualifiers: Diabetes mellitus type: D Diabetes mellitus complication status: D Diabetes mellitus complication detail: D Diabetic retinopathy severity: D Proliferative retinopathy type: P Diabetes mellitus macular edema: D Diabetes mellitus jail insulin use: D Laterality: L Chronic kidney disease stage: C Plan to address problem: Management as per primary care. (6) Coumadin toxicity Current Visit: No Status: Acute Qualifiers: Encounter type: initial encounter Injury intent: accidental or unintentional Qualified Code(s): T45.511A - Poisoning by anticoagulants, accidental (unintentional), initial encounter Plan to address problem: Patient not on coumadin. Monitor INR closly. (7) Upper GI bleeding Current Visit: No Status: Acute Plan to address problem: Patient is not activly bleeding now. Management as per gastroenterology. Subjective Date of service: 09/22/16 Principal diagnosis: Acute Hypoxemic Respiratory Failure on MVS; MICHAEL Interval history: Patient weak and emaciated. Resting on 2 litres O2. O2 saturation 100%.Says slightly breathing better than admission. Objective Vital Signs - 12hr 09/22/16 09/22/16 09/22/16 10:00 12:00 14:20 Temperature 99.2 F Pulse Rate 79 Pulse Rate [ 104 H 107 H Anterior Bilateral Throughout] Pulse Rate [ 79 From Monitor] Respiratory 20 Rate Respiratory 17 19 Rate [Anterior Bilateral Throughout] Blood Pressure 139/67 O2 Sat by Pulse 100 Oximetry 09/22/16 09/22/16 09/22/16 20:00 20:05 20:16 Temperature Pulse Rate Pulse Rate [ 89 90 Anterior Bilateral Throughout] Pulse Rate [ From Monitor] Respiratory Rate Respiratory 25 H 21 Rate [Anterior Bilateral Throughout] Blood Pressure O2 Sat by Pulse 100 Oximetry 09/22/16 20:19 Temperature Pulse Rate Pulse Rate [ Anterior Bilateral Throughout] Pulse Rate [ From Monitor] Respiratory 22 Rate Respiratory Rate [Anterior Bilateral Throughout] Blood Pressure O2 Sat by Pulse Oximetry Constitutional: no acute distress, alert Eyes: non-icteric ENT: oropharynx moist Neck: supple, no lymphadenopathy Effort: mildly labored Ascultation: Bilateral: diminished breath sounds, wheezes (faint exp in bases), rales (scant bilaterally) Cardiovascular: regular rate and rhythm, other (tachycardia in 120's to 130's) Gastrointestinal: normoactive bowel sounds, soft, non-tender, non-distended Integumentary: normal Extremities: no cyanosis, no edema, pulses normal, no ischemia or petechiae Neurologic: normal mental status, non-focal exam, pupils equal and round, motor strength normal and Psychiatric: mood appropriate, affect normal CBC and BMP: 09/22/16 11:14 09/22/16 11:14 ABG, PT/INR, D-dimer: ABG POC ABG pH 7.415 (7.35-7.45) 09/20/16 16:47 POC ABG pCO2 37.1 (35-45) 09/20/16 16:47 POC ABG pO2 105 (80-105) 09/20/16 16:47 POC ABG HCO3 23.8 09/20/16 16:47 POC ABG Total CO2 25 09/20/16 16:47 POC ABG O2 Sat 98 09/20/16 16:47 PT/INR, D-dimer PT 42.1 Sec. (12.2-14.9) H 09/22/16 08:00 INR 4.35 (0.87-1.13) H 09/22/16 08:00 D-Dimer 567.12 ng/mlDDU (0-234) H 09/20/16 18:11 Abnormal lab findings: Abnormal Labs 09/17/16 09/17/16 09/18/16 20:58 22:37 01:02 WBC RBC Hgb Hct MCV MCH MCHC RDW Lymph % (Auto) Lymph # Seg Neutrophils % Seg Neuts % (Manual) Lymphocytes % (Manual) Seg Neutrophils # Seg Neutrophils # Man Lymphocytes # (Manual) PT INR D-Dimer POC ABG pH 7.156 L POC ABG pO2 357 H 147 H Sodium Potassium Chloride Carbon Dioxide BUN Glucose POC Glucose 225 H Lactic Acid Calcium Magnesium Total Creatine Kinase C-Reactive Protein 09/18/16 09/18/16 09/18/16 03:21 03:21 03:21 WBC RBC 3.56 L Hgb 9.1 L Hct 27.9 L MCV 78 L MCH 26 L MCHC RDW 17.0 H Lymph % (Auto) Lymph # Seg Neutrophils % Seg Neuts % (Manual) 98.0 H Lymphocytes % (Manual) 1.0 L Seg Neutrophils # Seg Neutrophils # Man 10.2 H Lymphocytes # (Manual) 0.1 L PT 29.7 H INR 2.65 H D-Dimer POC ABG pH POC ABG pO2 Sodium Potassium Chloride Carbon Dioxide 21 L D BUN 55 H Glucose 146 H POC Glucose Lactic Acid Calcium Magnesium Total Creatine Kinase C-Reactive Protein 09/18/16 09/18/16 09/18/16 03:21 12:17 17:37 WBC RBC Hgb Hct MCV MCH MCHC RDW Lymph % (Auto) Lymph # Seg Neutrophils % Seg Neuts % (Manual) Lymphocytes % (Manual) Seg Neutrophils # Seg Neutrophils # Man Lymphocytes # (Manual) PT INR D-Dimer POC ABG pH POC ABG pO2 Sodium Potassium Chloride Carbon Dioxide BUN Glucose POC Glucose 206 H 189 H Lactic Acid Calcium Magnesium 2.90 H Total Creatine Kinase C-Reactive Protein 9.30 H 09/18/16 09/19/16 09/19/16 23:23 04:19 04:19 WBC 13.2 H RBC 3.51 L Hgb 9.0 L Hct 27.4 L MCV 78 L MCH 26 L MCHC RDW 17.1 H Lymph % (Auto) Lymph # Seg Neutrophils % Seg Neuts % (Manual) 86.0 H Lymphocytes % (Manual) 9.0 L Seg Neutrophils # Seg Neutrophils # Man 11.4 H Lymphocytes # (Manual) PT 40.3 H INR 3.89 H D-Dimer POC ABG pH POC ABG pO2 Sodium Potassium Chloride Carbon Dioxide BUN Glucose POC Glucose 191 H Lactic Acid Calcium Magnesium Total Creatine Kinase C-Reactive Protein 09/19/16 09/19/16 09/19/16 04:19 04:40 05:22 WBC RBC Hgb Hct MCV MCH MCHC RDW Lymph % (Auto) Lymph # Seg Neutrophils % Seg Neuts % (Manual) Lymphocytes % (Manual) Seg Neutrophils # Seg Neutrophils # Man Lymphocytes # (Manual) PT INR D-Dimer POC ABG pH POC ABG pO2 125 H Sodium Potassium Chloride 108.0 H Carbon Dioxide BUN 48 H Glucose 206 H POC Glucose 222 H Lactic Acid Calcium Magnesium Total Creatine Kinase C-Reactive Protein 09/19/16 09/19/16 09/19/16 11:59 17:58 23:43 WBC RBC Hgb Hct MCV MCH MCHC RDW Lymph % (Auto) Lymph # Seg Neutrophils % Seg Neuts % (Manual) Lymphocytes % (Manual) Seg Neutrophils # Seg Neutrophils # Man Lymphocytes # (Manual) PT INR D-Dimer POC ABG pH POC ABG pO2 Sodium Potassium Chloride Carbon Dioxide BUN Glucose POC Glucose 162 H 201 H 236 H Lactic Acid Calcium Magnesium Total Creatine Kinase C-Reactive Protein 09/20/16 09/20/16 09/20/16 04:04 05:03 05:03 WBC 15.9 H RBC Hgb 9.5 L Hct 30.5 L MCV 81 L MCH 25 L MCHC 31 L RDW 17.6 H Lymph % (Auto) Lymph # Seg Neutrophils % Seg Neuts % (Manual) 94.0 H Lymphocytes % (Manual) 4.0 L Seg Neutrophils # Seg Neutrophils # Man 14.9 H Lymphocytes # (Manual) 0.6 L PT 46.0 H INR 4.87 H D-Dimer POC ABG pH POC ABG pO2 Sodium Potassium Chloride Carbon Dioxide BUN Glucose POC Glucose 129 H Lactic Acid Calcium Magnesium Total Creatine Kinase C-Reactive Protein 09/20/16 09/20/16 09/20/16 05:03 12:25 18:02 WBC RBC Hgb Hct MCV MCH MCHC RDW Lymph % (Auto) Lymph # Seg Neutrophils % Seg Neuts % (Manual) Lymphocytes % (Manual) Seg Neutrophils # Seg Neutrophils # Man Lymphocytes # (Manual) PT INR D-Dimer POC ABG pH POC ABG pO2 Sodium 146 H Potassium Chloride 107.5 H Carbon Dioxide BUN 45 H Glucose 129 H POC Glucose 249 H 140 H Lactic Acid Calcium Magnesium Total Creatine Kinase C-Reactive Protein 09/20/16 09/20/16 09/20/16 18:11 18:11 18:11 WBC RBC Hgb Hct MCV MCH MCHC RDW Lymph % (Auto) Lymph # Seg Neutrophils % Seg Neuts % (Manual) Lymphocytes % (Manual) Seg Neutrophils # Seg Neutrophils # Man Lymphocytes # (Manual) PT INR D-Dimer 567.12 H POC ABG pH POC ABG pO2 Sodium Potassium Chloride Carbon Dioxide BUN Glucose POC Glucose Lactic Acid 2.80 H* Calcium Magnesium Total Creatine Kinase 325 H C-Reactive Protein 09/20/16 09/21/16 09/21/16 23:55 03:38 03:38 WBC 15.5 H RBC 3.60 L Hgb 9.0 L Hct 28.2 L MCV 78 L MCH 25 L MCHC RDW 17.3 H Lymph % (Auto) Lymph # Seg Neutrophils % Seg Neuts % (Manual) 89.0 H Lymphocytes % (Manual) 6.0 L Seg Neutrophils # Seg Neutrophils # Man 13.8 H Lymphocytes # (Manual) 0.9 L PT 34.5 H INR 3.39 H D-Dimer POC ABG pH POC ABG pO2 Sodium Potassium Chloride Carbon Dioxide BUN Glucose POC Glucose 165 H Lactic Acid Calcium Magnesium Total Creatine Kinase C-Reactive Protein 09/21/16 09/21/16 09/21/16 03:38 05:01 11:30 WBC RBC Hgb Hct MCV MCH MCHC RDW Lymph % (Auto) Lymph # Seg Neutrophils % Seg Neuts % (Manual) Lymphocytes % (Manual) Seg Neutrophils # Seg Neutrophils # Man Lymphocytes # (Manual) PT INR D-Dimer POC ABG pH POC ABG pO2 Sodium Potassium Chloride Carbon Dioxide BUN 56 H Glucose POC Glucose 117 H 184 H Lactic Acid Calcium 8.0 L Magnesium Total Creatine Kinase C-Reactive Protein 09/21/16 09/21/16 09/22/16 16:40 17:54 00:05 WBC RBC Hgb Hct MCV MCH MCHC RDW Lymph % (Auto) Lymph # Seg Neutrophils % Seg Neuts % (Manual) Lymphocytes % (Manual) Seg Neutrophils # Seg Neutrophils # Man Lymphocytes # (Manual) PT INR D-Dimer POC ABG pH POC ABG pO2 Sodium Potassium Chloride Carbon Dioxide BUN Glucose POC Glucose 135 H 187 H Lactic Acid 4.10 H* Calcium Magnesium Total Creatine Kinase C-Reactive Protein 09/22/16 09/22/16 09/22/16 06:24 08:00 11:14 WBC 12.1 H RBC Hgb 9.7 L Hct 29.4 L MCV 78 L MCH 26 L MCHC RDW 17.1 H Lymph % (Auto) 4.1 L Lymph # 0.5 L Seg Neutrophils % 89.3 H Seg Neuts % (Manual) Lymphocytes % (Manual) Seg Neutrophils # 10.8 H Seg Neutrophils # Man Lymphocytes # (Manual) PT 42.1 H INR 4.35 H D-Dimer POC ABG pH POC ABG pO2 Sodium Potassium Chloride Carbon Dioxide BUN Glucose POC Glucose 154 H Lactic Acid Calcium Magnesium Total Creatine Kinase C-Reactive Protein 09/22/16 09/22/16 09/22/16 11:14 11:56 17:28 WBC RBC Hgb Hct MCV MCH MCHC RDW Lymph % (Auto) Lymph # Seg Neutrophils % Seg Neuts % (Manual) Lymphocytes % (Manual) Seg Neutrophils # Seg Neutrophils # Man Lymphocytes # (Manual) PT INR D-Dimer POC ABG pH POC ABG pO2 Sodium 130 L D Potassium 5.1 H Chloride 94.8 L Carbon Dioxide 21 L BUN 38 H Glucose 124 H POC Glucose 121 H 120 H Lactic Acid Calcium Magnesium Total Creatine Kinase C-Reactive Protein Chest x-ray: report reviewed (Unremarkable AP chest has been reported.)
[2016-09-23] MEDS: NOVOLOG SUB-Q SCH ×4 (01:00→21:41)
[2016-09-23 04:07] LABS: INR 1.32 (0.87-1.13)
[2016-09-23] MEDS: PERCOCET 5/325 PO PRN ×2 (04:11→21:48)
[2016-09-23 05:50] LABS: Basophils % (Auto) 0.2 % (0.0-1.8); Eosinophils % (Auto) 0.6 % (0.0-4.3); Hemoglobin 11.3 gm/dl (11.8-15.2); Mean Corpuscular HGB Conc 32 % (32-34); Mean Corpuscular Volume 78 fl (84-94); Platelet Count 357 K/mm3 (140-440); Red Blood Count 4.52 M/mm3 (3.65-5.03); Red Cell Distribution Width 16.8 % (13.2-15.2); White Blood Count 9.5 K/mm3 (4.5-11.0)
[2016-09-23 06:07] LABS: Hematocrit 30.1 % (35.5-45.6); Mean Corpuscular Hemoglobin 25 pg (28-32)
[2016-09-23 06:11] LABS: Anion Gap 20 mmol/L; BUN/Creatinine Ratio 34.54; Blood Urea Nitrogen 38 mg/dL (9-20); Calcium 9.3 mg/dL (8.4-10.2); Carbon Dioxide 25 mmol/L (22-30); Chloride 96.2 mmol/L (98-107); Glucose 107 mg/dL (75-100); Potassium 4.7 mmol/L (3.6-5.0); Sodium 136 mmol/L (137-145)
[2016-09-23] MEDS: DUONEB *Not for PRN Use IH SCH ×3 (07:39→20:15)
[2016-09-23] MEDS: Centrum Liq PO SCH (09:24)
[2016-09-23] MEDS: DELTASONE PO SCH (09:25)
[2016-09-23] MEDS: PEPCID PO SCH ×2 (09:25→21:48)
[2016-09-23] MEDS: LEVAQUIN PO SCH (09:25)
[2016-09-23] MEDS: HCTZ PO SCH (09:25)
[2016-09-23] MEDS: LEVEMIR SUB-Q SCH (09:26)
[2016-09-23] MEDS: LOPRESSOR PO SCH ×2 (09:32→21:44)
[2016-09-23] MEDS: ZESTRIL PO SCH (09:33)
[2016-09-23] MEDS ORDERED: LEVAQUIN PO SCH (10:00)
--- NOTE | 2016-09-23 10:57 | Query- Renal Failure ---
Deacharlene Zambrano Date:___09/23/2016 Zipper Sewing Machine Operator/CDS:___Nimo Phone#:__[phone] Exercise your independent professional judgment when responding to query. Questions asked do not imply a particular answer is desired or expected. We greatly appreciate your clarification on this issue. Clinical Documentation States: 80 Year old male was admitted on 09/17/2016. The hospitalist H&P note states "80-year-old -[place] man with past medical history significant for COPD, diabetes, hypertension, DVT, PE was brought by EMS for altered mental status. He was found to be CT when the corner. Patient is intubated and on mechanical ventilation and history is obtained from chart review." The pulmonology progress note on 09/21/2016 states "(2) MICHAEL (acute kidney injury) Current Visit: No Status: Acute Plan to address problem: - appears pre-renal - continue volume resuscitation - follow I's & O's - follow electrolytes and correct as necessary Clinical Findings Show: Creatinine: 1.4 Please clarify if you mean: Acute Renal Failure with or due to: [ ] Tubular Necrosis [ ] Medullary Necrosis [x ] Vasomotor Nephropathy [ ] Shock Kidney [ ] Tubular Nephrosis [ ] Renal Tubular Stasis [ ] Cortical Necrosis [ ] Acute Renal Failure (unspecified) [ ] Lower Tubular Nephrosis [ ] Other: [ ] Not Applicable Present on Admission: [x ] Yes (Y) [ ] Clinically undeterminable (W) [ ] No (N) Please also document response in your Progress Notes and/or Discharge Summary and indicate if the condition was present on admission. TIFF
--- NOTE | 2016-09-23 11:02 | Query-Altered Level of Consc. ---
Froylan Santiago____Sagar Date:___09/23/2016 Fish Egg Packer/CDS:____Nimo Phone#:___[phone] Exercise your independent professional judgment when responding to this query. Questions asked do not imply a particular answer is desired or expected. We greatly appreciate your clarification on this issue. Clinical Documentation States: 80 Year old male was admitted on 09/17/2016. The Hospitalist H&P note states "80-year-old -[place] man with past medical history significant for COPD, diabetes, hypertension, DVT, PE was brought by EMS for altered mental status. He was found to be CT when the corner. Patient is intubated and on mechanical ventilation and history is obtained from chart review. While in the emergency department he was hypoxic and he was put on BiPAP and he started to get better, but the patient become agitated and took off the BiPAP so the ER doctor intubated him and started on mechanical ventilation. Patient's INR is 2.47 which is therapeutic." Please provide an appropriate diagnosis clarifying the Etiology and Acuity of this clinical scenario: [ x] Metabolic Encephalopathy [ ] Toxic Encephalopathy [ ] Toxic - Metabolic Encephalopathy [ ] Septic Encephalopathy with Sepsis [ ] Septic Encephalopathy without Sepsis [ ] Acute Hepatic Encephalopathy [ ] Subacute Hepatic Encephalopathy [ ] Encephalopathy [ ] Other: [ ] Unable To Determine [ ]Comment/Explanation: Present on Admission: [ x] Yes (Y) [ ] Clinically undeterminable (W) [ ] No (N) Please also document response in your Progress Notes and/or Discharge Summary and indicate if the condition was present on admission. MAJORD
--- NOTE | 2016-09-23 12:24 | Progress Note ---
Assessment and Plan Assessment and plan: Acute hypoxic respiratory failure - Continue O2 and BiPAP as needed. Patient is extubated. Pulmonary following. Acute COPD exacerbation - Change IV Solu-Medrol to by mouth prednisone, continue nebulizer treatments and Levaquin Leukocytosis. Etiology likely secondary to IV steroids. 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 DVT prophylaxis -Patient is on Coumadin Deconditioning. PT evaluation. Disposition. Pt. will likely need rehabilitation placement. History Interval history: Patient is now extubated and is doing well Hospitalist Physical - Constitutional Vitals: Temp Pulse Resp BP Pulse Ox 97.9 F 104 H 20 104/52 99 09/23/16 10:00 09/23/16 10:00 09/23/16 10:00 09/23/16 10:00 09/23/16 10:00 General appearance: Present: no acute distress, well-nourished - EENT Eyes: Present: PERRL, EOM intact ENT: hearing intact, clear oral mucosa, dentition normal - Neck Neck: Present: supple, normal ROM - Respiratory Respiratory effort: normal Respiratory: bilateral: diminished, wheezing - Cardiovascular Rhythm: regular Heart Sounds: Present: S1 & S2. Absent: gallop, rub - Extremities Extremities: no ischemia, No edema, Full ROM - Abdominal General gastrointestinal: soft, non-tender, non-distended, normal bowel sounds - Integumentary Integumentary: Present: clear, warm, dry - Neurologic Neurologic: CNII-XII intact, moves all extremities Results - Labs CBC & Chem 7: 09/23/16 05:15 09/23/16 05:15 Labs: Laboratory Last Values WBC 9.5 K/mm3 (4.5-11.0) 09/23/16 05:15 RBC 4.52 M/mm3 (3.65-5.03) 09/23/16 05:15 Hgb 11.3 gm/dl (11.8-15.2) L 09/23/16 05:15 Hct 30.1 % (35.5-45.6) L 09/23/16 05:15 MCV 78 fl (84-94) L 09/23/16 05:15 MCH 25 pg (28-32) L 09/23/16 05:15 MCHC 32 % (32-34) 09/23/16 05:15 RDW 16.8 % (13.2-15.2) H 09/23/16 05:15 Plt Count 357 K/mm3 (140-440) 09/23/16 05:15 Lymph % (Auto) 17.0 % (13.4-35.0) 09/23/16 05:15 [place] % (Auto) 9.3 % (0.0-7.3) H 09/23/16 05:15 Eos % (Auto) 0.6 % (0.0-4.3) 09/23/16 05:15 Baso % (Auto) 0.2 % (0.0-1.8) 09/23/16 05:15 Lymph # 1.6 K/mm3 (1.2-5.4) 09/23/16 05:15 [place] # 0.9 K/mm3 (0.0-0.8) H 09/23/16 05:15 Eos # 0.1 K/mm3 (0.0-0.4) 09/23/16 05:15 Baso # 0.0 K/mm3 (0.0-0.1) 09/23/16 05:15 Add Manual Diff Complete 09/21/16 03:38 Total Counted 100 09/21/16 03:38 Seg Neutrophils % 72.9 % (40.0-70.0) H 09/23/16 05:15 Seg Neuts % (Manual) 89.0 % (40.0-70.0) H 09/21/16 03:38 Band Neutrophils % 0 % 09/21/16 03:38 Lymphocytes % (Manual) 6.0 % (13.4-35.0) L 09/21/16 03:38 Reactive Lymphs % (Man) 0 % 09/21/16 03:38 Monocytes % (Manual) 5.0 % (0.0-7.3) 09/21/16 03:38 Eosinophils % (Manual) 0 % (0.0-4.3) 09/21/16 03:38 Basophils % (Manual) 0 % (0.0-1.8) 09/21/16 03:38 Metamyelocytes % 0 % 09/21/16 03:38 Myelocytes % 0 % 09/21/16 03:38 Promyelocytes % 0 % 09/21/16 03:38 Blast Cells % 0 % 09/21/16 03:38 Nucleated RBC % Not Reportable 09/21/16 03:38 Seg Neutrophils # 6.9 K/mm3 (1.8-7.7) 09/23/16 05:15 Seg Neutrophils # Man 13.8 K/mm3 (1.8-7.7) H 09/21/16 03:38 Band Neutrophils # 0.0 K/mm3 09/21/16 03:38 Lymphocytes # (Manual) 0.9 K/mm3 (1.2-5.4) L 09/21/16 03:38 Abs React Lymphs (Man) 0.0 K/mm3 09/21/16 03:38 Monocytes # (Manual) 0.8 K/mm3 (0.0-0.8) 09/21/16 03:38 Eosinophils # (Manual) 0.0 K/mm3 (0.0-0.4) 09/21/16 03:38 Basophils # (Manual) 0.0 K/mm3 (0.0-0.1) 09/21/16 03:38 Metamyelocytes # 0.0 K/mm3 09/21/16 03:38 Myelocytes # 0.0 K/mm3 09/21/16 03:38 Promyelocytes # 0.0 K/mm3 09/21/16 03:38 Blast Cells # 0.0 K/mm3 09/21/16 03:38 WBC Morphology Not Reportable 09/21/16 03:38 Hypersegmented Neuts Not Reportable 09/21/16 03:38 Hyposegmented Neuts Not Reportable 09/21/16 03:38 Hypogranular Neuts Not Reportable 09/21/16 03:38 Smudge Cells Not Reportable 09/21/16 03:38 Toxic Granulation Not Reportable 09/21/16 03:38 Toxic Vacuolation Not Reportable 09/21/16 03:38 Dohle Bodies Not Reportable 09/21/16 03:38 Pelger-Huet Anomaly Not Reportable 09/21/16 03:38 Yvonne Rods Not Reportable 09/21/16 03:38 Platelet Estimate Consistent w auto 09/21/16 03:38 Clumped Platelets Not Reportable 09/21/16 03:38 Plt Clumps, EDTA Not Reportable 09/21/16 03:38 Large Platelets Not Reportable 09/21/16 03:38 Giant Platelets Not Reportable 09/21/16 03:38 Platelet Satelliting Not Reportable 09/21/16 03:38 Plt Morphology Comment Not Reportable 09/21/16 03:38 RBC Morphology Not Reportable 09/21/16 03:38 Dimorphic RBCs Not Reportable 09/21/16 03:38 Polychromasia Not Reportable 09/21/16 03:38 Hypochromasia 1+ 09/21/16 03:38 Poikilocytosis Not Reportable 09/21/16 03:38 Anisocytosis 1+ 09/21/16 03:38 Microcytosis Not Reportable 09/21/16 03:38 Macrocytosis Not Reportable 09/21/16 03:38 Spherocytes Not Reportable 09/21/16 03:38 Pappenheimer Bodies Not Reportable 09/21/16 03:38 Sickle Cells Not Reportable 09/21/16 03:38 Target Cells Not Reportable 09/21/16 03:38 Tear Drop Cells Not Reportable 09/21/16 03:38 Ovalocytes Not Reportable 09/21/16 03:38 Helmet Cells Not Reportable 09/21/16 03:38 [place] Bodies Not Reportable 09/21/16 03:38 [place] Rings Not Reportable 09/21/16 03:38 John Cells Not Reportable 09/21/16 03:38 Bite Cells Not Reportable 09/21/16 03:38 Crenated Cell Not Reportable 09/21/16 03:38 Elliptocytes Not Reportable 09/21/16 03:38 Acanthocytes (Spur) Not Reportable 09/21/16 03:38 Rouleaux Not Reportable 09/21/16 03:38 Hemoglobin C Crystals Not Reportable 09/21/16 03:38 Schistocytes Not Reportable 09/21/16 03:38 Malaria parasites Not Reportable 09/21/16 03:38 [place] Angel Bodies Not Reportable 09/21/16 03:38 Hem Pathologist Commnt No 09/21/16 03:38 PT 16.3 Sec. (12.2-14.9) H 09/23/16 03:29 INR 1.32 (0.87-1.13) H 09/23/16 03:29 APTT 41.8 Sec. (24.2-36.6) H 09/17/16 18:13 D-Dimer 567.12 ng/mlDDU (0-234) H 09/20/16 18:11 POC ABG pH 7.415 (7.35-7.45) 09/20/16 16:47 POC ABG pCO2 37.1 (35-45) 09/20/16 16:47 POC ABG pO2 105 (80-105) 09/20/16 16:47 POC ABG HCO3 23.8 09/20/16 16:47 POC ABG Total CO2 25 09/20/16 16:47 POC ABG O2 Sat 98 09/20/16 16:47 POC ABG Base Excess -1 09/20/16 16:47 FiO2 28 % 09/20/16 16:47 Sodium 136 mmol/L (137-145) L 09/23/16 05:15 Potassium 4.7 mmol/L (3.6-5.0) 09/23/16 05:15 Chloride 96.2 mmol/L (98-107) L 09/23/16 05:15 Carbon Dioxide 25 mmol/L (22-30) 09/23/16 05:15 Anion Gap 20 mmol/L 09/23/16 05:15 BUN 38 mg/dL (9-20) H 09/23/16 05:15 Creatinine 1.1 mg/dL (0.8-1.5) 09/23/16 05:15 Estimated GFR > 60 ml/min 09/23/16 05:15 BUN/Creatinine Ratio 34.54 % 09/23/16 05:15 Glucose 107 mg/dL (75-100) H 09/23/16 05:15 POC Glucose 102 (70-105) 09/23/16 06:54 Hemoglobin A1c 5.7 % (4-6) 09/17/16 18:13 Lactic Acid 4.10 mmol/L (0.7-2.0) H* 09/21/16 17:54 Calcium 9.3 mg/dL (8.4-10.2) 09/23/16 05:15 Phosphorus 3.90 mg/dL (2.5-4.5) 09/18/16 03:21 Magnesium 2.90 mg/dL (1.7-2.3) H 09/18/16 03:21 Total Bilirubin 0.40 mg/dL (0.1-1.2) 09/17/16 18:13 AST 32 units/L (5-40) 09/17/16 18:13 ALT 12 units/L (7-56) 09/17/16 18:13 Alkaline Phosphatase 126 units/L (35-129) 09/17/16 18:13 Ammonia 27.0 umol/L (25-60) 09/17/16 19:15 Total Creatine Kinase 325 units/L (55-170) H 09/20/16 18:11 CK-MB (CK-2) 2.2 ng/mL (0.0-4.0) 09/20/16 18:11 CK-MB (CK-2) Rel Index 0.6 (0-4) 09/20/16 18:11 Troponin T < 0.010 ng/mL (0.00-0.029) 09/20/16 18:11 C-Reactive Protein 9.30 mg/dL (0.00-1.30) H 09/18/16 03:21 Total Protein 7.2 g/dL (6.3-8.2) 09/17/16 18:13 Albumin 4.0 g/dL (3.9-5) 09/17/16 18:13 Albumin/Globulin Ratio 1.3 % 09/17/16 18:13 Triglycerides 98 mg/dL (2-149) 09/17/16 18:13 Cholesterol 139 mg/dL (50-199) 09/17/16 18:13 LDL Cholesterol Direct 49 mg/dL (50-130) L 09/17/16 18:13 HDL Cholesterol 71 mg/dL (40-59) H 09/17/16 18:13 Cholesterol/HDL Ratio 1.95 % 09/17/16 18:13 TSH 0.519 mlU/mL (0.270-4.200) 09/17/16 19:15 Urine Color Yellow (Yellow) 09/17/16 18:43 Urine Turbidity Clear (Clear) 09/17/16 18:43 Urine pH 5.0 (5.0-7.0) 09/17/16 18:43 Ur Specific [place] 1.014 (1.003-1.030) 09/17/16 18:43 Urine Protein <15 mg/dl mg/dL (Negative) 09/17/16 18:43 Urine Glucose (UA) Neg mg/dL (Negative) 09/17/16 18:43 Urine Ketones Neg mg/dL (Negative) 09/17/16 18:43 Urine Blood Sm (Negative) 09/17/16 18:43 Urine Nitrite Neg (Negative) 09/17/16 18:43 Urine Bilirubin Neg (Negative) 09/17/16 18:43 Urine Urobilinogen < 2.0 mg/dL (<2.0) 09/17/16 18:43 Ur Leukocyte Esterase Neg (Negative) 09/17/16 18:43 Urine WBC (Auto) < 1.0 /HPF (0.0-6.0) 09/17/16 18:43 Urine RBC (Auto) 1.0 /HPF (0.0-6.0) 09/17/16 18:43 Salicylates < 0.3 mg/dL (2.8-20.0) L 09/17/16 19:15 Acetaminophen < 15.0 ug/mL (10.0-30.0) 09/17/16 18:13 Plasma/Serum Alcohol < 0.01 gm% (0-0.07) 09/17/16 19:15
--- NOTE | 2016-09-23 14:26 | Progress Note ---
Assessment and Plan Patient weak and emaciated. Resting on 2 litres O2. O2 saturation 100%.Says breathing better today. - Patient Problems (1) Acute hypoxemic respiratory failure Current Visit: Yes Status: Acute Plan to address problem: O2 supplementation 2 litres. Albuterol/atrovent aerosol treatments q 6 hours. Continue PO prednisone. Continue famotadine. SCDs (2) Acute exacerbation of COPD with asthma Current Visit: No Status: Acute Plan to address problem: O2 supplementation 2 litres. Albuterol/atrovent aerosol treatments q 6 hours. Continue PO prednisone. Continue famotadine. SCDs Continue Levaquine. (3) MICHAEL (acute kidney injury) Current Visit: No Status: Acute Plan to address problem: Management as per nephrology. (4) HTN (hypertension) Current Visit: No Status: Chronic Qualifiers: Hypertension type: essential hypertension Qualified Code(s): I10 - Essential (primary) hypertension Plan to address problem: Management as per primary care. (5) Diabetes Current Visit: No Status: Acute Qualifiers: Diabetes mellitus type: D Diabetes mellitus complication status: D Diabetes mellitus complication detail: D Diabetic retinopathy severity: D Proliferative retinopathy type: P Diabetes mellitus macular edema: D Diabetes mellitus alf insulin use: D Laterality: L Chronic kidney disease stage: C Plan to address problem: Management as per primary care. (6) Coumadin toxicity Current Visit: No Status: Acute Qualifiers: Encounter type: initial encounter Injury intent: accidental or unintentional Qualified Code(s): T45.511A - Poisoning by anticoagulants, accidental (unintentional), initial encounter Plan to address problem: Patient not on coumadin. Patients INR 1.32. (7) Upper GI bleeding Current Visit: No Status: Acute Plan to address problem: Patient is not activly bleeding now. Management as per gastroenterology. Subjective Date of service: 09/23/16 Principal diagnosis: Acute Hypoxemic Respiratory Failure on MVS; MICHAEL Interval history: Patient weak and emaciated. Resting on 2 litres O2. O2 saturation 100%.Says Breathing Ok. Objective Vital Signs - 12hr 09/23/16 09/23/16 09/23/16 04:11 07:40 07:50 Temperature Pulse Rate Pulse Rate [ 90 91 H Anterior Bilateral Throughout] Respiratory 21 Rate Respiratory 18 18 Rate [Anterior Bilateral Throughout] Blood Pressure O2 Sat by Pulse Oximetry 09/23/16 10:00 Temperature 97.9 F Pulse Rate 104 H Pulse Rate [ Anterior Bilateral Throughout] Respiratory 20 Rate Respiratory Rate [Anterior Bilateral Throughout] Blood Pressure 104/52 O2 Sat by Pulse 99 Oximetry Constitutional: no acute distress, alert Eyes: non-icteric ENT: oropharynx moist Neck: supple, no lymphadenopathy Effort: mildly labored Ascultation: Bilateral: diminished breath sounds, wheezes (faint exp in bases), rales (scant bilaterally) Cardiovascular: regular rate and rhythm, other (tachycardia in 120's to 130's) Gastrointestinal: normoactive bowel sounds, soft, non-tender, non-distended Integumentary: normal Extremities: no cyanosis, no edema, pulses normal, no ischemia or petechiae Neurologic: normal mental status, non-focal exam, pupils equal and round, motor strength normal and Psychiatric: mood appropriate, affect normal CBC and BMP: 09/23/16 05:15 09/23/16 05:15 ABG, PT/INR, D-dimer: ABG POC ABG pH 7.415 (7.35-7.45) 09/20/16 16:47 POC ABG pCO2 37.1 (35-45) 09/20/16 16:47 POC ABG pO2 105 (80-105) 09/20/16 16:47 POC ABG HCO3 23.8 09/20/16 16:47 POC ABG Total CO2 25 09/20/16 16:47 POC ABG O2 Sat 98 09/20/16 16:47 PT/INR, D-dimer PT 16.3 Sec. (12.2-14.9) H 09/23/16 03:29 INR 1.32 (0.87-1.13) H 09/23/16 03:29 D-Dimer 567.12 ng/mlDDU (0-234) H 09/20/16 18:11 Abnormal lab findings: Abnormal Labs 09/17/16 09/17/16 09/18/16 20:58 22:37 01:02 WBC RBC Hgb Hct MCV MCH MCHC RDW Lymph % (Auto) [place] % (Auto) Lymph # [place] # Seg Neutrophils % Seg Neuts % (Manual) Lymphocytes % (Manual) Seg Neutrophils # Seg Neutrophils # Man Lymphocytes # (Manual) PT INR D-Dimer POC ABG pH 7.156 L POC ABG pO2 357 H 147 H Sodium Potassium Chloride Carbon Dioxide BUN Glucose POC Glucose 225 H Lactic Acid Calcium Magnesium Total Creatine Kinase C-Reactive Protein 09/18/16 09/18/16 09/18/16 03:21 03:21 03:21 WBC RBC 3.56 L Hgb 9.1 L Hct 27.9 L MCV 78 L MCH 26 L MCHC RDW 17.0 H Lymph % (Auto) [place] % (Auto) Lymph # [place] # Seg Neutrophils % Seg Neuts % (Manual) 98.0 H Lymphocytes % (Manual) 1.0 L Seg Neutrophils # Seg Neutrophils # Man 10.2 H Lymphocytes # (Manual) 0.1 L PT 29.7 H INR 2.65 H D-Dimer POC ABG pH POC ABG pO2 Sodium Potassium Chloride Carbon Dioxide 21 L D BUN 55 H Glucose 146 H POC Glucose Lactic Acid Calcium Magnesium Total Creatine Kinase C-Reactive Protein 09/18/16 09/18/16 09/18/16 03:21 12:17 17:37 WBC RBC Hgb Hct MCV MCH MCHC RDW Lymph % (Auto) [place] % (Auto) Lymph # [place] # Seg Neutrophils % Seg Neuts % (Manual) Lymphocytes % (Manual) Seg Neutrophils # Seg Neutrophils # Man Lymphocytes # (Manual) PT INR D-Dimer POC ABG pH POC ABG pO2 Sodium Potassium Chloride Carbon Dioxide BUN Glucose POC Glucose 206 H 189 H Lactic Acid Calcium Magnesium 2.90 H Total Creatine Kinase C-Reactive Protein 9.30 H 09/18/16 09/19/16 09/19/16 23:23 04:19 04:19 WBC 13.2 H RBC 3.51 L Hgb 9.0 L Hct 27.4 L MCV 78 L MCH 26 L MCHC RDW 17.1 H Lymph % (Auto) [place] % (Auto) Lymph # [place] # Seg Neutrophils % Seg Neuts % (Manual) 86.0 H Lymphocytes % (Manual) 9.0 L Seg Neutrophils # Seg Neutrophils # Man 11.4 H Lymphocytes # (Manual) PT 40.3 H INR 3.89 H D-Dimer POC ABG pH POC ABG pO2 Sodium Potassium Chloride Carbon Dioxide BUN Glucose POC Glucose 191 H Lactic Acid Calcium Magnesium Total Creatine Kinase C-Reactive Protein 09/19/16 09/19/16 09/19/16 04:19 04:40 05:22 WBC RBC Hgb Hct MCV MCH MCHC RDW Lymph % (Auto) [place] % (Auto) Lymph # [place] # Seg Neutrophils % Seg Neuts % (Manual) Lymphocytes % (Manual) Seg Neutrophils # Seg Neutrophils # Man Lymphocytes # (Manual) PT INR D-Dimer POC ABG pH POC ABG pO2 125 H Sodium Potassium Chloride 108.0 H Carbon Dioxide BUN 48 H Glucose 206 H POC Glucose 222 H Lactic Acid Calcium Magnesium Total Creatine Kinase C-Reactive Protein 09/19/16 09/19/16 09/19/16 11:59 17:58 23:43 WBC RBC Hgb Hct MCV MCH MCHC RDW Lymph % (Auto) [place] % (Auto) Lymph # [place] # Seg Neutrophils % Seg Neuts % (Manual) Lymphocytes % (Manual) Seg Neutrophils # Seg Neutrophils # Man Lymphocytes # (Manual) PT INR D-Dimer POC ABG pH POC ABG pO2 Sodium Potassium Chloride Carbon Dioxide BUN Glucose POC Glucose 162 H 201 H 236 H Lactic Acid Calcium Magnesium Total Creatine Kinase C-Reactive Protein 09/20/16 09/20/16 09/20/16 04:04 05:03 05:03 WBC 15.9 H RBC Hgb 9.5 L Hct 30.5 L MCV 81 L MCH 25 L MCHC 31 L RDW 17.6 H Lymph % (Auto) [place] % (Auto) Lymph # [place] # Seg Neutrophils % Seg Neuts % (Manual) 94.0 H Lymphocytes % (Manual) 4.0 L Seg Neutrophils # Seg Neutrophils # Man 14.9 H Lymphocytes # (Manual) 0.6 L PT 46.0 H INR 4.87 H D-Dimer POC ABG pH POC ABG pO2 Sodium Potassium Chloride Carbon Dioxide BUN Glucose POC Glucose 129 H Lactic Acid Calcium Magnesium Total Creatine Kinase C-Reactive Protein 09/20/16 09/20/16 09/20/16 05:03 12:25 18:02 WBC RBC Hgb Hct MCV MCH MCHC RDW Lymph % (Auto) [place] % (Auto) Lymph # [place] # Seg Neutrophils % Seg Neuts % (Manual) Lymphocytes % (Manual) Seg Neutrophils # Seg Neutrophils # Man Lymphocytes # (Manual) PT INR D-Dimer POC ABG pH POC ABG pO2 Sodium 146 H Potassium Chloride 107.5 H Carbon Dioxide BUN 45 H Glucose 129 H POC Glucose 249 H 140 H Lactic Acid Calcium Magnesium Total Creatine Kinase C-Reactive Protein 09/20/16 09/20/16 09/20/16 18:11 18:11 18:11 WBC RBC Hgb Hct MCV MCH MCHC RDW Lymph % (Auto) [place] % (Auto) Lymph # [place] # Seg Neutrophils % Seg Neuts % (Manual) Lymphocytes % (Manual) Seg Neutrophils # Seg Neutrophils # Man Lymphocytes # (Manual) PT INR D-Dimer 567.12 H POC ABG pH POC ABG pO2 Sodium Potassium Chloride Carbon Dioxide BUN Glucose POC Glucose Lactic Acid 2.80 H* Calcium Magnesium Total Creatine Kinase 325 H C-Reactive Protein 09/20/16 09/21/16 09/21/16 23:55 03:38 03:38 WBC 15.5 H RBC 3.60 L Hgb 9.0 L Hct 28.2 L MCV 78 L MCH 25 L MCHC RDW 17.3 H Lymph % (Auto) [place] % (Auto) Lymph # [place] # Seg Neutrophils % Seg Neuts % (Manual) 89.0 H Lymphocytes % (Manual) 6.0 L Seg Neutrophils # Seg Neutrophils # Man 13.8 H Lymphocytes # (Manual) 0.9 L PT 34.5 H INR 3.39 H D-Dimer POC ABG pH POC ABG pO2 Sodium Potassium Chloride Carbon Dioxide BUN Glucose POC Glucose 165 H Lactic Acid Calcium Magnesium Total Creatine Kinase C-Reactive Protein 09/21/16 09/21/16 09/21/16 03:38 05:01 11:30 WBC RBC Hgb Hct MCV MCH MCHC RDW Lymph % (Auto) [place] % (Auto) Lymph # [place] # Seg Neutrophils % Seg Neuts % (Manual) Lymphocytes % (Manual) Seg Neutrophils # Seg Neutrophils # Man Lymphocytes # (Manual) PT INR D-Dimer POC ABG pH POC ABG pO2 Sodium Potassium Chloride Carbon Dioxide BUN 56 H Glucose POC Glucose 117 H 184 H Lactic Acid Calcium 8.0 L Magnesium Total Creatine Kinase C-Reactive Protein 09/21/16 09/21/16 09/22/16 16:40 17:54 00:05 WBC RBC Hgb Hct MCV MCH MCHC RDW Lymph % (Auto) [place] % (Auto) Lymph # [place] # Seg Neutrophils % Seg Neuts % (Manual) Lymphocytes % (Manual) Seg Neutrophils # Seg Neutrophils # Man Lymphocytes # (Manual) PT INR D-Dimer POC ABG pH POC ABG pO2 Sodium Potassium Chloride Carbon Dioxide BUN Glucose POC Glucose 135 H 187 H Lactic Acid 4.10 H* Calcium Magnesium Total Creatine Kinase C-Reactive Protein 0709/22/16 09/22/16 06:24 08:00 11:14 WBC 12.1 H RBC Hgb 9.7 L Hct 29.4 L MCV 78 L MCH 26 L MCHC RDW 17.1 H Lymph % (Auto) 4.1 L [place] % (Auto) Lymph # 0.5 L [place] # Seg Neutrophils % 89.3 H Seg Neuts % (Manual) Lymphocytes % (Manual) Seg Neutrophils # 10.8 H Seg Neutrophils # Man Lymphocytes # (Manual) PT 42.1 H INR 4.35 H D-Dimer POC ABG pH POC ABG pO2 Sodium Potassium Chloride Carbon Dioxide BUN Glucose POC Glucose 154 H Lactic Acid Calcium Magnesium Total Creatine Kinase C-Reactive Protein 09/22/16 09/22/16 09/22/16 11:14 11:56 17:28 WBC RBC Hgb Hct MCV MCH MCHC RDW Lymph % (Auto) [place] % (Auto) Lymph # [place] # Seg Neutrophils % Seg Neuts % (Manual) Lymphocytes % (Manual) Seg Neutrophils # Seg Neutrophils # Man Lymphocytes # (Manual) PT INR D-Dimer POC ABG pH POC ABG pO2 Sodium 130 L D Potassium 5.1 H Chloride 94.8 L Carbon Dioxide 21 L BUN 38 H Glucose 124 H POC Glucose 121 H 120 H Lactic Acid Calcium Magnesium Total Creatine Kinase C-Reactive Protein 09/23/16 09/23/16 09/23/16 03:29 05:15 05:15 WBC RBC Hgb 11.3 L Hct 30.1 L MCV 78 L MCH 25 L MCHC RDW 16.8 H Lymph % (Auto) [place] % (Auto) 9.3 H Lymph # [place] # 0.9 H Seg Neutrophils % 72.9 H Seg Neuts % (Manual) Lymphocytes % (Manual) Seg Neutrophils # Seg Neutrophils # Man Lymphocytes # (Manual) PT 16.3 H INR 1.32 H D-Dimer POC ABG pH POC ABG pO2 Sodium 136 L Potassium Chloride 96.2 L Carbon Dioxide BUN 38 H Glucose 107 H POC Glucose Lactic Acid Calcium Magnesium Total Creatine Kinase C-Reactive Protein 09/23/16 12:29 WBC RBC Hgb Hct MCV MCH MCHC RDW Lymph % (Auto) [place] % (Auto) Lymph # [place] # Seg Neutrophils % Seg Neuts % (Manual) Lymphocytes % (Manual) Seg Neutrophils # Seg Neutrophils # Man Lymphocytes # (Manual) PT INR D-Dimer POC ABG pH POC ABG pO2 Sodium Potassium Chloride Carbon Dioxide BUN Glucose POC Glucose 136 H Lactic Acid Calcium Magnesium Total Creatine Kinase C-Reactive Protein
[2016-09-23] MEDS ORDERED: COUMADIN PO SCH (17:00)
[2016-09-24] MEDS: NOVOLOG SUB-Q SCH ×4 (03:23→18:00)
[2016-09-24] MEDS: DUONEB *Not for PRN Use IH SCH ×4 (03:50→20:09)
[2016-09-24 05:49] LABS: INR 1.15 (0.87-1.13)
[2016-09-24] MEDS: PERCOCET 5/325 PO PRN (06:35)
[2016-09-24 08:46] LABS: Basophils % (Auto) 0.2 % (0.0-1.8); Eosinophils % (Auto) 0.5 % (0.0-4.3); Hematocrit 34.6 % (35.5-45.6); Mean Corpuscular HGB Conc 32 % (32-34); Mean Corpuscular Volume 77 fl (84-94); Platelet Count 337 K/mm3 (140-440); Red Blood Count 4.48 M/mm3 (3.65-5.03); Red Cell Distribution Width 16.6 % (13.2-15.2); White Blood Count 13.7 K/mm3 (4.5-11.0)
[2016-09-24 08:53] LABS: Mean Corpuscular Hemoglobin 25 pg (28-32)
[2016-09-24 09:04] LABS: BUN/Creatinine Ratio 25.71; Calcium 8.7 mg/dL (8.4-10.2); Chloride 94.4 mmol/L (98-107); Potassium 4.5 mmol/L (3.6-5.0)
[2016-09-24] MEDS: LOPRESSOR PO SCH ×2 (10:01→22:20)
[2016-09-24] MEDS: HCTZ PO SCH (10:02)
[2016-09-24] MEDS: ZESTRIL PO SCH (10:03)
[2016-09-24] MEDS: DELTASONE PO SCH (10:03)
[2016-09-24] MEDS: PEPCID PO SCH ×2 (10:03→22:20)
[2016-09-24] MEDS: Centrum Liq PO SCH (10:04)
[2016-09-24] MEDS: LEVEMIR SUB-Q SCH (10:15)
--- NOTE | 2016-09-24 14:28 | Progress Note ---
Assessment and Plan Patient weak and emaciated.Patient sleeping at this time. No acute respiratory distress. On 2 litres O2. O2 saturation 100%. - Patient Problems (1) Acute hypoxemic respiratory failure Current Visit: Yes Status: Acute Plan to address problem: O2 supplementation 2 litres. Albuterol/atrovent aerosol treatments q 6 hours. Continue PO prednisone. Continue famotadine. SCDs (2) Acute exacerbation of COPD with asthma Current Visit: Yes Status: Acute Plan to address problem: O2 supplementation 2 litres. Albuterol/atrovent aerosol treatments q 6 hours. Continue PO prednisone. Continue famotadine. SCDs Continue Levaquine. (3) MICHAEL (acute kidney injury) Current Visit: No Status: Acute Plan to address problem: Management as per nephrology. (4) HTN (hypertension) Current Visit: No Status: Chronic Qualifiers: Hypertension type: essential hypertension Qualified Code(s): I10 - Essential (primary) hypertension Plan to address problem: Management as per primary care. (5) Diabetes Current Visit: No Status: Acute Qualifiers: Diabetes mellitus type: D Diabetes mellitus complication status: D Diabetes mellitus complication detail: D Diabetic retinopathy severity: D Proliferative retinopathy type: P Diabetes mellitus macular edema: D Diabetes mellitus terminal carman insulin use: D Laterality: L Chronic kidney disease stage: C Plan to address problem: Management as per primary care. (6) Coumadin toxicity Current Visit: No Status: Acute Qualifiers: Encounter type: initial encounter Injury intent: accidental or unintentional Qualified Code(s): T45.511A - Poisoning by anticoagulants, accidental (unintentional), initial encounter Plan to address problem: Patient not on coumadin. Patients INR 1.15. (7) Upper GI bleeding Current Visit: No Status: Acute Plan to address problem: Patient is not activly bleeding now. Management as per gastroenterology. Subjective Date of service: 09/24/16 Principal diagnosis: Acute Hypoxemic Respiratory Failure on MVS; MICHAEL Interval history: Patient weak and emaciated.Patient sleeping at this time. No acute respiratory distress. On 2 litres O2. O2 saturation 100%. Objective Vital Signs - 12hr 09/24/16 09/24/16 09/24/16 03:50 09:38 10:00 Temperature 98.3 F Pulse Rate 93 H 110 H Pulse Rate [ 92 H Anterior Bilateral Throughout] Respiratory 20 Rate Respiratory 18 Rate [Anterior Bilateral Throughout] Blood Pressure 99/57 09/24/16 09/24/16 10:01 10:03 Temperature Pulse Rate 93 H 93 H Pulse Rate [ Anterior Bilateral Throughout] Respiratory Rate Respiratory Rate [Anterior Bilateral Throughout] Blood Pressure 99/57 99/57 Constitutional: no acute distress, alert Eyes: non-icteric ENT: oropharynx moist Neck: supple, no lymphadenopathy Effort: mildly labored Ascultation: Bilateral: diminished breath sounds, wheezes (faint exp in bases), rales (scant bilaterally) Cardiovascular: regular rate and rhythm, other (tachycardia in 120's to 130's) Gastrointestinal: normoactive bowel sounds, soft, non-tender, non-distended Integumentary: normal Extremities: no cyanosis, no edema, pulses normal, no ischemia or petechiae Neurologic: normal mental status, non-focal exam, pupils equal and round, motor strength normal and Psychiatric: mood appropriate, affect normal CBC and BMP: 09/24/16 08:19 09/24/16 08:19 ABG, PT/INR, D-dimer: ABG POC ABG pH 7.415 (7.35-7.45) 09/20/16 16:47 POC ABG pCO2 37.1 (35-45) 09/20/16 16:47 POC ABG pO2 105 (80-105) 09/20/16 16:47 POC ABG HCO3 23.8 09/20/16 16:47 POC ABG Total CO2 25 09/20/16 16:47 POC ABG O2 Sat 98 09/20/16 16:47 PT/INR, D-dimer PT 14.6 Sec. (12.2-14.9) 09/24/16 04:28 INR 1.15 (0.87-1.13) H 09/24/16 04:28 D-Dimer 567.12 ng/mlDDU (0-234) H 09/20/16 18:11 Abnormal lab findings: Abnormal Labs 09/17/16 09/17/16 09/18/16 20:58 22:37 01:02 WBC RBC Hgb Hct MCV MCH MCHC RDW Lymph % (Auto) [place] % (Auto) Lymph # [place] # Seg Neutrophils % Seg Neuts % (Manual) Lymphocytes % (Manual) Seg Neutrophils # Seg Neutrophils # Man Lymphocytes # (Manual) PT INR D-Dimer POC ABG pH 7.156 L POC ABG pO2 357 H 147 H Sodium Potassium Chloride Carbon Dioxide BUN Glucose POC Glucose 225 H Lactic Acid Calcium Magnesium Total Creatine Kinase C-Reactive Protein 09/18/16 09/18/16 09/18/16 03:21 03:21 03:21 WBC RBC 3.56 L Hgb 9.1 L Hct 27.9 L MCV 78 L MCH 26 L MCHC RDW 17.0 H Lymph % (Auto) [place] % (Auto) Lymph # [place] # Seg Neutrophils % Seg Neuts % (Manual) 98.0 H Lymphocytes % (Manual) 1.0 L Seg Neutrophils # Seg Neutrophils # Man 10.2 H Lymphocytes # (Manual) 0.1 L PT 29.7 H INR 2.65 H D-Dimer POC ABG pH POC ABG pO2 Sodium Potassium Chloride Carbon Dioxide 21 L D BUN 55 H Glucose 146 H POC Glucose Lactic Acid Calcium Magnesium Total Creatine Kinase C-Reactive Protein 09/18/16 09/18/16 09/18/16 03:21 12:17 17:37 WBC RBC Hgb Hct MCV MCH MCHC RDW Lymph % (Auto) [place] % (Auto) Lymph # [place] # Seg Neutrophils % Seg Neuts % (Manual) Lymphocytes % (Manual) Seg Neutrophils # Seg Neutrophils # Man Lymphocytes # (Manual) PT INR D-Dimer POC ABG pH POC ABG pO2 Sodium Potassium Chloride Carbon Dioxide BUN Glucose POC Glucose 206 H 189 H Lactic Acid Calcium Magnesium 2.90 H Total Creatine Kinase C-Reactive Protein 9.30 H 09/18/16 09/19/16 09/19/16 23:23 04:19 04:19 WBC 13.2 H RBC 3.51 L Hgb 9.0 L Hct 27.4 L MCV 78 L MCH 26 L MCHC RDW 17.1 H Lymph % (Auto) [place] % (Auto) Lymph # [place] # Seg Neutrophils % Seg Neuts % (Manual) 86.0 H Lymphocytes % (Manual) 9.0 L Seg Neutrophils # Seg Neutrophils # Man 11.4 H Lymphocytes # (Manual) PT 40.3 H INR 3.89 H D-Dimer POC ABG pH POC ABG pO2 Sodium Potassium Chloride Carbon Dioxide BUN Glucose POC Glucose 191 H Lactic Acid Calcium Magnesium Total Creatine Kinase C-Reactive Protein 09/19/16 09/19/16 09/19/16 04:19 04:40 05:22 WBC RBC Hgb Hct MCV MCH MCHC RDW Lymph % (Auto) [place] % (Auto) Lymph # [place] # Seg Neutrophils % Seg Neuts % (Manual) Lymphocytes % (Manual) Seg Neutrophils # Seg Neutrophils # Man Lymphocytes # (Manual) PT INR D-Dimer POC ABG pH POC ABG pO2 125 H Sodium Potassium Chloride 108.0 H Carbon Dioxide BUN 48 H Glucose 206 H POC Glucose 222 H Lactic Acid Calcium Magnesium Total Creatine Kinase C-Reactive Protein 09/19/16 09/19/16 09/19/16 11:59 17:58 23:43 WBC RBC Hgb Hct MCV MCH MCHC RDW Lymph % (Auto) [place] % (Auto) Lymph # [place] # Seg Neutrophils % Seg Neuts % (Manual) Lymphocytes % (Manual) Seg Neutrophils # Seg Neutrophils # Man Lymphocytes # (Manual) PT INR D-Dimer POC ABG pH POC ABG pO2 Sodium Potassium Chloride Carbon Dioxide BUN Glucose POC Glucose 162 H 201 H 236 H Lactic Acid Calcium Magnesium Total Creatine Kinase C-Reactive Protein 09/20/16 09/20/16 09/20/16 04:04 05:03 05:03 WBC 15.9 H RBC Hgb 9.5 L Hct 30.5 L MCV 81 L MCH 25 L MCHC 31 L RDW 17.6 H Lymph % (Auto) [place] % (Auto) Lymph # [place] # Seg Neutrophils % Seg Neuts % (Manual) 94.0 H Lymphocytes % (Manual) 4.0 L Seg Neutrophils # Seg Neutrophils # Man 14.9 H Lymphocytes # (Manual) 0.6 L PT 46.0 H INR 4.87 H D-Dimer POC ABG pH POC ABG pO2 Sodium Potassium Chloride Carbon Dioxide BUN Glucose POC Glucose 129 H Lactic Acid Calcium Magnesium Total Creatine Kinase C-Reactive Protein 09/20/16 09/20/16 09/20/16 05:03 12:25 18:02 WBC RBC Hgb Hct MCV MCH MCHC RDW Lymph % (Auto) [place] % (Auto) Lymph # [place] # Seg Neutrophils % Seg Neuts % (Manual) Lymphocytes % (Manual) Seg Neutrophils # Seg Neutrophils # Man Lymphocytes # (Manual) PT INR D-Dimer POC ABG pH POC ABG pO2 Sodium 146 H Potassium Chloride 107.5 H Carbon Dioxide BUN 45 H Glucose 129 H POC Glucose 249 H 140 H Lactic Acid Calcium Magnesium Total Creatine Kinase C-Reactive Protein 09/20/16 09/20/16 09/20/16 18:11 18:11 18:11 WBC RBC Hgb Hct MCV MCH MCHC RDW Lymph % (Auto) [place] % (Auto) Lymph # [place] # Seg Neutrophils % Seg Neuts % (Manual) Lymphocytes % (Manual) Seg Neutrophils # Seg Neutrophils # Man Lymphocytes # (Manual) PT INR D-Dimer 567.12 H POC ABG pH POC ABG pO2 Sodium Potassium Chloride Carbon Dioxide BUN Glucose POC Glucose Lactic Acid 2.80 H* Calcium Magnesium Total Creatine Kinase 325 H C-Reactive Protein 09/20/16 09/21/16 09/21/16 23:55 03:38 03:38 WBC 15.5 H RBC 3.60 L Hgb 9.0 L Hct 28.2 L MCV 78 L MCH 25 L MCHC RDW 17.3 H Lymph % (Auto) [place] % (Auto) Lymph # [place] # Seg Neutrophils % Seg Neuts % (Manual) 89.0 H Lymphocytes % (Manual) 6.0 L Seg Neutrophils # Seg Neutrophils # Man 13.8 H Lymphocytes # (Manual) 0.9 L PT 34.5 H INR 3.39 H D-Dimer POC ABG pH POC ABG pO2 Sodium Potassium Chloride Carbon Dioxide BUN Glucose POC Glucose 165 H Lactic Acid Calcium Magnesium Total Creatine Kinase C-Reactive Protein 09/21/16 09/21/16 09/21/16 03:38 05:01 11:30 WBC RBC Hgb Hct MCV MCH MCHC RDW Lymph % (Auto) [place] % (Auto) Lymph # [place] # Seg Neutrophils % Seg Neuts % (Manual) Lymphocytes % (Manual) Seg Neutrophils # Seg Neutrophils # Man Lymphocytes # (Manual) PT INR D-Dimer POC ABG pH POC ABG pO2 Sodium Potassium Chloride Carbon Dioxide BUN 56 H Glucose POC Glucose 117 H 184 H Lactic Acid Calcium 8.0 L Magnesium Total Creatine Kinase C-Reactive Protein 09/21/16 09/21/16 09/22/16 16:40 17:54 00:05 WBC RBC Hgb Hct MCV MCH MCHC RDW Lymph % (Auto) [place] % (Auto) Lymph # [place] # Seg Neutrophils % Seg Neuts % (Manual) Lymphocytes % (Manual) Seg Neutrophils # Seg Neutrophils # Man Lymphocytes # (Manual) PT INR D-Dimer POC ABG pH POC ABG pO2 Sodium Potassium Chloride Carbon Dioxide BUN Glucose POC Glucose 135 H 187 H Lactic Acid 4.10 H* Calcium Magnesium Total Creatine Kinase C-Reactive Protein 09/22/16 09/22/16 09/22/16 06:24 08:00 11:14 WBC 12.1 H RBC Hgb 9.7 L Hct 29.4 L MCV 78 L MCH 26 L MCHC RDW 17.1 H Lymph % (Auto) 4.1 L [place] % (Auto) Lymph # 0.5 L [place] # Seg Neutrophils % 89.3 H Seg Neuts % (Manual) Lymphocytes % (Manual) Seg Neutrophils # 10.8 H Seg Neutrophils # Man Lymphocytes # (Manual) PT 42.1 H INR 4.35 H D-Dimer POC ABG pH POC ABG pO2 Sodium Potassium Chloride Carbon Dioxide BUN Glucose POC Glucose 154 H Lactic Acid Calcium Magnesium Total Creatine Kinase C-Reactive Protein 09/22/16 09/22/16 09/22/16 11:14 11:56 17:28 WBC RBC Hgb Hct MCV MCH MCHC RDW Lymph % (Auto) [place] % (Auto) Lymph # [place] # Seg Neutrophils % Seg Neuts % (Manual) Lymphocytes % (Manual) Seg Neutrophils # Seg Neutrophils # Man Lymphocytes # (Manual) PT INR D-Dimer POC ABG pH POC ABG pO2 Sodium 130 L D Potassium 5.1 H Chloride 94.8 L Carbon Dioxide 21 L BUN 38 H Glucose 124 H POC Glucose 121 H 120 H Lactic Acid Calcium Magnesium Total Creatine Kinase C-Reactive Protein 09/23/16 09/23/16 09/23/16 03:29 05:15 05:15 WBC RBC Hgb 11.3 L Hct 30.1 L MCV 78 L MCH 25 L MCHC RDW 16.8 H Lymph % (Auto) [place] % (Auto) 9.3 H Lymph # [place] # 0.9 H Seg Neutrophils % 72.9 H Seg Neuts % (Manual) Lymphocytes % (Manual) Seg Neutrophils # Seg Neutrophils # Man Lymphocytes # (Manual) PT 16.3 H INR 1.32 H D-Dimer POC ABG pH POC ABG pO2 Sodium 136 L Potassium Chloride 96.2 L Carbon Dioxide BUN 38 H Glucose 107 H POC Glucose Lactic Acid Calcium Magnesium Total Creatine Kinase C-Reactive Protein 09/23/16 09/23/16 09/24/16 12:29 17:45 00:36 WBC RBC Hgb Hct MCV MCH MCHC RDW Lymph % (Auto) [place] % (Auto) Lymph # [place] # Seg Neutrophils % Seg Neuts % (Manual) Lymphocytes % (Manual) Seg Neutrophils # Seg Neutrophils # Man Lymphocytes # (Manual) PT INR D-Dimer POC ABG pH POC ABG pO2 Sodium Potassium Chloride Carbon Dioxide BUN Glucose POC Glucose 136 H 249 H 199 H Lactic Acid Calcium Magnesium Total Creatine Kinase C-Reactive Protein 09/24/16 09/24/16 09/24/16 04:28 06:25 07:54 WBC RBC Hgb Hct MCV MCH MCHC RDW Lymph % (Auto) [place] % (Auto) Lymph # [place] # Seg Neutrophils % Seg Neuts % (Manual) Lymphocytes % (Manual) Seg Neutrophils # Seg Neutrophils # Man Lymphocytes # (Manual) PT INR 1.15 H D-Dimer POC ABG pH POC ABG pO2 Sodium Potassium Chloride Carbon Dioxide BUN Glucose POC Glucose 116 H 117 H Lactic Acid Calcium Magnesium Total Creatine Kinase C-Reactive Protein 09/24/16 09/24/16 08:19 08:19 WBC 13.7 H RBC Hgb 11.0 L Hct 34.6 L MCV 77 L MCH 25 L MCHC RDW 16.6 H Lymph % (Auto) [place] % (Auto) Lymph # [place] # 0.9 H Seg Neutrophils % 77.9 H Seg Neuts % (Manual) Lymphocytes % (Manual) Seg Neutrophils # 10.6 H Seg Neutrophils # Man Lymphocytes # (Manual) PT INR D-Dimer POC ABG pH POC ABG pO2 Sodium 131 L Potassium Chloride 94.4 L Carbon Dioxide 20 L BUN 36 H Glucose 144 H POC Glucose Lactic Acid Calcium Magnesium Total Creatine Kinase C-Reactive Protein
--- NOTE | 2016-09-24 16:46 | Progress Note ---
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 Hospitalist Physical - Physical exam Narrative exam: Patient is on intranasal oxygen The patient appeared well nourished and normally developed. Vital signs as documented. Head exam is unremarkable. No scleral icterus . Neck is without jugular venous distension, thyromegaly, or carotid bruits. Lungs are clear to auscultation. Cardiac exam reveals regular rate and Rhythm. First and second heart sounds normal. No murmurs, rubs or gallops. Abdominal exam reveals normal bowel sounds, no masses, no organomegaly and no aortic enlargement. Extremities are nonedematous and both femoral and pedal pulses are normal. 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 - Constitutional Vitals: Temp Pulse Resp BP Pulse Ox 98.3 F 93 H 20 99/57 99 09/24/16 09:38 09/24/16 10:03 09/24/16 09:38 09/24/16 10:03 09/23/16 22:00 General appearance: Present: no acute distress, well-nourished Results - Labs CBC & Chem 7: 09/24/16 08:19 09/24/16 08:19 Labs: Laboratory Last Values WBC 13.7 K/mm3 (4.5-11.0) H 09/24/16 08:19 RBC 4.48 M/mm3 (3.65-5.03) 09/24/16 08:19 Hgb 11.0 gm/dl (11.8-15.2) L 09/24/16 08:19 Hct 34.6 % (35.5-45.6) L 09/24/16 08:19 MCV 77 fl (84-94) L 09/24/16 08:19 MCH 25 pg (28-32) L 09/24/16 08:19 MCHC 32 % (32-34) 09/24/16 08:19 RDW 16.6 % (13.2-15.2) H 09/24/16 08:19 Plt Count 337 K/mm3 (140-440) 09/24/16 08:19 Lymph % (Auto) 14.5 % (13.4-35.0) 09/24/16 08:19 [place] % (Auto) 6.9 % (0.0-7.3) 09/24/16 08:19 Eos % (Auto) 0.5 % (0.0-4.3) 09/24/16 08:19 Baso % (Auto) 0.2 % (0.0-1.8) 09/24/16 08:19 Lymph # 2.0 K/mm3 (1.2-5.4) 09/24/16 08:19 [place] # 0.9 K/mm3 (0.0-0.8) H 09/24/16 08:19 Eos # 0.1 K/mm3 (0.0-0.4) 09/24/16 08:19 Baso # 0.0 K/mm3 (0.0-0.1) 09/24/16 08:19 Add Manual Diff Complete 09/21/16 03:38 Total Counted 100 09/21/16 03:38 Seg Neutrophils % 77.9 % (40.0-70.0) H 09/24/16 08:19 Seg Neuts % (Manual) 89.0 % (40.0-70.0) H 09/21/16 03:38 Band Neutrophils % 0 % 09/21/16 03:38 Lymphocytes % (Manual) 6.0 % (13.4-35.0) L 09/21/16 03:38 Reactive Lymphs % (Man) 0 % 09/21/16 03:38 Monocytes % (Manual) 5.0 % (0.0-7.3) 09/21/16 03:38 Eosinophils % (Manual) 0 % (0.0-4.3) 09/21/16 03:38 Basophils % (Manual) 0 % (0.0-1.8) 09/21/16 03:38 Metamyelocytes % 0 % 09/21/16 03:38 Myelocytes % 0 % 09/21/16 03:38 Promyelocytes % 0 % 09/21/16 03:38 Blast Cells % 0 % 09/21/16 03:38 Nucleated RBC % Not Reportable 09/21/16 03:38 Seg Neutrophils # 10.6 K/mm3 (1.8-7.7) H 09/24/16 08:19 Seg Neutrophils # Man 13.8 K/mm3 (1.8-7.7) H 09/21/16 03:38 Band Neutrophils # 0.0 K/mm3 09/21/16 03:38 Lymphocytes # (Manual) 0.9 K/mm3 (1.2-5.4) L 09/21/16 03:38 Abs React Lymphs (Man) 0.0 K/mm3 09/21/16 03:38 Monocytes # (Manual) 0.8 K/mm3 (0.0-0.8) 09/21/16 03:38 Eosinophils # (Manual) 0.0 K/mm3 (0.0-0.4) 09/21/16 03:38 Basophils # (Manual) 0.0 K/mm3 (0.0-0.1) 09/21/16 03:38 Metamyelocytes # 0.0 K/mm3 09/21/16 03:38 Myelocytes # 0.0 K/mm3 09/21/16 03:38 Promyelocytes # 0.0 K/mm3 09/21/16 03:38 Blast Cells # 0.0 K/mm3 09/21/16 03:38 WBC Morphology Not Reportable 09/21/16 03:38 Hypersegmented Neuts Not Reportable 09/21/16 03:38 Hyposegmented Neuts Not Reportable 09/21/16 03:38 Hypogranular Neuts Not Reportable 09/21/16 03:38 Smudge Cells Not Reportable 09/21/16 03:38 Toxic Granulation Not Reportable 09/21/16 03:38 Toxic Vacuolation Not Reportable 09/21/16 03:38 Dohle Bodies Not Reportable 09/21/16 03:38 Pelger-Huet Anomaly Not Reportable 09/21/16 03:38 Yvonne Rods Not Reportable 09/21/16 03:38 Platelet Estimate Consistent w auto 09/21/16 03:38 Clumped Platelets Not Reportable 09/21/16 03:38 Plt Clumps, EDTA Not Reportable 09/21/16 03:38 Large Platelets Not Reportable 09/21/16 03:38 Giant Platelets Not Reportable 09/21/16 03:38 Platelet Satelliting Not Reportable 09/21/16 03:38 Plt Morphology Comment Not Reportable 09/21/16 03:38 RBC Morphology Not Reportable 09/21/16 03:38 Dimorphic RBCs Not Reportable 09/21/16 03:38 Polychromasia Not Reportable 09/21/16 03:38 Hypochromasia 1+ 09/21/16 03:38 Poikilocytosis Not Reportable 09/21/16 03:38 Anisocytosis 1+ 09/21/16 03:38 Microcytosis Not Reportable 09/21/16 03:38 Macrocytosis Not Reportable 09/21/16 03:38 Spherocytes Not Reportable 09/21/16 03:38 Pappenheimer Bodies Not Reportable 09/21/16 03:38 Sickle Cells Not Reportable 09/21/16 03:38 Target Cells Not Reportable 09/21/16 03:38 Tear Drop Cells Not Reportable 09/21/16 03:38 Ovalocytes Not Reportable 09/21/16 03:38 Helmet Cells Not Reportable 09/21/16 03:38 Ngo-Mclouth Bodies Not Reportable 09/21/16 03:38 Union Rings Not Reportable 09/21/16 03:38 Firth Cells Not Reportable 09/21/16 03:38 Bite Cells Not Reportable 09/21/16 03:38 Crenated Cell Not Reportable 09/21/16 03:38 Elliptocytes Not Reportable 09/21/16 03:38 Acanthocytes (Spur) Not Reportable 09/21/16 03:38 Rouleaux Not Reportable 09/21/16 03:38 Hemoglobin C Crystals Not Reportable 09/21/16 03:38 Schistocytes Not Reportable 09/21/16 03:38 Malaria parasites Not Reportable 09/21/16 03:38 Miguel Angel Bodies Not Reportable 09/21/16 03:38 Hem Pathologist Commnt No 09/21/16 03:38 PT 14.6 Sec. (12.2-14.9) 09/24/16 04:28 INR 1.15 (0.87-1.13) H 09/24/16 04:28 APTT 41.8 Sec. (24.2-36.6) H 09/17/16 18:13 D-Dimer 567.12 ng/mlDDU (0-234) H 09/20/16 18:11 POC ABG pH 7.415 (7.35-7.45) 09/20/16 16:47 POC ABG pCO2 37.1 (35-45) 09/20/16 16:47 POC ABG pO2 105 (80-105) 09/20/16 16:47 POC ABG HCO3 23.8 09/20/16 16:47 POC ABG Total CO2 25 09/20/16 16:47 POC ABG O2 Sat 98 09/20/16 16:47 POC ABG Base Excess -1 09/20/16 16:47 FiO2 28 % 09/20/16 16:47 Sodium 131 mmol/L (137-145) L 09/24/16 08:19 Potassium 4.5 mmol/L (3.6-5.0) 09/24/16 08:19 Chloride 94.4 mmol/L (98-107) L 09/24/16 08:19 Carbon Dioxide 20 mmol/L (22-30) L 09/24/16 08:19 Anion Gap 21 mmol/L 09/24/16 08:19 BUN 36 mg/dL (9-20) H 09/24/16 08:19 Creatinine 1.4 mg/dL (0.8-1.5) 09/24/16 08:19 Estimated GFR 59 ml/min 09/24/16 08:19 BUN/Creatinine Ratio 25.71 % 09/24/16 08:19 Glucose 144 mg/dL (75-100) H 09/24/16 08:19 POC Glucose 144 (70-105) H 09/24/16 16:25 Hemoglobin A1c 5.7 % (4-6) 09/17/16 18:13 Lactic Acid 4.10 mmol/L (0.7-2.0) H* 09/21/16 17:54 Calcium 8.7 mg/dL (8.4-10.2) 09/24/16 08:19 Phosphorus 3.90 mg/dL (2.5-4.5) 09/18/16 03:21 Magnesium 2.90 mg/dL (1.7-2.3) H 09/18/16 03:21 Total Bilirubin 0.40 mg/dL (0.1-1.2) 09/17/16 18:13 AST 32 units/L (5-40) 09/17/16 18:13 ALT 12 units/L (7-56) 09/17/16 18:13 Alkaline Phosphatase 126 units/L (35-129) 09/17/16 18:13 Ammonia 27.0 umol/L (25-60) 09/17/16 19:15 Total Creatine Kinase 325 units/L (55-170) H 09/20/16 18:11 CK-MB (CK-2) 2.2 ng/mL (0.0-4.0) 09/20/16 18:11 CK-MB (CK-2) Rel Index 0.6 (0-4) 09/20/16 18:11 Troponin T < 0.010 ng/mL (0.00-0.029) 09/20/16 18:11 C-Reactive Protein 9.30 mg/dL (0.00-1.30) H 09/18/16 03:21 Total Protein 7.2 g/dL (6.3-8.2) 09/17/16 18:13 Albumin 4.0 g/dL (3.9-5) 09/17/16 18:13 Albumin/Globulin Ratio 1.3 % 09/17/16 18:13 Triglycerides 98 mg/dL (2-149) 09/17/16 18:13 Cholesterol 139 mg/dL (50-199) 09/17/16 18:13 LDL Cholesterol Direct 49 mg/dL (50-130) L 09/17/16 18:13 HDL Cholesterol 71 mg/dL (40-59) H 09/17/16 18:13 Cholesterol/HDL Ratio 1.95 % 09/17/16 18:13 TSH 0.519 mlU/mL (0.270-4.200) 09/17/16 19:15 Urine Color Yellow (Yellow) 09/17/16 18:43 Urine Turbidity Clear (Clear) 09/17/16 18:43 Urine pH 5.0 (5.0-7.0) 09/17/16 18:43 Ur Specific [place] 1.014 (1.003-1.030) 09/17/16 18:43 Urine Protein <15 mg/dl mg/dL (Negative) 09/17/16 18:43 Urine Glucose (UA) Neg mg/dL (Negative) 09/17/16 18:43 Urine Ketones Neg mg/dL (Negative) 09/17/16 18:43 Urine Blood Sm (Negative) 09/17/16 18:43 Urine Nitrite Neg (Negative) 09/17/16 18:43 Urine Bilirubin Neg (Negative) 09/17/16 18:43 Urine Urobilinogen < 2.0 mg/dL (<2.0) 09/17/16 18:43 Ur Leukocyte Esterase Neg (Negative) 09/17/16 18:43 Urine WBC (Auto) < 1.0 /HPF (0.0-6.0) 09/17/16 18:43 Urine RBC (Auto) 1.0 /HPF (0.0-6.0) 09/17/16 18:43 Salicylates < 0.3 mg/dL (2.8-20.0) L 09/17/16 19:15 Acetaminophen < 15.0 ug/mL (10.0-30.0) 09/17/16 18:13 Plasma/Serum Alcohol < 0.01 gm% (0-0.07) 09/17/16 19:15
[2016-09-24] MEDS ORDERED: COUMADIN PO SCH (17:30)
[2016-09-25] MEDS: NOVOLOG SUB-Q SCH ×4 (00:25→18:02)
[2016-09-25] MEDS: DUONEB *Not for PRN Use IH SCH ×4 (01:44→21:05)
[2016-09-25 05:05] LABS: Basophils % (Auto) 0.2 % (0.0-1.8); Eosinophils % (Auto) 0.3 % (0.0-4.3); Hematocrit 36.3 % (35.5-45.6); Hemoglobin 11.5 gm/dl (11.8-15.2); Mean Corpuscular HGB Conc 32 % (32-34); Mean Corpuscular Volume 79 fl (84-94); Platelet Count 334 K/mm3 (140-440); Red Blood Count 4.61 M/mm3 (3.65-5.03); Red Cell Distribution Width 16.9 % (13.2-15.2); White Blood Count 14.2 K/mm3 (4.5-11.0)
[2016-09-25 05:11] LABS: Mean Corpuscular Hemoglobin 25 pg (28-32)
[2016-09-25 05:15] LABS: INR 1.12 (0.87-1.13)
[2016-09-25 05:21] LABS: BUN/Creatinine Ratio 28.33; Blood Urea Nitrogen 34 mg/dL (9-20); Calcium 8.9 mg/dL (8.4-10.2); Carbon Dioxide 24 mmol/L (22-30); Glucose 116 mg/dL (75-100); Sodium 133 mmol/L (137-145)
[2016-09-25 05:22] LABS: Anion Gap 21 mmol/L; Chloride 92.7 mmol/L (98-107); Potassium 4.2 mmol/L (3.6-5.0)
[2016-09-25] MEDS: LEVEMIR SUB-Q SCH (09:28)
[2016-09-25] MEDS: Centrum Liq PO SCH (09:28)
[2016-09-25] MEDS: DELTASONE PO SCH (09:29)
[2016-09-25] MEDS: LEVAQUIN PO SCH (09:29)
[2016-09-25] MEDS: PEPCID PO SCH ×2 (09:30→23:12)
[2016-09-25] MEDS: LOPRESSOR PO SCH ×3 (09:31→23:12)
[2016-09-25] MEDS: HCTZ PO SCH (09:31)
[2016-09-25] MEDS: ZESTRIL PO SCH (09:32)
--- NOTE | 2016-09-25 14:27 | Progress Note ---
Subjective Date of service: 09/25/16 Principal diagnosis: Acute Hypoxemic Respiratory Failure s/p MVS; MICHAEL Interval history: Seen and examined at bedside; 24 hour events reviewed; nursing and respiratory care staff consulted; no adverse overnight events reported to me; Objective Vital Signs - 12hr 09/25/16 09/25/16 09/25/16 05:34 07:30 09:31 Temperature Pulse Rate 104 H 106 H Pulse Rate [ 105 H Anterior Bilateral Throughout] Respiratory Rate Respiratory 18 Rate [Anterior Bilateral Throughout] Blood Pressure 124/64 O2 Sat by Pulse Oximetry 09/25/16 09/25/16 09:32 10:00 Temperature 98.1 F Pulse Rate 106 H 105 H Pulse Rate [ Anterior Bilateral Throughout] Respiratory 21 Rate Respiratory Rate [Anterior Bilateral Throughout] Blood Pressure 124/64 124/64 O2 Sat by Pulse 99 Oximetry Constitutional: no acute distress, alert Eyes: non-icteric ENT: oropharynx moist Neck: supple, no lymphadenopathy Effort: mildly labored Ascultation: Bilateral: diminished breath sounds, wheezes (faint exp in bases), rales (scant bilaterally) Cardiovascular: regular rate and rhythm, other (tachycardia in 120's to 130's) Gastrointestinal: normoactive bowel sounds, soft, non-tender, non-distended Integumentary: normal Extremities: no cyanosis, no edema, pulses normal, no ischemia or petechiae Neurologic: normal mental status, non-focal exam, pupils equal and round, motor strength normal and Psychiatric: mood appropriate, affect normal CBC and BMP: 09/25/16 04:48 09/25/16 04:48 ABG, PT/INR, D-dimer: ABG POC ABG pH 7.415 (7.35-7.45) 09/20/16 16:47 POC ABG pCO2 37.1 (35-45) 09/20/16 16:47 POC ABG pO2 105 (80-105) 09/20/16 16:47 POC ABG HCO3 23.8 09/20/16 16:47 POC ABG Total CO2 25 09/20/16 16:47 POC ABG O2 Sat 98 09/20/16 16:47 PT/INR, D-dimer PT 14.3 Sec. (12.2-14.9) 09/25/16 04:48 INR 1.12 (0.87-1.13) 09/25/16 04:48 D-Dimer 567.12 ng/mlDDU (0-234) H 09/20/16 18:11 Abnormal lab findings: Abnormal Labs 09/17/16 09/17/16 09/18/16 20:58 22:37 01:02 WBC RBC Hgb Hct MCV MCH MCHC RDW Lymph % (Auto) [place] % (Auto) Lymph # [place] # Seg Neutrophils % Seg Neuts % (Manual) Lymphocytes % (Manual) Seg Neutrophils # Seg Neutrophils # Man Lymphocytes # (Manual) PT INR D-Dimer POC ABG pH 7.156 L POC ABG pO2 357 H 147 H Sodium Potassium Chloride Carbon Dioxide BUN Glucose POC Glucose 225 H Lactic Acid Calcium Magnesium Total Creatine Kinase C-Reactive Protein 09/18/16 09/18/16 09/18/16 03:21 03:21 03:21 WBC RBC 3.56 L Hgb 9.1 L Hct 27.9 L MCV 78 L MCH 26 L MCHC RDW 17.0 H Lymph % (Auto) [place] % (Auto) Lymph # [place] # Seg Neutrophils % Seg Neuts % (Manual) 98.0 H Lymphocytes % (Manual) 1.0 L Seg Neutrophils # Seg Neutrophils # Man 10.2 H Lymphocytes # (Manual) 0.1 L PT 29.7 H INR 2.65 H D-Dimer POC ABG pH POC ABG pO2 Sodium Potassium Chloride Carbon Dioxide 21 L D BUN 55 H Glucose 146 H POC Glucose Lactic Acid Calcium Magnesium Total Creatine Kinase C-Reactive Protein 09/18/16 09/18/16 09/18/16 03:21 12:17 17:37 WBC RBC Hgb Hct MCV MCH MCHC RDW Lymph % (Auto) [place] % (Auto) Lymph # [place] # Seg Neutrophils % Seg Neuts % (Manual) Lymphocytes % (Manual) Seg Neutrophils # Seg Neutrophils # Man Lymphocytes # (Manual) PT INR D-Dimer POC ABG pH POC ABG pO2 Sodium Potassium Chloride Carbon Dioxide BUN Glucose POC Glucose 206 H 189 H Lactic Acid Calcium Magnesium 2.90 H Total Creatine Kinase C-Reactive Protein 9.30 H 09/18/16 09/19/16 09/19/16 23:23 04:19 04:19 WBC 13.2 H RBC 3.51 L Hgb 9.0 L Hct 27.4 L MCV 78 L MCH 26 L MCHC RDW 17.1 H Lymph % (Auto) [place] % (Auto) Lymph # [place] # Seg Neutrophils % Seg Neuts % (Manual) 86.0 H Lymphocytes % (Manual) 9.0 L Seg Neutrophils # Seg Neutrophils # Man 11.4 H Lymphocytes # (Manual) PT 40.3 H INR 3.89 H D-Dimer POC ABG pH POC ABG pO2 Sodium Potassium Chloride Carbon Dioxide BUN Glucose POC Glucose 191 H Lactic Acid Calcium Magnesium Total Creatine Kinase C-Reactive Protein 09/19/16 09/19/16 09/19/16 04:19 04:40 05:22 WBC RBC Hgb Hct MCV MCH MCHC RDW Lymph % (Auto) [place] % (Auto) Lymph # [place] # Seg Neutrophils % Seg Neuts % (Manual) Lymphocytes % (Manual) Seg Neutrophils # Seg Neutrophils # Man Lymphocytes # (Manual) PT INR D-Dimer POC ABG pH POC ABG pO2 125 H Sodium Potassium Chloride 108.0 H Carbon Dioxide BUN 48 H Glucose 206 H POC Glucose 222 H Lactic Acid Calcium Magnesium Total Creatine Kinase C-Reactive Protein 09/19/16 09/19/16 09/19/16 11:59 17:58 23:43 WBC RBC Hgb Hct MCV MCH MCHC RDW Lymph % (Auto) [place] % (Auto) Lymph # [place] # Seg Neutrophils % Seg Neuts % (Manual) Lymphocytes % (Manual) Seg Neutrophils # Seg Neutrophils # Man Lymphocytes # (Manual) PT INR D-Dimer POC ABG pH POC ABG pO2 Sodium Potassium Chloride Carbon Dioxide BUN Glucose POC Glucose 162 H 201 H 236 H Lactic Acid Calcium Magnesium Total Creatine Kinase C-Reactive Protein 09/20/16 09/20/16 09/20/16 04:04 05:03 05:03 WBC 15.9 H RBC Hgb 9.5 L Hct 30.5 L MCV 81 L MCH 25 L MCHC 31 L RDW 17.6 H Lymph % (Auto) [place] % (Auto) Lymph # [place] # Seg Neutrophils % Seg Neuts % (Manual) 94.0 H Lymphocytes % (Manual) 4.0 L Seg Neutrophils # Seg Neutrophils # Man 14.9 H Lymphocytes # (Manual) 0.6 L PT 46.0 H INR 4.87 H D-Dimer POC ABG pH POC ABG pO2 Sodium Potassium Chloride Carbon Dioxide BUN Glucose POC Glucose 129 H Lactic Acid Calcium Magnesium Total Creatine Kinase C-Reactive Protein 09/20/16 09/20/16 09/20/16 05:03 12:25 18:02 WBC RBC Hgb Hct MCV MCH MCHC RDW Lymph % (Auto) [place] % (Auto) Lymph # [place] # Seg Neutrophils % Seg Neuts % (Manual) Lymphocytes % (Manual) Seg Neutrophils # Seg Neutrophils # Man Lymphocytes # (Manual) PT INR D-Dimer POC ABG pH POC ABG pO2 Sodium 146 H Potassium Chloride 107.5 H Carbon Dioxide BUN 45 H Glucose 129 H POC Glucose 249 H 140 H Lactic Acid Calcium Magnesium Total Creatine Kinase C-Reactive Protein 09/20/16 09/20/16 09/20/16 18:11 18:11 18:11 WBC RBC Hgb Hct MCV MCH MCHC RDW Lymph % (Auto) [place] % (Auto) Lymph # [place] # Seg Neutrophils % Seg Neuts % (Manual) Lymphocytes % (Manual) Seg Neutrophils # Seg Neutrophils # Man Lymphocytes # (Manual) PT INR D-Dimer 567.12 H POC ABG pH POC ABG pO2 Sodium Potassium Chloride Carbon Dioxide BUN Glucose POC Glucose Lactic Acid 2.80 H* Calcium Magnesium Total Creatine Kinase 325 H C-Reactive Protein 09/20/16 09/21/16 09/21/16 23:55 03:38 03:38 WBC 15.5 H RBC 3.60 L Hgb 9.0 L Hct 28.2 L MCV 78 L MCH 25 L MCHC RDW 17.3 H Lymph % (Auto) [place] % (Auto) Lymph # [place] # Seg Neutrophils % Seg Neuts % (Manual) 89.0 H Lymphocytes % (Manual) 6.0 L Seg Neutrophils # Seg Neutrophils # Man 13.8 H Lymphocytes # (Manual) 0.9 L PT 34.5 H INR 3.39 H D-Dimer POC ABG pH POC ABG pO2 Sodium Potassium Chloride Carbon Dioxide BUN Glucose POC Glucose 165 H Lactic Acid Calcium Magnesium Total Creatine Kinase C-Reactive Protein 09/21/16 09/21/16 09/21/16 03:38 05:01 11:30 WBC RBC Hgb Hct MCV MCH MCHC RDW Lymph % (Auto) [place] % (Auto) Lymph # [place] # Seg Neutrophils % Seg Neuts % (Manual) Lymphocytes % (Manual) Seg Neutrophils # Seg Neutrophils # Man Lymphocytes # (Manual) PT INR D-Dimer POC ABG pH POC ABG pO2 Sodium Potassium Chloride Carbon Dioxide BUN 56 H Glucose POC Glucose 117 H 184 H Lactic Acid Calcium 8.0 L Magnesium Total Creatine Kinase C-Reactive Protein 09/21/16 09/21/16 09/22/16 16:40 17:54 00:05 WBC RBC Hgb Hct MCV MCH MCHC RDW Lymph % (Auto) [place] % (Auto) Lymph # [place] # Seg Neutrophils % Seg Neuts % (Manual) Lymphocytes % (Manual) Seg Neutrophils # Seg Neutrophils # Man Lymphocytes # (Manual) PT INR D-Dimer POC ABG pH POC ABG pO2 Sodium Potassium Chloride Carbon Dioxide BUN Glucose POC Glucose 135 H 187 H Lactic Acid 4.10 H* Calcium Magnesium Total Creatine Kinase C-Reactive Protein 09/22/16 09/22/16 09/22/16 06:24 08:00 11:14 WBC 12.1 H RBC Hgb 9.7 L Hct 29.4 L MCV 78 L MCH 26 L MCHC RDW 17.1 H Lymph % (Auto) 4.1 L [place] % (Auto) Lymph # 0.5 L [place] # Seg Neutrophils % 89.3 H Seg Neuts % (Manual) Lymphocytes % (Manual) Seg Neutrophils # 10.8 H Seg Neutrophils # Man Lymphocytes # (Manual) PT 42.1 H INR 4.35 H D-Dimer POC ABG pH POC ABG pO2 Sodium Potassium Chloride Carbon Dioxide BUN Glucose POC Glucose 154 H Lactic Acid Calcium Magnesium Total Creatine Kinase C-Reactive Protein 09/22/16 09/22/16 09/22/16 11:14 11:56 17:28 WBC RBC Hgb Hct MCV MCH MCHC RDW Lymph % (Auto) [place] % (Auto) Lymph # [place] # Seg Neutrophils % Seg Neuts % (Manual) Lymphocytes % (Manual) Seg Neutrophils # Seg Neutrophils # Man Lymphocytes # (Manual) PT INR D-Dimer POC ABG pH POC ABG pO2 Sodium 130 L D Potassium 5.1 H Chloride 94.8 L Carbon Dioxide 21 L BUN 38 H Glucose 124 H POC Glucose 121 H 120 H Lactic Acid Calcium Magnesium Total Creatine Kinase C-Reactive Protein 09/23/16 09/23/16 09/23/16 03:29 05:15 05:15 WBC RBC Hgb 11.3 L Hct 30.1 L MCV 78 L MCH 25 L MCHC RDW 16.8 H Lymph % (Auto) [place] % (Auto) 9.3 H Lymph # [place] # 0.9 H Seg Neutrophils % 72.9 H Seg Neuts % (Manual) Lymphocytes % (Manual) Seg Neutrophils # Seg Neutrophils # Man Lymphocytes # (Manual) PT 16.3 H INR 1.32 H D-Dimer POC ABG pH POC ABG pO2 Sodium 136 L Potassium Chloride 96.2 L Carbon Dioxide BUN 38 H Glucose 107 H POC Glucose Lactic Acid Calcium Magnesium Total Creatine Kinase C-Reactive Protein 09/23/16 09/23/16 09/24/16 12:29 17:45 00:36 WBC RBC Hgb Hct MCV MCH MCHC RDW Lymph % (Auto) [place] % (Auto) Lymph # [place] # Seg Neutrophils % Seg Neuts % (Manual) Lymphocytes % (Manual) Seg Neutrophils # Seg Neutrophils # Man Lymphocytes # (Manual) PT INR D-Dimer POC ABG pH POC ABG pO2 Sodium Potassium Chloride Carbon Dioxide BUN Glucose POC Glucose 136 H 249 H 199 H Lactic Acid Calcium Magnesium Total Creatine Kinase C-Reactive Protein 09/24/16 09/24/16 09/24/16 04:28 06:25 07:54 WBC RBC Hgb Hct MCV MCH MCHC RDW Lymph % (Auto) [place] % (Auto) Lymph # [place] # Seg Neutrophils % Seg Neuts % (Manual) Lymphocytes % (Manual) Seg Neutrophils # Seg Neutrophils # Man Lymphocytes # (Manual) PT INR 1.15 H D-Dimer POC ABG pH POC ABG pO2 Sodium Potassium Chloride Carbon Dioxide BUN Glucose POC Glucose 116 H 117 H Lactic Acid Calcium Magnesium Total Creatine Kinase C-Reactive Protein 09/24/16 09/24/16 09/24/16 08:19 08:19 16:25 WBC 13.7 H RBC Hgb 11.0 L Hct 34.6 L MCV 77 L MCH 25 L MCHC RDW 16.6 H Lymph % (Auto) [place] % (Auto) Lymph # [place] # 0.9 H Seg Neutrophils % 77.9 H Seg Neuts % (Manual) Lymphocytes % (Manual) Seg Neutrophils # 10.6 H Seg Neutrophils # Man Lymphocytes # (Manual) PT INR D-Dimer POC ABG pH POC ABG pO2 Sodium 131 L Potassium Chloride 94.4 L Carbon Dioxide 20 L BUN 36 H Glucose 144 H POC Glucose 144 H Lactic Acid Calcium Magnesium Total Creatine Kinase C-Reactive Protein 09/24/16 09/25/16 09/25/16 21:12 04:48 04:48 WBC 14.2 H RBC Hgb 11.5 L Hct MCV 79 L MCH 25 L MCHC RDW 16.9 H Lymph % (Auto) 11.0 L [place] % (Auto) 8.7 H Lymph # [place] # 1.2 H Seg Neutrophils % 79.8 H Seg Neuts % (Manual) Lymphocytes % (Manual) Seg Neutrophils # 11.3 H Seg Neutrophils # Man Lymphocytes # (Manual) PT INR D-Dimer POC ABG pH POC ABG pO2 Sodium 133 L Potassium Chloride 92.7 L Carbon Dioxide BUN 34 H Glucose 116 H POC Glucose 225 H Lactic Acid Calcium Magnesium Total Creatine Kinase C-Reactive Protein 09/25/16 09/25/16 06:27 11:29 WBC RBC Hgb Hct MCV MCH MCHC RDW Lymph % (Auto) [place] % (Auto) Lymph # [place] # Seg Neutrophils % Seg Neuts % (Manual) Lymphocytes % (Manual) Seg Neutrophils # Seg Neutrophils # Man Lymphocytes # (Manual) PT INR D-Dimer POC ABG pH POC ABG pO2 Sodium Potassium Chloride Carbon Dioxide BUN Glucose POC Glucose 108 H 183 H Lactic Acid Calcium Magnesium Total Creatine Kinase C-Reactive Protein
[2016-09-25] MEDS ORDERED: COUMADIN PO SCH (17:00)
--- NOTE | 2016-09-25 18:00 | Progress Note ---
Assessment and Plan Assessment and plan: Acute hypoxic respiratory failure - Patient was intubated and patient was extubated on Friday - Improving COPD exacerbation - Patient is on prednisone, nebulizer treatment, Levaquin Diabetes mellitus type 2 - Patient is on low-dose sliding-scale insulin - Accu-Chek Acute kidney injury - Resolved Hypertension - On when necessary hydralazine History of DVT/PE - Patient's INR is subtherapeutic -Pharmacy consult to adjust the dose DVT prophylaxis - Patient is on warfarin Disposition - Patient will be discharged to home with home health. patient will not be accepted by acute rehab hence the patient has been in rehab in the last 2 months. History Interval history: Patient was seen and evaluated this morning, he said he was able to walk around with physical therapy, no shortness of breath. Hospitalist Physical - Physical exam Narrative exam: Patient is on intranasal oxygen The patient appeared well nourished and normally developed. Vital signs as documented. Head exam is unremarkable. No scleral icterus . Neck is without jugular venous distension, thyromegaly, or carotid bruits. Lungs are clear to auscultation. Cardiac exam reveals regular rate and Rhythm. First and second heart sounds normal. No murmurs, rubs or gallops. Abdominal exam reveals normal bowel sounds, no masses, no organomegaly and no aortic enlargement. Extremities are nonedematous and both femoral and pedal pulses are normal. RN WOMEN SERVICES: Alert and oriented 3. - Constitutional Vitals: Temp Pulse Resp BP Pulse Ox 98.1 F 104 H 17 124/64 99 09/25/16 10:00 09/25/16 14:43 09/25/16 14:43 09/25/16 10:00 09/25/16 10:00 General appearance: Present: no acute distress, well-nourished Results - Labs CBC & Chem 7: 09/25/16 04:48 09/25/16 04:48 Labs: Laboratory Last Values WBC 14.2 K/mm3 (4.5-11.0) H 09/25/16 04:48 RBC 4.61 M/mm3 (3.65-5.03) 09/25/16 04:48 Hgb 11.5 gm/dl (11.8-15.2) L 09/25/16 04:48 Hct 36.3 % (35.5-45.6) 09/25/16 04:48 MCV 79 fl (84-94) L 09/25/16 04:48 MCH 25 pg (28-32) L 09/25/16 04:48 MCHC 32 % (32-34) 09/25/16 04:48 RDW 16.9 % (13.2-15.2) H 09/25/16 04:48 Plt Count 334 K/mm3 (140-440) 09/25/16 04:48 Lymph % (Auto) 11.0 % (13.4-35.0) L 09/25/16 04:48 Forrest % (Auto) 8.7 % (0.0-7.3) H 09/25/16 04:48 Eos % (Auto) 0.3 % (0.0-4.3) 09/25/16 04:48 Baso % (Auto) 0.2 % (0.0-1.8) 09/25/16 04:48 Lymph # 1.6 K/mm3 (1.2-5.4) 09/25/16 04:48 Forrest # 1.2 K/mm3 (0.0-0.8) H 09/25/16 04:48 Eos # 0.0 K/mm3 (0.0-0.4) 09/25/16 04:48 Baso # 0.0 K/mm3 (0.0-0.1) 09/25/16 04:48 Add Manual Diff Complete 09/21/16 03:38 Total Counted 100 09/21/16 03:38 Seg Neutrophils % 79.8 % (40.0-70.0) H 09/25/16 04:48 Seg Neuts % (Manual) 89.0 % (40.0-70.0) H 09/21/16 03:38 Band Neutrophils % 0 % 09/21/16 03:38 Lymphocytes % (Manual) 6.0 % (13.4-35.0) L 09/21/16 03:38 Reactive Lymphs % (Man) 0 % 09/21/16 03:38 Monocytes % (Manual) 5.0 % (0.0-7.3) 09/21/16 03:38 Eosinophils % (Manual) 0 % (0.0-4.3) 09/21/16 03:38 Basophils % (Manual) 0 % (0.0-1.8) 09/21/16 03:38 Metamyelocytes % 0 % 09/21/16 03:38 Myelocytes % 0 % 09/21/16 03:38 Promyelocytes % 0 % 09/21/16 03:38 Blast Cells % 0 % 09/21/16 03:38 Nucleated RBC % Not Reportable 09/21/16 03:38 Seg Neutrophils # 11.3 K/mm3 (1.8-7.7) H 09/25/16 04:48 Seg Neutrophils # Man 13.8 K/mm3 (1.8-7.7) H 09/21/16 03:38 Band Neutrophils # 0.0 K/mm3 09/21/16 03:38 Lymphocytes # (Manual) 0.9 K/mm3 (1.2-5.4) L 09/21/16 03:38 Abs React Lymphs (Man) 0.0 K/mm3 09/21/16 03:38 Monocytes # (Manual) 0.8 K/mm3 (0.0-0.8) 09/21/16 03:38 Eosinophils # (Manual) 0.0 K/mm3 (0.0-0.4) 09/21/16 03:38 Basophils # (Manual) 0.0 K/mm3 (0.0-0.1) 09/21/16 03:38 Metamyelocytes # 0.0 K/mm3 09/21/16 03:38 Myelocytes # 0.0 K/mm3 09/21/16 03:38 Promyelocytes # 0.0 K/mm3 09/21/16 03:38 Blast Cells # 0.0 K/mm3 09/21/16 03:38 WBC Morphology Not Reportable 09/21/16 03:38 Hypersegmented Neuts Not Reportable 09/21/16 03:38 Hyposegmented Neuts Not Reportable 09/21/16 03:38 Hypogranular Neuts Not Reportable 09/21/16 03:38 Smudge Cells Not Reportable 09/21/16 03:38 Toxic Granulation Not Reportable 09/21/16 03:38 Toxic Vacuolation Not Reportable 09/21/16 03:38 Dohle Bodies Not Reportable 09/21/16 03:38 Pelger-Huet Anomaly Not Reportable 09/21/16 03:38 Yvonne Rods Not Reportable 09/21/16 03:38 Platelet Estimate Consistent w auto 09/21/16 03:38 Clumped Platelets Not Reportable 09/21/16 03:38 Plt Clumps, EDTA Not Reportable 09/21/16 03:38 Large Platelets Not Reportable 09/21/16 03:38 Giant Platelets Not Reportable 09/21/16 03:38 Platelet Satelliting Not Reportable 09/21/16 03:38 Plt Morphology Comment Not Reportable 09/21/16 03:38 RBC Morphology Not Reportable 09/21/16 03:38 Dimorphic RBCs Not Reportable 09/21/16 03:38 Polychromasia Not Reportable 09/21/16 03:38 Hypochromasia 1+ 09/21/16 03:38 Poikilocytosis Not Reportable 09/21/16 03:38 Anisocytosis 1+ 09/21/16 03:38 Microcytosis Not Reportable 09/21/16 03:38 Macrocytosis Not Reportable 09/21/16 03:38 Spherocytes Not Reportable 09/21/16 03:38 Pappenheimer Bodies Not Reportable 09/21/16 03:38 Sickle Cells Not Reportable 09/21/16 03:38 Target Cells Not Reportable 09/21/16 03:38 Tear Drop Cells Not Reportable 09/21/16 03:38 Ovalocytes Not Reportable 09/21/16 03:38 Helmet Cells Not Reportable 09/21/16 03:38 Ngo-Edith Endave Bodies Not Reportable 09/21/16 03:38 [place] Rings Not Reportable 09/21/16 03:38 John Cells Not Reportable 09/21/16 03:38 Bite Cells Not Reportable 09/21/16 03:38 Crenated Cell Not Reportable 09/21/16 03:38 Elliptocytes Not Reportable 09/21/16 03:38 Acanthocytes (Spur) Not Reportable 09/21/16 03:38 Rouleaux Not Reportable 09/21/16 03:38 Hemoglobin C Crystals Not Reportable 09/21/16 03:38 Schistocytes Not Reportable 09/21/16 03:38 Malaria parasites Not Reportable 09/21/16 03:38 Miguel Angel Bodies Not Reportable 09/21/16 03:38 Hem Pathologist Commnt No 09/21/16 03:38 PT 14.3 Sec. (12.2-14.9) 09/25/16 04:48 INR 1.12 (0.87-1.13) 09/25/16 04:48 APTT 41.8 Sec. (24.2-36.6) H 09/17/16 18:13 D-Dimer 567.12 ng/mlDDU (0-234) H 09/20/16 18:11 POC ABG pH 7.415 (7.35-7.45) 09/20/16 16:47 POC ABG pCO2 37.1 (35-45) 09/20/16 16:47 POC ABG pO2 105 (80-105) 09/20/16 16:47 POC ABG HCO3 23.8 09/20/16 16:47 POC ABG Total CO2 25 09/20/16 16:47 POC ABG O2 Sat 98 09/20/16 16:47 POC ABG Base Excess -1 09/20/16 16:47 FiO2 28 % 09/20/16 16:47 Sodium 133 mmol/L (137-145) L 09/25/16 04:48 Potassium 4.2 mmol/L (3.6-5.0) 09/25/16 04:48 Chloride 92.7 mmol/L (98-107) L 09/25/16 04:48 Carbon Dioxide 24 mmol/L (22-30) 09/25/16 04:48 Anion Gap 21 mmol/L 09/25/16 04:48 BUN 34 mg/dL (9-20) H 09/25/16 04:48 Creatinine 1.2 mg/dL (0.8-1.5) 09/25/16 04:48 Estimated GFR > 60 ml/min 09/25/16 04:48 BUN/Creatinine Ratio 28.33 % 09/25/16 04:48 Glucose 116 mg/dL (75-100) H 09/25/16 04:48 POC Glucose 270 (70-105) H 09/25/16 17:52 Hemoglobin A1c 5.7 % (4-6) 09/17/16 18:13 Lactic Acid 4.10 mmol/L (0.7-2.0) H* 09/21/16 17:54 Calcium 8.9 mg/dL (8.4-10.2) 09/25/16 04:48 Phosphorus 3.90 mg/dL (2.5-4.5) 09/18/16 03:21 Magnesium 2.90 mg/dL (1.7-2.3) H 09/18/16 03:21 Total Bilirubin 0.40 mg/dL (0.1-1.2) 09/17/16 18:13 AST 32 units/L (5-40) 09/17/16 18:13 ALT 12 units/L (7-56) 09/17/16 18:13 Alkaline Phosphatase 126 units/L (35-129) 09/17/16 18:13 Ammonia 27.0 umol/L (25-60) 09/17/16 19:15 Total Creatine Kinase 325 units/L (55-170) H 09/20/16 18:11 CK-MB (CK-2) 2.2 ng/mL (0.0-4.0) 09/20/16 18:11 CK-MB (CK-2) Rel Index 0.6 (0-4) 09/20/16 18:11 Troponin T < 0.010 ng/mL (0.00-0.029) 09/20/16 18:11 C-Reactive Protein 9.30 mg/dL (0.00-1.30) H 09/18/16 03:21 Total Protein 7.2 g/dL (6.3-8.2) 09/17/16 18:13 Albumin 4.0 g/dL (3.9-5) 09/17/16 18:13 Albumin/Globulin Ratio 1.3 % 09/17/16 18:13 Triglycerides 98 mg/dL (2-149) 09/17/16 18:13 Cholesterol 139 mg/dL (50-199) 09/17/16 18:13 LDL Cholesterol Direct 49 mg/dL (50-130) L 09/17/16 18:13 HDL Cholesterol 71 mg/dL (40-59) H 09/17/16 18:13 Cholesterol/HDL Ratio 1.95 % 09/17/16 18:13 TSH 0.519 mlU/mL (0.270-4.200) 09/17/16 19:15 Urine Color Yellow (Yellow) 09/17/16 18:43 Urine Turbidity Clear (Clear) 09/17/16 18:43 Urine pH 5.0 (5.0-7.0) 09/17/16 18:43 Ur Specific [place] 1.014 (1.003-1.030) 09/17/16 18:43 Urine Protein <15 mg/dl mg/dL (Negative) 09/17/16 18:43 Urine Glucose (UA) Neg mg/dL (Negative) 09/17/16 18:43 Urine Ketones Neg mg/dL (Negative) 09/17/16 18:43 Urine Blood Sm (Negative) 09/17/16 18:43 Urine Nitrite Neg (Negative) 09/17/16 18:43 Urine Bilirubin Neg (Negative) 09/17/16 18:43 Urine Urobilinogen < 2.0 mg/dL (<2.0) 09/17/16 18:43 Ur Leukocyte Esterase Neg (Negative) 09/17/16 18:43 Urine WBC (Auto) < 1.0 /HPF (0.0-6.0) 09/17/16 18:43 Urine RBC (Auto) 1.0 /HPF (0.0-6.0) 09/17/16 18:43 Salicylates < 0.3 mg/dL (2.8-20.0) L 09/17/16 19:15 Acetaminophen < 15.0 ug/mL (10.0-30.0) 09/17/16 18:13 Plasma/Serum Alcohol < 0.01 gm% (0-0.07) 09/17/16 19:15
[2016-09-25] MEDS: PERCOCET 5/325 PO PRN (23:32)
[2016-09-26] MEDS: DUONEB *Not for PRN Use IH SCH ×2 (02:19→08:21)
[2016-09-26 05:55] LABS: INR 1.25 (0.87-1.13)
[2016-09-26] MEDS: Centrum Liq PO SCH ×2 (08:49→10:00)
[2016-09-26] MEDS: HCTZ PO SCH ×2 (08:50→10:00)
[2016-09-26] MEDS: PEPCID PO SCH ×2 (08:51→10:00)
[2016-09-26] MEDS: DELTASONE PO SCH ×2 (08:51→10:00)
[2016-09-26] MEDS: PERCOCET 5/325 PO PRN (08:52)
[2016-09-26] MEDS: LEVEMIR SUB-Q SCH ×2 (08:54→10:00)
--- NOTE | 2016-09-26 09:14 | Discharge Summary ---
Providers - Providers Date of Admission: 09/17/16 20:33 Date of discharge: 09/26/16 Attending physician: TANGELA TAYLOR MD 09/18/16 11:17 Consult to Dietitian/Nutrition [CONS] Routine Physician Instructions: Reason For Exam: Reason for Consult: Write/Manage Tube Feeding 09/20/16 16:07 Speech Therapy Evaluation and Treat [CONS] Urgent Reason For Exam: post endotracheal extubation 09/22/16 13:11 Physical Therapy Evaluation and Treat [CONS] Routine Comment: Reason For Exam: eval Primary care physician: ISADORA GOLDBERG Hospitalization Reason for admission: Acute hypoxic respiratory failure, Altered mental status Condition: Stable Hospital course: Admission HPI: 80-year-old -Filipino man with past medical history significant for COPD , diabetes, hypertension, DVT, PE was brought by EMS for altered mental status. Per report the patient was found sitting in the corner. Patient is intubated and on mechanical ventilation and history is obtained from chart review. While in the emergency department he was hypoxic and he was put on BiPAP and he started to get better, but the patient become agitated and took off the BiPAP so the ER doctor intubated him and started on mechanical ventilation. Patient' s INR is 2.47 which is therapeutic. Patient was admitted to ICU and was treated for Acute hypoxic respiratory failure, COPD exacerbation and patient showed improvement and was extubated and transferred to the medical floor the plan was to discharged to SNF/ acute rehab but we couldn't because the patient was discharged from acute rehab in the last 2 months, and D/Barrie home with home health. He was hemodynamically stable at the time of discharge and his medications were reviewed and refilled. patient's INR was sub therapeutic and warfarin dose was increased and advised to have follow up with his PCP in the next 3-5 days and the patient understood and he said he will schedule an appointment with his PCP. Disposition: [id number] HOME UNDER HOME [facility] Time spent for discharge: 31 minutes - Discharge Diagnoses (1) Acute exacerbation of COPD with asthma Status: Acute (2) Acute hypoxemic respiratory failure Status: Acute (3) Respiratory failure Status: Acute Qualifiers: Chronicity: C Respiratory failure complication: R (4) MICHAEL (acute kidney injury) Status: Acute (5) Deep vein thrombosis (DVT) of left lower extremity Status: Acute Qualifiers: Affected thrombotic vein of extremity: unspecified vein of extremity Chronicity: acute Qualified Code(s): I82.402 - Acute embolism and thrombosis of unspecified deep veins of left lower extremity Core Measure Documentation - Palliative Care Palliative Care/ Comfort Measures: Not Applicable - Core Measures Any of the following diagnoses?: history only (DVT) Exam - Physical Exam Narrative exam: Patient is on intranasal oxygen The patient appeared well nourished and normally developed. Vital signs as documented. Head exam is unremarkable. No scleral icterus . Neck is without jugular venous distension, thyromegaly, or carotid bruits. Lungs are clear to auscultation. Cardiac exam reveals regular rate and Rhythm. First and second heart sounds normal. No murmurs, rubs or gallops. Abdominal exam reveals normal bowel sounds, no masses, no organomegaly and no aortic enlargement. Extremities are nonedematous and both femoral and pedal pulses are normal. MOVIE STUNT PERFORMER: Alert and oriented 3. - Constitutional Vitals: Temp Pulse Resp BP Pulse Ox 98.8 F 94 H 16 117/61 98 09/25/16 22:00 09/26/16 08:37 09/26/16 08:37 09/25/16 23:12 09/26/16 08:22 Plan Activity: no restrictions Weight Bearing Status: Full Weight Bearing Diet: low cholesterol, low salt, diabetic Follow up with: PRIMARY CARE, [Referring] - 3-5 Days Forms: Warfarin Discharge Instruction Prescriptions: Coumadin 5 mg PO QHS #30 Ipratropium/Albuter (Nf) [Combivent Inhaler] 2 puff IH QID #1 inha Levofloxacin [Levaquin TAB] 500 mg PO QDAY #7 tablet Lisinopril/Hydrochlorothiazide [Zestoretic 20-25 mg] 1 tab PO QDAY #30 tablet Prednisone [predniSONE 10 mg (6-Day Pack, 21 Tabs)] 10 mg PO .TAPER #1 tab.ds.pk traMADol [Ultram 50 MG tab] 50 mg PO BID PRN #30 tablet PRN Reason: Pain Warfarin [Coumadin] 3 mg PO DAILY@1700 #30 tablet
[2016-09-26] MEDS: ZESTRIL PO SCH (10:00)
[2016-09-26] MEDS: LOPRESSOR PO SCH (10:00)
[2016-09-26 10:52] VITALS: BP 91/56
== END 2016-09-26 12:04 | disposition home health service (06) | DRG 208 ==
LOC: ED 17:55 → CC1 20:33 → CC2 09-21 15:16
PROVIDERS: ADMIT Internal Medicine; ATTEND Internal Medicine
PROC: 5A1945Z Respiratory Ventilation, 24-96 Consecutive Hours (ICD-10-PCS; principal; 2016-09-17)
PROC: 4A033R1 Measurement of Arterial Saturation, Peripheral, Percutaneous Approach (ICD-10-PCS; 2016-09-17)
PROC: 5A09457 Assistance with Respiratory Ventilation, 24-96 Consecutive Hours, Continuous Positive Airway Pressure (ICD-10-PCS; 2016-09-17)
PROC: 0BH17EZ Insertion of Endotracheal Airway into Trachea, Via Natural or Artificial Opening (ICD-10-PCS; 2016-09-17)
DX: J96.01 Acute respiratory failure with hypoxia (principal); G93.41 Metabolic encephalopathy; N17.0 Acute kidney failure with tubular necrosis; J44.1 Chronic obstructive pulmonary disease with (acute) exacerbation; K92.2 Gastrointestinal hemorrhage, unspecified; I10 Essential (primary) hypertension; E11.9 Type 2 diabetes mellitus without complications; Z96.649 Presence of unspecified artificial hip joint; T45.515A Adverse effect of anticoagulants, initial encounter; D72.829 Elevated white blood cell count, unspecified; J45.909 Unspecified asthma, uncomplicated; Z91.013 Allergy to seafood; Z91.041 Radiographic dye allergy status; Z86.718 Personal history of other venous thrombosis and embolism; Z86.711 Personal history of pulmonary embolism; Y92.89 Other specified places as the place of occurrence of the external cause
CPT/HCPCS: 36415; 36600; 70360; 70450; 71010; 74000; 80048; 80053; 80061; 80320; 81001; 82140; 82550; 82553; 82803; 82962; 83036; 83735; 84100; 84443; 84484; 85007; 85025; 85379; 85610; 85730; 86140; 87070; 87086; 87205; 93005; 93010; 93306; 94002; 94003; 94640; 94660; 94760; 96374; 96375; 96376; 99291; G0480; G8978-GP; G8979-GP; G8996-GN; G8997-GN; G8998-GN; J0696; J1630; J1815; J1818; J1956; J2250; J2930; J3010; J3475; J7030; J7040; J7512

== ENCOUNTER 2016-11-12 17:05 | Emergency (ER) | payer MEDICARE ==
[2016-11-12 18:30] LABS: Basophils % (Auto) 0.8 % (0.0-1.8); Eosinophils % (Auto) 1.5 % (0.0-4.3); Hematocrit 27.1 % (35.5-45.6); Hemoglobin 8.6 gm/dl (11.8-15.2); Mean Corpuscular HGB Conc 32 % (32-34); Mean Corpuscular Hemoglobin 25 pg (28-32); Mean Corpuscular Volume 79 fl (84-94); Platelet Count 560 K/mm3 (140-440); Red Blood Count 3.42 M/mm3 (3.65-5.03); Red Cell Distribution Width 20.2 % (13.2-15.2); White Blood Count 9.2 K/mm3 (4.5-11.0)
[2016-11-12 18:33] LABS: Alanine Aminotransferase 9 units/L (7-56); Albumin 3.9 g/dL (3.9-5); Albumin/Globulin Ratio 1.2 %; Alkaline Phosphatase 123 units/L (35-129); Anion Gap 21 mmol/L; BUN/Creatinine Ratio 16.25; Blood Urea Nitrogen 13 mg/dL (9-20); Calcium 9.1 mg/dL (8.4-10.2); Carbon Dioxide 22 mmol/L (22-30); Chloride 94.6 mmol/L (98-107); Glucose 126 mg/dL (75-100); Lipase 15 units/L (13-60); Potassium 4.7 mmol/L (3.6-5.0); Sodium 133 mmol/L (137-145); Total Protein 7.2 g/dL (6.3-8.2)
[2016-11-13 01:07] VITALS: BP 151/76
[2016-11-13] MEDS ORDERED: TYLENOL #3 PO ONE (01:18)
[2016-11-13] MEDS ORDERED: BENTYL PO ONE (01:18)
[2016-11-13] MEDS ORDERED: NACL 0.9% 250ML 250 ML IV ONE (01:18)
--- NOTE | 2016-11-13 01:33 | Emergency Department Report ---
ED General Adult HPI - General Chief complaint: Adult Asthma Stated complaint: ASTHMA Time Seen by Provider: 11/13/16 00:47 Source: patient, RN notes reviewed, old records reviewed Mode of arrival: Ambulatory Limitations: Physical Limitation - History of Present Illness Initial comments: This is a 80-year-old male, I have evaluated him in the past. Past medical history includes hypertension, diabetes, arthritis, COPD, history of left lower extremity DVT, pulmonary embolus, Coumadin toxicity, severe left hip DJD. Patient reports he is not taking Coumadin for the past month. Patient presents to the ER today with complaint of lower abdominal pain. The pain is in the bilateral lower quadrants. He reports it has been present for 6 days. He reports the pain radiates back and forth. The patient has no exacerbating or relieving factors. The patient denies headache, neck pain, chest pain, shortness of breath, irritative/obstructive urinary symptoms, and testicular pain. He indicates the pain does not have exacerbating or relieving factors. -: Gradual Location: abdomen Severity scale (0 -10): 8 Consistency: constant Improves with: none Worsens with: none Associated Symptoms: denies other symptoms - Related Data Previous Rx's Medication Instructions Recorded Last Taken Type Coumadin 5 mg PO QHS #30 09/26/16 Unknown Rx Ipratropium/Albuter (Nf) 2 puff IH QID #1 inha 09/26/16 Unknown Rx [Combivent Inhaler] Levofloxacin [Levaquin TAB] 500 mg PO QDAY #7 tablet 09/26/16 Unknown Rx Lisinopril/Hydrochlorothiazide 1 tab PO QDAY #30 tablet 09/26/16 Unknown Rx [Zestoretic 20-25 mg] Prednisone [predniSONE 10 mg 10 mg PO .TAPER #1 tab.ds.pk 09/26/16 Unknown Rx (6-Day Pack, 21 Tabs)] Warfarin [Coumadin] 3 mg PO DAILY@1700 #30 tablet 09/26/16 Unknown Rx traMADol [Ultram 50 MG tab] 50 mg PO BID PRN #30 tablet 09/26/16 Unknown Rx Allergies Allergy/AdvReac Type Severity Reaction Status Date / Time iodine Allergy Shortness Verified 09/09/15 21:37 of Breath shellfish derived Allergy Shortness Verified 10/31/15 02:03 of Breath ED Review of Systems ROS: Stated complaint: ASTHMA Other details as noted in HPI Constitutional: malaise. denies: fever Eyes: denies: vision change ENT: denies: epistaxis Respiratory: shortness of breath (chronic) Cardiovascular: denies: chest pain Gastrointestinal: abdominal pain Musculoskeletal: arthralgia (chronic) Neurological: weakness ED Past Medical Hx - Past Medical History Previous Medical History?: Yes Hx Hypertension: Yes Hx Diabetes: Yes Hx Arthritis: Yes Hx Asthma: Yes Hx COPD: Yes Hx HIV: No Additional medical history: left foot dvt, left hip pain - Surgical History Past Surgical History?: Yes Hx Appendectomy: Yes Additional Surgical History: Total hip replacement and surgeries x 19 (10/31/15: currently has residual infections from most recent hip replacement performed in 2014) - Social History Smoking Status: Former Smoker Substance Use Type: Prescribed - Medications Home Medications: Home Medications Medication Instructions Recorded Confirmed Last Taken Type Coumadin 5 mg PO QHS #30 09/26/16 Unknown Rx Ipratropium/Albuter (Nf) 2 puff IH QID #1 inha 09/26/16 Unknown Rx [Combivent Inhaler] Levofloxacin [Levaquin TAB] 500 mg PO QDAY #7 tablet 09/26/16 Unknown Rx Lisinopril/Hydrochlorothiazide 1 tab PO QDAY #30 tablet 09/26/16 Unknown Rx [Zestoretic 20-25 mg] Prednisone [predniSONE 10 mg 10 mg PO .TAPER #1 tab.ds.pk 09/26/16 Unknown Rx (6-Day Pack, 21 Tabs)] Warfarin [Coumadin] 3 mg PO DAILY@1700 #30 tablet 09/26/16 Unknown Rx traMADol [Ultram 50 MG tab] 50 mg PO BID PRN #30 tablet 09/26/16 Unknown Rx ED Physical Exam - General Limitations: Physical Limitation General appearance: alert, in no apparent distress - Head Head exam: Present: atraumatic, normocephalic - Eye Eye exam: Present: normal appearance, EOMI. Absent: nystagmus - ENT ENT exam: Present: normal exam, normal orophraynx, mucous membranes moist, normal external ear exam - Neck Neck exam: Present: normal inspection, full ROM. Absent: tenderness, meningismus - Respiratory Respiratory exam: Present: wheezes (chronic mild wheezing noted.). Absent: respiratory distress, rales, rhonchi, stridor, chest wall tenderness - Cardiovascular Cardiovascular Exam: Present: normal rhythm, tachycardia, normal heart sounds. Absent: systolic murmur, diastolic murmur, rubs, gallop - GI/Abdominal GI/Abdominal exam: Present: soft, normal bowel sounds. Absent: distended, tenderness, guarding, rebound, rigid - Rectal Rectal exam: Present: deferred - exam: Absent: testicular tenderness - Extremities Exam Extremities exam: Present: normal inspection, full ROM, normal capillary refill , other (there is 5 out of 5 strength in the bilateral upper, and right lower extremity. Strength is intact to distal left lower extremity. Patient has difficulty ranging the left hip secondary to chronic pain.). Absent: calf tenderness - Back Exam Back exam: Present: normal inspection, full ROM. Absent: paraspinal tenderness - Neurological Exam Neurological exam: Present: alert, other (Extraocular movements intact. Tongue midline. No facial droop. Facial sensation intact to light touch in the V1, V2 , V3 distribution bilaterally. 5 and 5 strength in 4 extremities.. Sensation is intact to light touch in 4 extremities.). Absent: motor sensory deficit - Psychiatric Psychiatric exam: Present: normal affect, normal mood - Skin Skin exam: Present: warm, dry, intact, normal color. Absent: rash ED Course Vital Signs 11/12/16 11/13/16 17:41 01:06 Temperature 97.7 F 98.6 F Pulse Rate 108 H 100 H Respiratory 18 16 Rate Blood Pressure 129/61 Blood Pressure 151/76 [Left] O2 Sat by Pulse 98 100 Oximetry - Reevaluation(s) Reevaluation #1: 11/13/16 01:35 Differential diagnosis: Colitis, diverticulitis, constipation, appendicitis, urinary tract infection, fracture, dislocation, psoas abscess, retroperitoneal hematoma, AAA Assessment and plan: 80-year-old male who is noncompliant with Coumadin therapy , as per review of old medical records, Coumadin was discontinued in the past, with nonspecific lower abdominal pain. He is afebrile, with tachycardia, but otherwise reassuring vital signs. Laboratory studies thus far unremarkable, has chronic anemia, which has been evaluated in the past. He can follow-up with his primary care doctor for this. Patient will be treated symptomatically , urinalysis is pending, CT scan of the abdomen and pelvis is pending. Reevaluation #2: 11/13/16 05:45 Patient left AGAINST MEDICAL ADVICE. Risks of leaving, including disability, , paralysis, loss of quality of life extensively discussed with patient, who verbalized understanding. Elly conversation witnessed by nurse PORTIA QUAN ED Medical Decision Making - Lab Data Result diagrams: 11/12/16 17:58 11/12/16 17:58 Vital Signs 11/12/16 11/13/16 17:41 01:06 Temperature 97.7 F 98.6 F Pulse Rate 108 H 100 H Respiratory 18 16 Rate Blood Pressure 129/61 Blood Pressure 151/76 [Left] O2 Sat by Pulse 98 100 Oximetry Lab Results 11/12/16 11/12/16 11/12/16 Range/Units 17:52 17:58 17:58 WBC 9.2 (4.5-11.0) K/mm3 RBC 3.42 L (3.65-5.03) M/mm3 Hgb 8.6 L (11.8-15.2) gm/dl Hct 27.1 L (35.5-45.6) % MCV 79 L (84-94) fl MCH 25 L (28-32) pg MCHC 32 (32-34) % RDW 20.2 H (13.2-15.2) % Plt Count 560 H (140-440) K/mm3 Lymph % (Auto) 11.7 L (13.4-35.0) % [place] % (Auto) 9.9 H (0.0-7.3) % Eos % (Auto) 1.5 (0.0-4.3) % Baso % (Auto) 0.8 (0.0-1.8) % Lymph # 1.1 L (1.2-5.4) K/mm3 [place] # 0.9 H (0.0-0.8) K/mm3 Eos # 0.1 (0.0-0.4) K/mm3 Baso # 0.1 (0.0-0.1) K/mm3 Seg Neutrophils % 76.1 H (40.0-70.0) % Seg Neutrophils # 7.0 (1.8-7.7) K/mm3 Sodium 133 L (137-145) mmol/L Potassium 4.7 (3.6-5.0) mmol/L Chloride 94.6 L (98-107) mmol/L Carbon Dioxide 22 (22-30) mmol/L Anion Gap 21 mmol/L BUN 13 (9-20) mg/dL Creatinine 0.8 (0.8-1.5) mg/dL Estimated GFR > 60 ml/min BUN/Creatinine Ratio 16.25 % Glucose 126 H (75-100) mg/dL POC Glucose 147 H (70-105) Calcium 9.1 (8.4-10.2) mg/dL Total Bilirubin 0.20 (0.1-1.2) mg/dL AST 11 (5-40) units/L ALT 9 (7-56) units/L Alkaline Phosphatase 123 (35-129) units/L Total Protein 7.2 (6.3-8.2) g/dL Albumin 3.9 (3.9-5) g/dL Albumin/Globulin Ratio 1.2 % Lipase 15 (13-60) units/L - Radiology Data Radiology results: pending, report reviewed, image reviewed Critical care attestation.: If time is entered above; I have spent that time in minutes in the direct care of this critically ill patient, excluding procedure time. ED Disposition Clinical Impression: Abdominal pain Disposition: DC-07 LEFT AGAINST MED ADVICE Is pt being admited?: No Does the pt Need Aspirin: No Condition: Undetermined Referrals: PRIMARY CARE, [Primary Care Provider] - 3-5 Days
[2016-11-13 02:04] LABS: Bilirubin,Urine NEG (Negative); Blood,Urine NEG (Negative); Ketones,Urine NEG (Negative); Leukocyte Esterase,Urine NEG (Negative); Mucus,Urine FEW /HPF; Nitrite,Urine NEG (Negative); Protein,Urine <15 mg/dL mg/dL (Negative); Urobilinogen,Urine < 2.0 mg/dL (<2.0)
[2016-11-13 02:13] LABS: INR 1.25 (0.87-1.13)
[2016-11-13] MEDS ORDERED: BENTYL ONE (03:25)
[2016-11-13] MEDS ORDERED: TYLENOL #3 ONE (03:26)
--- NOTE | 2016-11-13 04:38 | Cat Scan Report ---
FINAL REPORT EXAM: CT ABDOMEN PELVIS W CON HISTORY: lower abd pain epigastric pain TECHNIQUE: CT images are acquired through the Abdomen and Pelvis arterial and delayed venous phases following intravenous administration of contrast. Transaxial, coronal and sagittal reformations are provided. PRIORS: CT chest angiogram 05/12/2016 FINDINGS: Partially visualized intrathoracic contents are remarkable for sequela of COPD. Numerous hepatic cysts are present, the largest of which are in the left hepatic lobe measuring up to 4.5 cm. The liver, gallbladder, pancreas, spleen, and adrenal glands are otherwise unremarkable. Kidneys show no worrisome lesions, hydronephrosis, or calculi. Urinary bladder is remarkable for focal mass effect from the anterior prostate seen on axial series 3, image 135. Focal anterior peripheral prostate mass protrudes into the base of the bladder. Gastric antral and proximal duodenal wall thickening with adjacent edema and stranding. No focal fluid collection to suggest abscess formation. No pneumoperitoneum hollow enteric organs are otherwise normal in caliber. No acute appendicitis. No ascites. Aorta is normal in course and caliber with scattered atherosclerosis. Superficial soft tissues are unremarkable. Proximal left femur hardware. Superior acetabular nonunion with fixation hardware present. There is an expansile joint effusion containing small foci of air. Acetabular protrusio with cortical interruption and destruction. Periosteal reaction is seen within the acetabulum on coronal image 80. Diffuse left hip demineralization. IMPRESSION: Gastritis/duodenitis without pneumoperitoneum or abscess formation. Correlation for underlying ulcer disease is requested. Expansile left hip joint effusion status post prior femur and acetabular fixation is concerning for infection. Correlation with relevant laboratory values and joint aspiration is requested. Correlation with prior postoperative imaging is also requested to assess for interval change. Focal protrusion from the anterior superior prostate into the urinary bladder is concerning for prostate mass. Urology follow-up is recommended. Dr. Marie discussed findings with Dr. Currie at [phone] [employer] following the examination.
[2016-11-13] MEDS ORDERED: NACL ONE (05:50)
== END 2016-11-13 04:05 | disposition left against medical advice (07) ==
LOC: ED 17:05
DX: R10.31 Right lower quadrant pain (principal); R10.32 Left lower quadrant pain; I10 Essential (primary) hypertension; J45.909 Unspecified asthma, uncomplicated; M19.90 Unspecified osteoarthritis, unspecified site; J44.9 Chronic obstructive pulmonary disease, unspecified; Z87.891 Personal history of nicotine dependence; Z98.890 Other specified postprocedural states; Z79.01 Long term (current) use of anticoagulants; Z91.013 Allergy to seafood
CPT/HCPCS: 36415; 74177; 80053; 81001; 82140; 82962; 83690; 85025; 85610; 99284; J7050; Q9967